=== PATIENT | male | born 1965 | race Caucasian/White ===

== ENCOUNTER 2019-09-16 17:35 | Inpatient (IN) ==
[2019-09-16] MEDS ORDERED: LACTATED RINGERS 1,000 ML IV ONE (18:44)
[2019-09-16] MEDS ORDERED: HYDROmorphone 2 MG/ML VIAL IV SCH ×2 (18:45→20:30)
--- NOTE | 2019-09-16 18:46 | Emergency Department Note ---
General Adult HPI - General Chief complaint: Cold/Flu Symptoms Stated complaint: SOB/weakness Time Seen by Provider: 09/16/19 18:40 Source: patient Mode of arrival: ambulatory Limitations: no limitations - History of Present Illness HPI Narrative: This patient has been ill for the last 4 days with flulike symptoms however his flu swab was negative. He has had a lot of cough and congestion and feels dehydrated but no nausea or vomiting, also has headache and general achiness. - Related Data Home Medications Medication Instructions Recorded Confirmed cyanocobalamin (vitamin B-12) 2,000 mcg PO QDAY 08/26/15 09/16/19 2,000 mcg tablet,extended release magnesium oxide 400 mg PO BID cap 08/26/15 09/16/19 thiamine HCl (vitamin B1) 100 mg 100 mg PO QDAY 06/05/17 09/16/19 tablet antibiotic unknown PO 11/12/18 03/18/19 Previous Rx's Medication Instructions Recorded cholecalciferol (vitamin D3) 10,000 unit PO QDAY #1 cap 09/20/15 10,000 unit capsule potassium chloride 20 mEq oral 20 meq PO BID #180 packet 08/28/17 packet Bipap #1 each 11/29/17 apixaban 5 mg tablet 5 mg PO BID 90 Days #180 tab 04/30/18 allopurinol 100 mg tablet 200 mg PO QDAY #180 tab 12/17/18 metoprolol tartrate 50 mg tablet 50 mg PO BID #180 tab 12/17/18 gabapentin 300 mg capsule 300 mg PO TID #180 cap 04/06/19 amiodarone 200 mg tablet 200 mg PO QDAY #90 tab 04/23/19 sertraline 100 mg tablet 200 mg PO QDAY #60 tab 04/30/19 simvastatin 40 mg tablet 40 mg PO QAM #90 tab 07/16/19 furosemide 40 mg tablet 40 mg PO BID #180 tab 09/03/19 Allergies Allergy/AdvReac Type Severity Reaction Status Date / Time No Known Drug Allergies Allergy Verified 03/18/19 09:51 Review of Systems All systems ED: reviewed and negative except as stated. Past Medical History - Past Medical History [facility] Narrative: Medical History (Last Reviewed 03/23/19 @ 09:03 by Evin Elliott DO) SILVIA (obstructive sleep apnea) (Chronic) Upper respiratory infection (Acute) Gout (Acute) Congenital vascular anomalies (Chronic) Chest tightness (Acute) Chronic kidney disease, stage III (moderate) (Chronic 03/17/15) Vitamin D deficiency (Chronic) B12 deficiency (Chronic 04/21/14) Tremor (Chronic) Prediabetes (Chronic 04/21/14) Generalized polyneuropathy (Chronic 04/07/14) Morbid obesity (Chronic 04/07/14) Mitral regurgitation (Chronic) Insomnia (Chronic) Essential hypertension (Chronic) Dyslipidemia (Chronic) Alcoholic hepatitis (Chronic 08/14/13) Chronic GERD (Chronic) Erectile dysfunction (Chronic 04/07/14) Depression (Chronic) Congestive heart failure (Chronic 07/05/14) Atrial fibrillation (Chronic 07/05/14) Prinzmetal angina (Chronic 03/28/14) Microcytic anemia (Chronic 08/15/13) Alcohol dependence (Chronic 01/26/15) Alcohol abuse (Chronic) COPD (chronic obstructive pulmonary disease) (Chronic) Cataract (Chronic) Heart disease (Chronic) Disorder of gallbladder (Inactive) Heart disease (Inactive) Renal failure (Inactive) Past Surgical History (Last Reviewed 03/23/19 @ 09:03 by Evin Elliott DO) H/O gastric bypass (Chronic 04/07/14) History of cholecystectomy (Chronic ~2003) History of colonoscopy (Chronic) History of hernia surgery (Chronic) Hx of cholecystectomy (Inactive) Hx of colonoscopy (Inactive) Family History (Last Reviewed 03/23/19 @ 09:03 by Evin Elliott DO) Unknown Malignant neoplasm of urinary bladder Malignant neoplasm of colon Mother Cerebrovascular accident (CVA) Sister Acute myocardial infarction Medical history: Reports: atrial fibrillation, CHF, DM, GERD, hyperlipidemia, hypertension, renal disease, valvular heart disease Psychiatric history: Reports: depression - Social History smoking status: Former smoker Alcohol use: Reports: Heavy Drug use: Reports: none Physical Exam Limitations: no limitations General appearance: alert Head: atraumatic Eye: Present: normal appearance ENT: Present: normal exam Neck: Present: normal inspection Chest: Present: normal inspection Respiratory: Present: rales/crackles Cardiovascular: Present: regular rate, normal rhythm, normal heart sounds Abdominal: Present: soft. Absent: distention, tenderness Neurological: Present: alert Psychiatric: Present: normal affect Skin: Present: warm, dry Course Vital Signs Temperature 97.1 F 09/16/19 17:37 Pulse Rate 11 L 09/16/19 17:37 Respiratory Rate 22 09/16/19 17:37 Blood Pressure 171/82 09/16/19 17:37 Pulse Oximetry (%) 94 09/16/19 17:37 Temperature 98.9 F 09/16/19 21:42 Pulse Rate 102 H 09/16/19 21:42 Respiratory Rate 18 09/16/19 21:42 Blood Pressure 155/76 09/16/19 21:42 Pulse Oximetry (%) 96 09/16/19 21:42 Medical Decision Making - MDM Narrative Medical decision making narrative: This patient appears to have pneumonia with a bit of an elevated lactic acid. He was cultured and treated with Zithromax and Rocephin. He will be admitted to the hospital. - Lab Data Lab results reviewed: Yes I reviewed the patient's lab results. Result diagrams: 09/16/19 19:00 09/16/19 19:00 Lab Results 09/16/19 09/16/19 09/16/19 Range/Units 19:00 19:00 19:00 WBC 3.2 L (4.5-11.0) K/mcL RBC 3.77 L (4.50-5.90) M/mcL Hgb 11.6 L (13.5-16.5) g/dL Hct 35.3 L (41.0-55.0) % MCV 93.6 (80.0-100.0) fL MCH 30.8 (26.0-34.0) pg MCHC 32.9 (31.0-36.0) g/dL RDW 18.3 H (11.5-14.5) % Plt Count 130 L (140-440) K/mcL MPV 7.0 L (7.4-10.4) fL Gran % 80.6 H (38.0-78.0) % Lymph % (Auto) 10.3 L (15.5-49.0) % [place] % (Auto) 8.8 (1.0-12.0) % Eos % (Auto) 0 (0.0-7.0) % Baso % (Auto) 0.3 (0.0-2.0) % Gran # 2.6 (1.8-8.0) K/mcL Lymph # (Auto) 0.3 L (1.5-4.8) K/mcL [place] # (Auto) 0.3 (0.1-0.9) K/mcL Eos # (Auto) 0 (0.0-0.7) K/mcL Baso # (Auto) 0 (0.0-0.3) K/mcL VBG Lactic Acid 3.7 H (0.5-2.0) mmol/L Sodium 139 (133-145) mmol/L Potassium 3.7 (3.3-5.1) mmol/L Chloride 100 (96-108) mmol/L Carbon Dioxide 19 L (22-30) mmol/L Anion Gap 20.0 H (8-16) BUN 12 (6-20) mg/dl Creatinine 0.9 (0.7-1.2) mg/dl GFR Calculation 95 Glucose 97 (70-105) mg/dL Calcium 8.5 L (8.6-10.4) mg/dl Total Bilirubin 0.4 (0.0-1.0) mg/dL AST 72 H (0-37) U/l ALT 33 (0-40) U/l Alkaline Phosphatase 106 (39-117) U/L Total Protein 6.8 (5.9-8.4) gm/dL Albumin 4.0 (3.2-5.2) gm/dL Globulin 2.8 (2.2-3.7) gm/dL Albumin/Globulin Ratio 1.4 (1.0-2.3) Procalcitonin (<0.10) ng/mL 09/16/19 Range/Units 19:00 WBC (4.5-11.0) K/mcL RBC (4.50-5.90) M/mcL Hgb (13.5-16.5) g/dL Hct (41.0-55.0) % MCV (80.0-100.0) fL MCH (26.0-34.0) pg MCHC (31.0-36.0) g/dL RDW (11.5-14.5) % Plt Count (140-440) K/mcL MPV (7.4-10.4) fL Gran % (38.0-78.0) % Lymph % (Auto) (15.5-49.0) % [place] % (Auto) (1.0-12.0) % Eos % (Auto) (0.0-7.0) % Baso % (Auto) (0.0-2.0) % Gran # (1.8-8.0) K/mcL Lymph # (Auto) (1.5-4.8) K/mcL [place] # (Auto) (0.1-0.9) K/mcL Eos # (Auto) (0.0-0.7) K/mcL Baso # (Auto) (0.0-0.3) K/mcL VBG Lactic Acid (0.5-2.0) mmol/L Sodium (133-145) mmol/L Potassium (3.3-5.1) mmol/L Chloride (96-108) mmol/L Carbon Dioxide (22-30) mmol/L Anion Gap (8-16) BUN (6-20) mg/dl Creatinine (0.7-1.2) mg/dl GFR Calculation Glucose (70-105) mg/dL Calcium (8.6-10.4) mg/dl Total Bilirubin (0.0-1.0) mg/dL AST (0-37) U/l ALT (0-40) U/l Alkaline Phosphatase (39-117) U/L Total Protein (5.9-8.4) gm/dL Albumin (3.2-5.2) gm/dL Globulin (2.2-3.7) gm/dL Albumin/Globulin Ratio (1.0-2.3) Procalcitonin < 0.05 (<0.10) ng/mL - Radiology Data Radiology results reviewed: Yes I reviewed the patient's radiology results. Disposition Pt seen by SUBASSEMBLY SUPERVISOR/PA only: No Clinical Impression: Community acquired pneumonia Disposition: Xfer As Inpt ([facility]) Condition: Good Referrals: Evin Elliott DO [Primary Care Provider] - Time of Disposition: 22:30
[2019-09-16] MEDS ORDERED: AZITHROMYCIN 500 MG in DEXTROSE 5% IN WATER 250 ML IV ONE (19:36)
[2019-09-16] MEDS ORDERED: cefTRIAXone 2 GM in DEXTROSE 5% IN WATER 50 ML IV ONE (19:36)
[2019-09-16 19:46] LABS: Basophils # (Auto) 0 K/mcL (0.0-0.3); Basophils % (Auto) 0.3 % (0.0-2.0); Eosinophils # (Auto) 0 K/mcL (0.0-0.7); Eosinophils % (Auto) 0 % (0.0-7.0); Granulocytes % (Auto) 80.6 % (38.0-78.0); Hematocrit 35.3 % (41.0-55.0); Hemoglobin 11.6 g/dL (13.5-16.5); Lymphocytes # (Auto) 0.3 K/mcL (1.5-4.8); Lymphocytes % (Auto) 10.3 % (15.5-49.0); Mean Cell Volume 93.6 fL (80.0-100.0); Mean Corpuscular HGB Conc 32.9 g/dL (31.0-36.0); Monocytes # (Auto) 0.3 K/mcL (0.1-0.9); Monocytes % (Auto) 8.8 % (1.0-12.0); Platelet Count 130 K/mcL (140-440); RBC 3.77 M/mcL (4.50-5.90); Red Cell Distribution Width 18.3 % (11.5-14.5); WBC 3.2 K/mcL (4.5-11.0)
[2019-09-16 20:05] LABS: ALT/SGPT 33 U/l (0-40); AST/SGOT 72 U/l (0-37); Albumin/Globulin Ratio 1.4 (1.0-2.3); Alkaline Phosphatase 106 U/L (39-117); Bilirubin,Total 0.4 mg/dL (0.0-1.0); Blood Urea Nitrogen 12 mg/dl (6-20); Calcium 8.5 mg/dl (8.6-10.4); Carbon Dioxide 19 mmol/L (22-30); Chloride 100 mmol/L (96-108); Globulin 2.8 gm/dL (2.2-3.7); Glomerular Filtration Rate 95; Glucose 97 mg/dL (70-105)
--- NOTE | 2019-09-16 22:30 | Internal Med History&Physical ---
Medical - H&P: [facility] Patient information: Note initiated : 09/16/19 at 10:27 pm Service Date, if different from initiated Date: [] Patient: Gunner Bliss a 54 y/o M admitted on for SOB/weakness. Chief Complaint: [] History of present illness: Mr. Bliss is a 54 year old M Who presents to the hospital for cough and congestion shortness of breath. Patient states about 4 days ago he developed flulike symptoms with headache body aches a cough productive of white sputum. He is complained of fevers and chills. He also has a pleuritic chest pain. Complained of shortness of breath. He had a poor sleep past few nights because of coughing. In the ED he seemed to build to maintain his saturations but did have a mild tachycardia leukopenia and elevated lactate. Procalcitonin was negative. Flu screen was negative. Chest x-ray shows no infiltrates on the right. Denies any weight gain or increased edema in his legs. Review of Systems: Pertinent positives as above. Denies nausea/vomiting/abdominal pain/diarrhea. Remaining 10 point review of system reviewed negative Medical - H&P: [facility] Medical history: Medical History (Last Reviewed 03/23/19 @ 09:03 by Evin Elliott DO) SILVIA (obstructive sleep apnea) (Chronic) Upper respiratory infection (Acute) Gout (Acute) Congenital vascular anomalies (Chronic) Chest tightness (Acute) Chronic kidney disease, stage III (moderate) (Chronic 03/17/15) Vitamin D deficiency (Chronic) B12 deficiency (Chronic 04/21/14) Tremor (Chronic) Prediabetes (Chronic 04/21/14) Generalized polyneuropathy (Chronic 04/07/14) Morbid obesity (Chronic 04/07/14) Mitral regurgitation (Chronic) Insomnia (Chronic) Essential hypertension (Chronic) Dyslipidemia (Chronic) Alcoholic hepatitis (Chronic 08/14/13) Chronic GERD (Chronic) Erectile dysfunction (Chronic 04/07/14) Depression (Chronic) Congestive heart failure (Chronic 07/05/14) Atrial fibrillation (Chronic 07/05/14) Prinzmetal angina (Chronic 03/28/14) Microcytic anemia (Chronic 08/15/13) Alcohol dependence (Chronic 01/26/15) Alcohol abuse (Chronic) COPD (chronic obstructive pulmonary disease) (Chronic) Cataract (Chronic) Heart disease (Chronic) Disorder of gallbladder (Inactive) Heart disease (Inactive) Renal failure (Inactive) Past Surgical History (Last Reviewed 03/23/19 @ 09:03 by Evin Elliott DO) H/O gastric bypass (Chronic 04/07/14) History of cholecystectomy (Chronic ~2003) History of colonoscopy (Chronic) History of hernia surgery (Chronic) Hx of cholecystectomy (Inactive) Hx of colonoscopy (Inactive) Family History (Last Reviewed 03/23/19 @ 09:03 by Evin Elliott DO) Unknown Malignant neoplasm of urinary bladder Malignant neoplasm of colon Mother Cerebrovascular accident (CVA) Sister Acute myocardial infarction Social History (Last Updated 03/23/19 @ 09:04 by Evin Elliott DO) Code smoking 7 years ago Drinks 3 to 4 glasses of wine per night Ambulates with a cane Lives at home with his Medical - H&P: Meds Home Medications Medication Instructions Recorded Confirmed Type cyanocobalamin (vitamin B-12) 2,000 mcg PO QDAY 08/26/15 09/16/19 History 2,000 mcg tablet,extended release magnesium oxide 400 mg PO BID cap 08/26/15 09/16/19 History cholecalciferol (vitamin D3) 10,000 unit PO QDAY #1 cap 09/20/15 09/16/19 Rx 10,000 unit capsule thiamine HCl (vitamin B1) 100 mg 100 mg PO QDAY 06/05/17 09/16/19 History tablet potassium chloride 20 mEq oral 20 meq PO BID #180 packet 08/28/17 09/16/19 Rx packet Bipap #1 each 11/29/17 03/18/19 Rx apixaban 5 mg tablet 5 mg PO BID 90 Days #180 tab 04/30/18 09/16/19 Rx antibiotic unknown PO 11/12/18 03/18/19 History allopurinol 100 mg tablet 200 mg PO QDAY #180 tab 12/17/18 09/16/19 Rx metoprolol tartrate 50 mg tablet 50 mg PO BID #180 tab 12/17/18 09/16/19 Rx gabapentin 300 mg capsule 300 mg PO TID #180 cap 04/06/19 09/16/19 Rx amiodarone 200 mg tablet 200 mg PO QDAY #90 tab 04/23/19 09/16/19 Rx sertraline 100 mg tablet 200 mg PO QDAY #60 tab 04/30/19 09/16/19 Rx simvastatin 40 mg tablet 40 mg PO QAM #90 tab 07/16/19 09/16/19 Rx furosemide 40 mg tablet 40 mg PO BID #180 tab 09/03/19 09/16/19 Rx Allergies Allergy/AdvReac Type Severity Reaction Status Date / Time No Known Drug Allergies Allergy Verified 03/18/19 09:51 Medical - H&P: Exam - Constitutional Vitals: Temp Pulse Resp BP Pulse Ox 98.9 F 102 H 18 155/76 96 09/16/19 21:42 09/16/19 21:42 09/16/19 21:42 09/16/19 21:42 09/16/19 21:42 Exam: General: Alert, Awake, No acute Distress, obese Eyes/N/T: EOMI, PERRL, DMM Head/Neck: neck supple, normocephalic atraumatic CV: Irreg irreg, No murmurs, normal s1/s2 Pulm: mild b/l rhonchi and occasiona wheeze Abd: soft, nontender, +BS x4 Ext: no clubbing/cyanosis, b/l LE 1+ edema Neuro: Alert, no focal deficits, moves all extremities, CN 2-12 grossly intact, symmetrical strength b/l upper/lower, sensations intact b/l upper/lower Skin: warm/dry Medical - H&P: Reslt - Labs CBC & Chem 7: 09/16/19 19:00 09/16/19 19:00 Labs: Short CBC 09/16/19 Range/Units 19:00 WBC 3.2 L (4.5-11.0) K/mcL Hgb 11.6 L (13.5-16.5) g/dL Hct 35.3 L (41.0-55.0) % Plt Count 130 L (140-440) K/mcL BMP 09/16/19 19:00 Sodium 139 Potassium 3.7 Chloride 100 Carbon Dioxide 19 L BUN 12 Creatinine 0.9 Glucose 97 Calcium 8.5 L Liver Function 09/16/19 Range/Units 19:00 Total Bilirubin 0.4 (0.0-1.0) mg/dL AST 72 H (0-37) U/l ALT 33 (0-40) U/l Alkaline Phosphatase 106 (39-117) U/L Albumin 4.0 (3.2-5.2) gm/dL - Impressions Chest x-ray showing infiltrate right middle lobe, some mild cephalization. Medical - H&P: A/P - Narrative A/P Narrative: A: *Pneumonia: Bacterial vs viral *Lactic acidosis: *SIRS: *Costochondritis: *Leukopenia: 2/2 above *Thrombocytopenia: 2/2 above *Afib: On amiodarone and Lopressor and Eliquis -follows with Dr. Kenney *h/o CVA: *HTN/HLD: *Obesity: *SILVIA intolerant to CPAP: *Pression: *COPD (no home oxygen): *CKD: *Anemia, chronic: *Depression: P: -IVF's, f/u lactate -resp panel, myco/strep, MRSA screen -Rocephin/Azithro; pending BC/SC -ABG -nebs, IS/Acapella -cont sharon Amio/BB -CIWA - -pt/ot -ppx: home eliquis
[2019-09-16] MEDS ORDERED: 0.9 % SODIUM CHLORIDE 250 ML IV ONE (22:38)
[2019-09-16] MEDS ORDERED: SENNOSIDES 1 TABLET PO PRN (23:00)
[2019-09-16] MEDS ORDERED: AZITHROMYCIN 500 MG in DEXTROSE 5% IN WATER 250 ML IV SCH (23:00)
[2019-09-16] MEDS ORDERED: LORazepam 2 MG/ML VIAL IV PRN (23:00)
[2019-09-16] MEDS ORDERED: POTASSIUM CHLORIDE 40 MEQ in DEXTROSE 5% IN WATER 500 ML IV PRN (23:00)
[2019-09-16] MEDS ORDERED: POTASSIUM CHLORIDE 20 MEQ TABLET PO PRN ×2 (23:00)
[2019-09-16] MEDS ORDERED: ONDANSETRON 4 MG/2 ML VIAL IV PRN (23:00)
[2019-09-16] MEDS ORDERED: chlordiazePOXIDE 25 MG CAPSULE PO PRN (23:00)
[2019-09-16] MEDS ORDERED: IPRATROPIUM/ALBUTEROL 3 ML AMPUL.NEB NEB PRN (23:00)
[2019-09-16] MEDS ORDERED: BENZONATATE 100 MG CAPSULE PO ONE (23:00)
[2019-09-16] MEDS ORDERED: cefTRIAXone 2 GM in DEXTROSE 5% IN WATER 50 ML IV SCH (23:00)
[2019-09-16] MEDS ORDERED: IPRATROPIUM/ALBUTEROL 3 ML AMPUL.NEB NEB ONE (23:00)
[2019-09-16] MEDS ORDERED: POLYETHYLENE GLYCOL 3350 17 GM PACKET PO PRN (23:00)
[2019-09-16 23:53] LABS: ALT/SGPT 33 U/l (0-40); AST/SGOT 72 U/l (0-37); Albumin/Globulin Ratio 1.4 (1.0-2.3); Alkaline Phosphatase 106 U/L (39-117); Bilirubin,Total 0.4 mg/dL (0.0-1.0); Blood Urea Nitrogen 12 mg/dl (6-20); Calcium 8.5 mg/dl (8.6-10.4); Carbon Dioxide 19 mmol/L (22-30); Chloride 100 mmol/L (96-108); Globulin 2.8 gm/dL (2.2-3.7); Glomerular Filtration Rate 95; Glucose 97 mg/dL (70-105)
[2019-09-17] MEDS: 0.9 % SODIUM CHLORIDE 1,000 ML IV SCH ×2 (00:03→06:46)
[2019-09-17 00:04] LABS: Bilirubin,Direct < 0.2 mg/dL (0.0-0.3); Lactate Dehydrogenase 261 U/L (94-250); Triglycerides 101 mg/dl (<150); Uric Acid 6.1 mg/dL (2.5-8.0)
[2019-09-17 00:08] LABS: Phosphorous 2.3 mg/dL (2.7-4.5)
[2019-09-17] MEDS ORDERED: LABETALOL 5 MG/ML ML IV ONE (00:29)
[2019-09-17] MEDS ORDERED: HYDROcodone/APAP 5/325MG TABLET PO ONE (00:31)
[2019-09-17] MEDS ORDERED: IPRATROPIUM/ALBUTEROL 3 ML AMPUL.NEB NEB ONE (00:31)
[2019-09-17 00:41] LABS: Anisocytosis 1+ (NONE SEEN); Band Neutrophils % 2 % (0-10); Basophils % (Manual) 2 % (0-2); Lymphocytes % 10 % (15-49); Monocytes % (Manual) 5 % (1-12); Nucleated Red Blood Cells 1 % (0-0); Platelet Estimate DECREASED (NORMAL); Polychromasia 1+ (NONE SEEN); RBC Morphology ABNORM (NORMAL); Segmented Neutrophils % 81 % (38-78)
[2019-09-17] MEDS: IPRATROPIUM/ALBUTEROL 3 ML AMPUL.NEB NEB SCH ×4 (01:37→18:26)
[2019-09-17] MEDS ORDERED: MAGNESIUM SULFATE 2 GM/50 ML BAG IV ONE (01:45)
[2019-09-17] MEDS: MAGNESIUM SULFATE 2 GM/50 ML BAG IV PRN (01:46)
[2019-09-17 03:10] LABS: Appearance,Urine CLEAR; Bacteria,Urine 0 /hpf (0); Bilirubin,Urine NEG (NEG); Color,Urine YELLOW; Culture Indicated,Urine NO; Glucose,Urine (UA) NEGATIVE (NEG); Ketones,Urine 20 mg/dL (NEG); Leukocyte Esterase,Urine NEG /uL (NEG); Mucus,Urine FEW /hpf (0); Nitrate,Urine NEG (NEG); Protein,Urine 100 mg/dL (NEG); Urine Blood 0.03 mg/dL (<0.03); Urine RBC 1 /hpf (0-1); Urine Squamous Epithelial Cell < 1 /hpf (0-4); Urine WBC < 1 /hpf (0-4); Urobilinogen,Urine NEG (NEG)
[2019-09-17 05:28] LABS: Hematocrit 31.5 % (41.0-55.0); Hemoglobin 10.5 g/dL (13.5-16.5); Mean Cell Volume 93.9 fL (80.0-100.0); Mean Corpuscular HGB Conc 33.3 g/dL (31.0-36.0); Mean Platelet Volume 7.2 fL (7.4-10.4); Platelet Count 115 K/mcL (140-440); RBC 3.36 M/mcL (4.50-5.90); Red Cell Distribution Width 17.8 % (11.5-14.5)
[2019-09-17] MEDS ORDERED: 0.9 % SODIUM CHLORIDE 10 ML SYRINGE IV SCH (06:00)
[2019-09-17 06:10] LABS: Anisocytosis 1+ (NONE SEEN); Band Neutrophils % 4 % (0-10); Lymphocytes % 11 % (15-49); Monocytes % (Manual) 5 % (1-12); Platelet Estimate DECREASED (NORMAL); RBC Morphology ABNORM (NORMAL); Segmented Neutrophils % 80 % (38-78)
[2019-09-17] MEDS: 0.9 % SODIUM CHLORIDE 10 ML SYRINGE IV SCH ×3 (06:11→22:04)
--- NOTE | 2019-09-17 07:31 | Internal Med Progress Note ---
Medical - PN: Subj Patient information: Note initiated : 09/17/19 at 7:23 am Service Date, if different from initiated Date: [] Patient: Gunner Bliss a 54 y/o M admitted on 09/16/19 for SOB/weakness. Chief Complaint: [] Interval history: Mr. Bliss is a 54 year old M Who presents to the hospital for cough and congestion shortness of breath. Patient states about 4 days ago he developed flulike symptoms with headache body aches a cough productive of white sputum. He is complained of fevers and chills. He also has a pleuritic chest pain. Complained of shortness of breath. He had a poor sleep past few nights because of coughing. In the ED he seemed to build to maintain his saturations but did have a mild t achycardia leukopenia and elevated lactate. Procalcitonin was negative. Flu screen was negative. Chest x-ray shows no infiltrates on the right. Denies any weight gain or increased edema in his legs. 09/17 Coughing still. Has some shortness of breath but is slowly improving. States the DuoNeb treatment helped. Overall feeling a little better. Poor sleep. Did have some diarrhea this morning. [place] a little chilled this morning Review of Systems: denies headache/fever/nausea/vomiting/abdominal pain/diarrhea. Otherwise see above. - Constitutional Vitals: Vital Signs Temp Pulse Resp BP Pulse Ox 98.3 F 89 18 166/98 100 09/16/19 22:54 09/17/19 07:15 09/17/19 07:15 09/17/19 07:00 09/17/19 07:00 Period Temp Pulse Resp BP Sys/Bunch Pulse Ox Last 24 Hr 97.1 F-98.9 F 11-103 18-24 142-182/73-99 90-100 Intake and Output 09/16/19 09/17/19 09/17/19 21:59 05:59 13:59 Intake Total 1050 1190 672 Output Total 325 Balance 1050 865 672 Weight 149.685 kg 149.685 kg Intake & Output: Intake & Output 09/16/19 09/17/19 09/17/19 21:59 05:59 13:59 Intake Total 1050 1190 672 Output Total 325 Balance 1050 865 672 Weight 149.685 kg 149.685 kg Intake: IV 1050 550 672 Sodium Chloride 0.9% 1,000 ml @ 672 100 mls/hr IV .Q10H MIRANDA Rx#: [id number] Sodium Chloride 0.9% 250 ml @ 250 Wide Open IV BOLUS ONE Rx#: [id number] Zithromax 500 mg In Dextrose 5% 250 in Water 250 ml @ 250 mls/hr IV ONCE ONE Rx#:[id number] Lactated Ringers 1,000 ml @ 1000 Wide Open IV BOLUS ONE Rx#: [id number] Rocephin 2 gm In Dextrose 5% in 50 Water 50 ml @ 100 mls/hr IV ONCE ONE Rx#:[id number] Oral 640 Output: Void Amount 325 Other: Urine Appearance Clear Urine Color Dark Yellow Urine Odor Normal Stool Size Moderate Stool Color Brown Stool Consistency Loose # Voids 1 # Bowel Movements 1 Exam: General: Alert, Awake, No acute Distress, obese Eyes/N/T: EOMI, Head/Neck: neck supple, CV: reg at this time, No murmurs, Pulm: b/l rhonchi and occasional wheeze Abd: soft, nontender, +BS x4 Ext: no clubbing/cyanosis, b/l LE trace edema Neuro: Alert, no focal deficits, moves all extremities, Skin: warm/dry Medical - PN: Obj Da - Labs CBC & Chem 7: 09/17/19 04:10 09/16/19 19:00 Labs: Abnormal Lab Results 09/17/19 09/17/19 09/16/19 04:10 02:15 19:00 WBC 3.0 L RBC 3.36 L Hgb 10.5 L Hct 31.5 L RDW 17.8 H Plt Count 115 L MPV 7.2 L Gran % Lymph % (Auto) Lymph # (Auto) Seg Neutrophils % 80 H Lymphocytes % 11 L Nucleated RBCs Platelet Estimate Decreased A RBC Morphology Abnorm A Polychromasia Anisocytosis 1+ A VBG Lactic Acid Carbon Dioxide 19 L Anion Gap 20.0 H Calcium 8.5 L Phosphorus 2.3 L Magnesium 1.3 L AST 72 H Lactate Dehydrogenase 261 H Urine Protein 100 A Urine Ketones 20 A Urine Occult Blood 0.03 A 09/16/19 09/16/19 09/16/19 19:00 19:00 19:00 WBC RBC Hgb Hct RDW Plt Count MPV Gran % Lymph % (Auto) Lymph # (Auto) Seg Neutrophils % 81 H Lymphocytes % 10 L Nucleated RBCs 1 H Platelet Estimate Decreased A RBC Morphology Abnorm A Polychromasia 1+ A Anisocytosis 1+ A VBG Lactic Acid 3.7 H Carbon Dioxide 19 L Anion Gap 20.0 H Calcium 8.5 L Phosphorus Magnesium AST 72 H Lactate Dehydrogenase Urine Protein Urine Ketones Urine Occult Blood 09/16/19 19:00 WBC 3.2 L RBC 3.77 L Hgb 11.6 L Hct 35.3 L RDW 18.3 H Plt Count 130 L MPV 7.0 L Gran % 80.6 H Lymph % (Auto) 10.3 L Lymph # (Auto) 0.3 L Seg Neutrophils % Lymphocytes % Nucleated RBCs Platelet Estimate RBC Morphology Polychromasia Anisocytosis VBG Lactic Acid Carbon Dioxide Anion Gap Calcium Phosphorus Magnesium AST Lactate Dehydrogenase Urine Protein Urine Ketones Urine Occult Blood Meds: Medications Acetaminophen (Tylenol) 650 mg PO Q6HP PRN PRN Reason: PAIN/FEVER > 101 Hydrocodone Bitart/Acetaminophen ([place] 5/325mg) 1 tab PO Q4-6HP PRN; Protocol PRN Reason: Per Pain Protocol Albuterol/Ipratropium (Duoneb) 3 ml NEB Q6HRT MIRANDA Last Admin: 09/17/19 07:14 Dose: 3 ml Documented by: Albuterol/Ipratropium (Duoneb) 3 ml NEB Q4HP PRN PRN Reason: Shortness Of Breath Allopurinol (Zyloprim) 200 mg PO QDAY MIRANDA Amiodarone HCl (Cordarone) 200 mg PO QDAY MIRANDA Apixaban (Eliquis) 5 mg PO BID MIRANDA Chlordiazepoxide HCl (Librium) 25 mg PO Q4HP PRN PRN Reason: Alcohol Withdrawal Docusate Sodium (Colace) 100 mg PO BID MIRANDA Furosemide (Lasix) 40 mg PO BID MIRANDA Gabapentin (Neurontin) 300 mg PO TID MIRANDA Potassium Chloride 40 meq/ (Dextrose) 520 mls @ 130 mls/hr IV UD PRN PRN Reason: Potassium < 3 Magnesium Sulfate (Magnesium Sulfate) 2 gm in 50 mls @ 50 mls/hr IV UD PRN PRN Reason: Magnesium </= 1.6 Last Infusion: 09/17/19 03:00 Dose: Infused Documented by: Sodium Chloride (Sodium Chloride 0.9%) 1,000 mls @ 100 mls/hr IV .Q10H [facility] Last Admin: 09/17/19 06:46 Dose: 100 mls/hr Documented by: Ceftriaxone Sodium 2 gm/ (Dextrose) 50 mls @ 100 mls/hr IV Q24H [facility]; Protocol Azithromycin 500 mg/ Dextrose 250 mls @ 250 mls/hr IV Q24H [facility]; Protocol Stop: 09/19/19 10:59 Labetalol HCl (Trandate) 0 mg IV Q2HP PRN PRN Reason: Hypertension Lorazepam (Ativan) 0 mg IV Q4HP PRN; Protocol PRN Reason: Alcohol Withdrawal Metoprolol Tartrate (Lopressor) 50 mg PO BID MIRANDA Metoprolol Tartrate (Lopressor) 5 mg IV Q2HP PRN PRN Reason: Tachyarrhythmias HR>110 Ondansetron HCl (Zofran) 4 mg IV Q4HP PRN PRN Reason: Nausea And Vomiting Polyethylene Glycol (Miralax) 17 gm PO DAILYP PRN PRN Reason: Constipation Potassium Chloride (Kdur) 40 meq PO UD PRN PRN Reason: Potssium is 3-3.5 Potassium Chloride (Kdur) 40 meq PO UD PRN PRN Reason: Potassium < 3 Potassium Chloride (Klor-Con) 20 meq PO BID MIRANDA Senna (Senokot) 2 tab PO DAILYP PRN PRN Reason: Constipation Sertraline HCl (Zoloft) 200 mg PO QDAY [facility] Simvastatin (Zocor) 40 mg PO QAM [facility] Sodium Chloride (Saline Flush) 10 ml IV Q8 [facility] Last Admin: 09/17/19 06:11 Dose: Not Given Documented by: Thiamine HCl (Vitamin B1) 100 mg PO DAILY [facility] Medical - PN: A/P - Time Spent With Patient Total time spent is greater than 50% in coordination of care (as documented) at patient's floor/unit and/or counseling patient: - Narrative A/P Narrative: A: *Pneumonia: likely viral (Human Metapneumovirus +) vs Bacterial -MRSA screen (+), Strep Ur Ag neg, PCT/CRP neg *Lactic acidosis: resolved *SIRS: improving *Costochondritis: *Leukopenia: 2/2 above *Thrombocytopenia: 2/2 above *Afib: On amiodarone and Lopressor and Eliquis -follows with Dr. Kenney *h/o CVA: *HTN/HLD: *Obesity: *SILVIA intolerant to CPAP: *Depression: *COPD (no home oxygen): *CKD: *Anemia, chronic: *Depression: *Hypomag/phos: P: -d/c IVF's -myco pending -Jeffepbenjamin/Rickyithadiel; pending BC/SC -nebs, IS/Acapella -cont sharon Amio/SUZI -MADDY - -pt/ot -ppx: home karenquis
[2019-09-17] MEDS: LABETALOL 5 MG/ML ML IV PRN (07:40)
--- NOTE | 2019-09-17 08:43 | XRay Report ---
HISTORY: Shortness of breath, cough and weakness FINDINGS: There is a small infiltrate in the right middle lobe, located above the eventration in the right diaphragm. There is an interstitial infiltrate in the right upper lobe. No pleural effusion is present and no adenopathy is detected. The left lung is clear and normally expanded. The heart is mildly enlarged. The aorta is mildly tortuous. Spine has a kyphotic curvature. There is mild loss in height of the T11 and T12 vertebra. IMPRESSION: Pneumonia in the right middle lobe and right upper lobe Mild cardiomegaly Interpreted and Authenticated by: Dylon Vargas 09/17/19
[2019-09-17] MEDS ORDERED: DOCUSATE SODIUM 100 MG CAPSULE PO SCH (09:00)
[2019-09-17] MEDS: SERTRALINE 100 MG TABLET PO SCH (09:28)
[2019-09-17] MEDS: cefTRIAXone 2 GM in DEXTROSE 5% IN WATER 50 ML IV SCH (09:28)
[2019-09-17] MEDS: SIMVASTATIN 40 MG TABLET PO SCH (09:29)
[2019-09-17] MEDS: FUROSEMIDE 40 MG TABLET PO SCH ×2 (09:29→20:29)
[2019-09-17] MEDS: GABAPENTIN 300 MG CAPSULE PO SCH ×3 (09:29→20:30)
[2019-09-17] MEDS: POTASSIUM CHLORIDE 20 MEQ PACKET PO SCH ×2 (09:29→20:30)
[2019-09-17] MEDS: THIAMINE 100 MG TABLET PO SCH (09:29)
[2019-09-17] MEDS: AMIODARONE HCL 200 MG TABLET PO SCH (09:29)
[2019-09-17] MEDS: METOPROLOL TARTRATE 50 MG TABLET PO SCH ×2 (09:29→20:30)
[2019-09-17] MEDS: ALLOPURINOL 100 MG TABLET PO SCH (09:29)
[2019-09-17] MEDS: APIXABAN 5 MG TABLET PO SCH ×2 (09:29→20:28)
[2019-09-17] MEDS ORDERED: AZITHROMYCIN 500 MG in DEXTROSE 5% IN WATER 250 ML IV SCH (10:00)
[2019-09-17] MEDS: BENZONATATE 100 MG CAPSULE PO PRN ×2 (10:07→23:08)
[2019-09-17] MEDS: DOXYCYCLINE HYCLATE 100 MG TABLET.ORL PO SCH ×2 (12:18→20:28)
[2019-09-17] MEDS: ACETAMINOPHEN 325 MG TABLET PO PRN (15:28)
[2019-09-17] MEDS: LACTOBACILLUS 1 CAPSULE PO SCH (20:27)
[2019-09-17] MEDS: MELATONIN 3 MG TABLET PO PRN (20:29)
[2019-09-17] MEDS: MUPIROCIN OINT 2% 22GM TOPICAL SCH (21:00)
[2019-09-18] MEDS: ACETAMINOPHEN 325 MG TABLET PO PRN (01:18)
[2019-09-18] MEDS: IPRATROPIUM/ALBUTEROL 3 ML AMPUL.NEB NEB SCH ×4 (01:30→19:02)
[2019-09-18] MEDS: BENZONATATE 100 MG CAPSULE PO PRN ×2 (01:40→10:53)
[2019-09-18] MEDS: LABETALOL 5 MG/ML ML IV PRN ×2 (01:45→04:16)
[2019-09-18] MEDS: 0.9 % SODIUM CHLORIDE 10 ML SYRINGE IV SCH ×3 (05:21→21:59)
[2019-09-18 05:59] LABS: Basophils # (Auto) 0 K/mcL (0.0-0.3); Basophils % (Auto) 0.2 % (0.0-2.0); Eosinophils # (Auto) 0 K/mcL (0.0-0.7); Eosinophils % (Auto) 0.2 % (0.0-7.0); Granulocytes % (Auto) 85.1 % (38.0-78.0); Hematocrit 34.1 % (41.0-55.0); Hemoglobin 11.1 g/dL (13.5-16.5); Lymphocytes # (Auto) 0.3 K/mcL (1.5-4.8); Lymphocytes % (Auto) 8.4 % (15.5-49.0); Mean Cell Volume 94.6 fL (80.0-100.0); Mean Corpuscular HGB Conc 32.6 g/dL (31.0-36.0); Mean Platelet Volume 7.6 fL (7.4-10.4); Monocytes # (Auto) 0.2 K/mcL (0.1-0.9); Monocytes % (Auto) 6.1 % (1.0-12.0); Platelet Count 111 K/mcL (140-440); Red Cell Distribution Width 18.1 % (11.5-14.5); WBC 3.2 K/mcL (4.5-11.0)
[2019-09-18 06:10] LABS: ALT/SGPT 22 U/l (0-40); AST/SGOT 45 U/l (0-37); Albumin 3.6 gm/dL (3.2-5.2); Albumin/Globulin Ratio 1.3 (1.0-2.3); Alkaline Phosphatase 88 U/L (39-117); Bilirubin,Direct < 0.2 mg/dL (0.0-0.3); Bilirubin,Total 0.4 mg/dL (0.0-1.0); Blood Urea Nitrogen 8 mg/dl (6-20); Calcium 8.6 mg/dl (8.6-10.4); Carbon Dioxide 27 mmol/L (22-30); Chloride 93 mmol/L (96-108); Globulin 2.7 gm/dL (2.2-3.7); Glomerular Filtration Rate 84; Glucose 111 mg/dL (70-105); Lactate Dehydrogenase 243 U/L (94-250); Phosphorous 1.7 mg/dL (2.7-4.5); Triglycerides 58 mg/dl (<150); Uric Acid 4.7 mg/dL (2.5-8.0)
--- NOTE | 2019-09-18 07:18 | Internal Med Progress Note ---
Medical - PN: Subj Patient information: Note initiated : 09/18/19 at 7:13 am Service Date, if different from initiated Date: [] Patient: Gunner Bliss a 54 y/o M admitted on 09/16/19 for SOB/weakness. Chief Complaint: [] Interval history: Mr. Bliss is a 54 year old M Who presents to the hospital for cough and congestion shortness of breath. Patient states about 4 days ago he developed flulike symptoms with headache body aches a cough productive of white sputum. He is complained of fevers and chills. He also has a pleuritic chest pain. Complained of shortness of breath. He had a poor sleep past few nights because of coughing. In the ED he seemed to build to maintain his saturations but did have a mild t achycardia leukopenia and elevated lactate. Procalcitonin was negative. Flu screen was negative. Chest x-ray shows no infiltrates on the right. Denies any weight gain or increased edema in his legs. 09/17 Coughing still. Has some shortness of breath but is slowly improving. States the DuoNeb treatment helped. Overall feeling a little better. Poor sleep. Did have some diarrhea this morning. [place] a little chilled this morning 09/18 still "feels bad but better". cough nonproductive, dyspnea when walking to bathroom. COOK. Review of Systems: denies headache/fever/nausea/vomiting/abdominal pain/diarrhea. Otherwise see above. - Constitutional Vitals: Vital Signs Temp Pulse Resp BP Pulse Ox 99.3 F H 90 22 149/88 96 09/18/19 04:00 09/18/19 01:00 09/18/19 04:00 09/18/19 04:26 09/18/19 04:00 Period Temp Pulse Resp BP Sys/Bunch Pulse Ox Last 24 Hr 97.2 F-99.3 F 78-95 16-22 130-156/81-94 94-96 Intake and Output 09/17/19 09/18/19 09/18/19 21:59 05:59 13:59 Intake Total 620 650 Output Total 400 300 Balance 220 350 Weight 154.448 kg Intake & Output: Intake & Output 09/17/19 09/18/19 09/18/19 21:59 05:59 13:59 Intake Total 620 650 Output Total 400 300 Balance 220 350 Weight 154.448 kg Intake: Oral 620 650 Output: Urine Catheter Amount 200 Void Amount 200 300 Other: Meal snack Percent of Meal Consumed 100% Feeding Ability Independent Urine Appearance Clear Clear Urine Color Straw Dark Yellow Urine Odor Normal Stool Size Large Stool Color Brown Stool Consistency Loose # Voids 1 # Bowel Movements 1 Exam: General: Alert, Awake, No acute Distress, obese Eyes/N/T: EOMI, Head/Neck: neck supple, CV: reg at this time, No murmurs, Pulm: b/l wheezing/rhonchi Abd: soft, nontender, +BS x4 Ext: no clubbing/cyanosis, b/l LE 1+ edema Neuro: Alert, no focal deficits, moves all extremities, Skin: warm/dry Medical - PN: Obj Da - Labs CBC & Chem 7: 09/18/19 04:10 09/18/19 04:10 Labs: Abnormal Lab Results 09/18/19 09/18/19 09/17/19 04:10 04:10 04:10 WBC 3.2 L 3.0 L RBC 3.60 L 3.36 L Hgb 11.1 L 10.5 L Hct 34.1 L 31.5 L RDW 18.1 H 17.8 H Plt Count 111 L 115 L MPV 7.2 L Gran % 85.1 H Lymph % (Auto) 8.4 L Lymph # (Auto) 0.3 L Seg Neutrophils % 80 H Lymphocytes % 11 L Nucleated RBCs Platelet Estimate Decreased A RBC Morphology Abnorm A Polychromasia Anisocytosis 1+ A VBG Lactic Acid Potassium 3.1 L Chloride 93 L Carbon Dioxide Anion Gap Glucose 111 H Calcium Phosphorus 1.7 L Magnesium AST 45 H Lactate Dehydrogenase Urine Protein Urine Ketones Urine Occult Blood 09/17/19 09/16/19 09/16/19 02:15 19:00 19:00 WBC RBC Hgb Hct RDW Plt Count MPV Gran % Lymph % (Auto) Lymph # (Auto) Seg Neutrophils % 81 H Lymphocytes % 10 L Nucleated RBCs 1 H Platelet Estimate Decreased A RBC Morphology Abnorm A Polychromasia 1+ A Anisocytosis 1+ A VBG Lactic Acid Potassium Chloride Carbon Dioxide 19 L Anion Gap 20.0 H Glucose Calcium 8.5 L Phosphorus 2.3 L Magnesium 1.3 L AST 72 H Lactate Dehydrogenase 261 H Urine Protein 100 A Urine Ketones 20 A Urine Occult Blood 0.03 A 09/16/19 09/16/19 09/16/19 19:00 19:00 19:00 WBC 3.2 L RBC 3.77 L Hgb 11.6 L Hct 35.3 L RDW 18.3 H Plt Count 130 L MPV 7.0 L Gran % 80.6 H Lymph % (Auto) 10.3 L Lymph # (Auto) 0.3 L Seg Neutrophils % Lymphocytes % Nucleated RBCs Platelet Estimate RBC Morphology Polychromasia Anisocytosis VBG Lactic Acid 3.7 H Potassium Chloride Carbon Dioxide 19 L Anion Gap 20.0 H Glucose Calcium 8.5 L Phosphorus Magnesium AST 72 H Lactate Dehydrogenase Urine Protein Urine Ketones Urine Occult Blood Meds: Medications Acetaminophen (Tylenol) 650 mg PO Q6HP PRN PRN Reason: PAIN/FEVER > 101 Last Admin: 09/18/19 01:18 Dose: 650 mg Documented by: Hydrocodone Bitart/Acetaminophen ([place] 5/325mg) 1 tab PO Q4-6HP PRN; Protocol PRN Reason: Per Pain Protocol Albuterol/Ipratropium (Duoneb) 3 ml NEB Q6HRT [facility] Last Admin: 09/18/19 01:30 Dose: 3 ml Documented by: Albuterol/Ipratropium (Duoneb) 3 ml NEB Q4HP PRN PRN Reason: Shortness Of Breath Allopurinol (Zyloprim) 200 mg PO QDAY [facility] Last Admin: 09/17/19 09:29 Dose: 200 mg Documented by: Amiodarone HCl (Cordarone) 200 mg PO QDAY [facility] Last Admin: 09/17/19 09:29 Dose: 200 mg Documented by: Apixaban (Eliquis) 5 mg PO BID [facility] Last Admin: 09/17/19 20:28 Dose: 5 mg Documented by: Benzonatate (Tessalon) 200 mg PO TIDP PRN PRN Reason: Cough Last Admin: 09/18/19 01:40 Dose: 200 mg Documented by: Chlordiazepoxide HCl (Librium) 25 mg PO Q4HP PRN PRN Reason: Alcohol Withdrawal Doxycycline Hyclate (Doxycycline Hyclate) 100 mg PO BID [facility]; Protocol Last Admin: 09/17/19 20:28 Dose: 100 mg Documented by: Furosemide (Lasix) 40 mg PO BID@0900,1500 [facility] Gabapentin (Neurontin) 300 mg PO TID [facility] Last Admin: 12/26/19 20:30 Dose: 300 mg Documented by: Potassium Chloride 40 meq/ (Dextrose) 520 mls @ 130 mls/hr IV UD PRN PRN Reason: Potassium < 3 Magnesium Sulfate (Magnesium Sulfate) 2 gm in 50 mls @ 50 mls/hr IV UD PRN PRN Reason: Magnesium </= 1.6 Last Infusion: 09/17/19 03:00 Dose: Infused Documented by: Ceftriaxone Sodium 2 gm/ (Dextrose) 50 mls @ 100 mls/hr IV Q24H [facility]; Protocol Last Infusion: 09/17/19 09:58 Dose: Infused Documented by: Labetalol HCl (Trandate) 0 mg IV Q2HP PRN PRN Reason: Hypertension Last Admin: 09/18/19 04:16 Dose: 10 mg Documented by: Lactobacillus Rhamnosus (Culturelle) 1 cap PO BID [facility] Last Admin: 09/17/19 20:27 Dose: 1 cap Documented by: Lorazepam (Ativan) 0 mg IV Q4HP PRN; Protocol PRN Reason: Alcohol Withdrawal Melatonin (Melatonin 3mg Tablet) 3 mg PO HSP PRN PRN Reason: Insomnia Last Admin: 09/17/19 20:29 Dose: 3 mg Documented by: Metoprolol Tartrate (Lopressor) 50 mg PO BID [facility] Last Admin: 09/17/19 20:30 Dose: 50 mg Documented by: Metoprolol Tartrate (Lopressor) 5 mg IV Q2HP PRN PRN Reason: Tachyarrhythmias HR>110 Mupirocin (Bactroban Oint 2%) 1 dose TOPICAL BID [facility] Last Admin: 09/17/19 21:00 Dose: 1 dose Documented by: Ondansetron HCl (Zofran) 4 mg IV Q4HP PRN PRN Reason: Nausea And Vomiting Polyethylene Glycol (Miralax) 17 gm PO DAILYP PRN PRN Reason: Constipation Potassium Chloride (Kdur) 40 meq PO UD PRN PRN Reason: Potssium is 3-3.5 Potassium Chloride (Kdur) 40 meq PO UD PRN PRN Reason: Potassium < 3 Potassium Chloride (Klor-Con) 20 meq PO BID [facility] Last Admin: 09/17/19 20:30 Dose: 20 meq Documented by: Senna (Senokot) 2 tab PO DAILYP PRN PRN Reason: Constipation Sertraline HCl (Zoloft) 200 mg PO QDAY [facility] Last Admin: 09/17/19 09:28 Dose: 200 mg Documented by: Simvastatin (Zocor) 40 mg PO QAM [facility] Last Admin: 09/17/19 09:29 Dose: 40 mg Documented by: Sodium Chloride (Saline Flush) 10 ml IV Q8 [facility] Last Admin: 09/18/19 05:21 Dose: 10 ml Documented by: Thiamine HCl (Vitamin B1) 100 mg PO DAILY [facility] Last Admin: 09/17/19 09:29 Dose: 100 mg Documented by: Medical - PN: A/P - Time Spent With Patient Total time spent is greater than 50% in coordination of care (as documented) at patient's floor/unit and/or counseling patient: - Narrative A/P Narrative: A: *Pneumonia: likely viral (Human Metapneumovirus +) vs Bacterial -MRSA screen (+), Strep Ur Ag neg, PCT/CRP neg *Bronchospasm: *Lactic acidosis: resolved *SIRS: improving *Costochondritis: *Leukopenia: 2/2 above, stable *Thrombocytopenia: 2/2 above, stable *Afib: On amiodarone and Lopressor and Eliquis -follows with Dr. Kenney *h/o CVA: *HTN/HLD: *Obesity: *SILVIA intolerant to CPAP: *Depression: *COPD (no home oxygen): *CKD: *Anemia, chronic: *Depression: *Hypomag/phos/braden: P: -myco pending -Doxycycline; pending BC/SC -nebs, IS/Acapella -short course steroids for bronchospasm -cont sharon Amio/BB -CIWA -pt/ot -ppx: home eliquis
[2019-09-18] MEDS: MUPIROCIN OINT 2% 22GM TOPICAL SCH ×2 (09:00→22:07)
[2019-09-18] MEDS: cefTRIAXone 2 GM in DEXTROSE 5% IN WATER 50 ML IV SCH (09:00)
[2019-09-18] MEDS ORDERED: predniSONE 20 MG TABLET PO ONE (09:09)
[2019-09-18] MEDS: MAGNESIUM SULFATE 2 GM/50 ML BAG IV PRN (10:06)
[2019-09-18] MEDS: POTASSIUM CHLORIDE 20 MEQ PACKET PO SCH ×2 (10:21→20:57)
[2019-09-18] MEDS: AMIODARONE HCL 200 MG TABLET PO SCH (10:21)
[2019-09-18] MEDS: DOXYCYCLINE HYCLATE 100 MG TABLET.ORL PO SCH ×2 (10:21→20:57)
[2019-09-18] MEDS: METOPROLOL TARTRATE 50 MG TABLET PO SCH ×2 (10:22→20:57)
[2019-09-18] MEDS: HYDROcodone/APAP 5/325MG TABLET PO PRN (10:22)
[2019-09-18] MEDS: THIAMINE 100 MG TABLET PO SCH (10:22)
[2019-09-18] MEDS: FUROSEMIDE 40 MG TABLET PO SCH ×2 (10:23→15:00)
[2019-09-18] MEDS: ALLOPURINOL 100 MG TABLET PO SCH (10:23)
[2019-09-18] MEDS: GABAPENTIN 300 MG CAPSULE PO SCH ×3 (10:23→22:07)
[2019-09-18] MEDS: PHOSPHORUS 250 MG TABLET PO SCH ×4 (10:53→20:57)
[2019-09-18] MEDS: SERTRALINE 100 MG TABLET PO SCH (10:53)
[2019-09-18] MEDS: SIMVASTATIN 40 MG TABLET PO SCH (10:53)
[2019-09-18] MEDS: APIXABAN 5 MG TABLET PO SCH ×2 (10:53→20:57)
[2019-09-18] MEDS: LACTOBACILLUS 1 CAPSULE PO SCH ×2 (10:53→20:57)
--- NOTE | 2019-09-18 19:07 | Discharge Summary ---
Medical - DS: Prov Patient information: Note initiated : 09/18/19 at 7:05 pm Service Date, if different from initiated Date: [] Patient: Gunner Bliss 54 y/o M admitted on 09/16/19 for SOB/weakness. Chief Complaint: [] Date of admission: 09/16/19 22:54 Primary care physician: Evin Elliott Consults: 09/16/19 Consult to Physician [CONS] Stat Comment: Consulting Provider: Ismael Dubon Reason For Exam: Physician to Consult Medical - DS: Meds - Discharge Medications Active and Home Medications: Home Medications cyanocobalamin (vitamin B-12) 2,000 mcg tablet,extended release 2,000 mcg PO QDAY 08/26/15 [History Confirmed 09/17/19 Last Taken 07/26/18] magnesium oxide 400 mg PO DAILY cap 08/26/15 [History Confirmed 09/17/19 Last Taken 07/26/18] cholecalciferol (vitamin D3) 10,000 unit capsule 10,000 unit PO QDAY #1 cap 09/20/15 [Rx Confirmed 09/17/19 Last Taken 07/26/18] thiamine HCl (vitamin B1) 100 mg tablet 100 mg PO QDAY 06/05/17 [History Confirmed 09/17/19 Last Taken 07/26/18] apixaban 5 mg tablet 5 mg PO BID 90 Days #180 tab 04/30/18 [Rx Confirmed 09/17/19 Last Taken 07/26/18] allopurinol 100 mg tablet 200 mg PO QDAY #180 tab 12/17/18 [Rx Confirmed 09/17/19 Last Taken Unknown] metoprolol tartrate 50 mg tablet 50 mg PO BID #180 tab 12/17/18 [Rx Confirmed 09/17/19 Last Taken Unknown] amiodarone 200 mg tablet 200 mg PO QDAY #90 tab 04/23/19 [Rx Confirmed 09/17/19 Last Taken Unknown] sertraline 100 mg tablet 200 mg PO QDAY #60 tab 04/30/19 [Rx Confirmed 09/17/19 Last Taken Unknown] simvastatin 40 mg tablet 40 mg PO QAM #90 tab 07/16/19 [Rx Confirmed 09/17/19 Last Taken Unknown] furosemide 40 mg tablet 40 mg PO BID #180 tab 09/03/19 [Rx Confirmed 09/17/19 Last Taken 09/16/19 15:00] Gabapentin [Neurontin] 300 mg PO BID 09/17/19 [History Confirmed 09/17/19 Last Taken Unknown] Medical - DS: Hosp Hospital Course: Mr. Bliss is a 54 year old M Who presents to the hospital for cough and congestion shortness of breath. Patient states about 4 days ago he developed flulike symptoms with headache body aches a cough productive of white sputum. He is complained of fevers and chills. He also has a pleuritic chest pain. Complained of shortness of breath. He had a poor sleep past few nights because of coughing. In the ED he seemed to build to maintain his saturations but did have a mild tachycardia leukopenia and elevated lactate. Procalcitonin was negative. Flu screen was negative. Chest x-ray shows no infiltrates on the right. Denies any weight gain or increased edema in his legs. 09/17 Coughing still. Has some shortness of breath but is slowly improving. States the DuoNeb treatment helped. Overall feeling a little better. Poor sleep. Did have some diarrhea this morning. [place] a little chilled this morning 09/18 still "feels bad but better". cough nonproductive, dyspnea when walking to bathroom. COOK. Discharge diagnosis: Viral pneumonia with bronchospasm lactic acidosis Sirs costochondritis leuk Secondary discharge diagnosis: [place] thrombocytopenia A. fib hypertension obesity obstructive sleep apnea depression COPD chronic kidney disease anemia depression - Time Spent with Patient Total time spent providing and/or coordinating discharge services: Greater than 30 minutes Medical - DS: Exam - Constitutional Vitals: Vital Signs Temp Pulse Pulse Resp BP Pulse Ox 09/18/19 18:36 97.4 F 97 H 22 143/92 94 09/18/19 16:00 100.5 F H 20 145/81 94 09/18/19 14:00 20 94 09/18/19 13:16 92 H 20 95 09/18/19 12:54 92 H 20 09/18/19 12:00 100.5 F H 20 166/108 93 09/18/19 08:00 100 F H 102 H 24 H 148/95 94 09/18/19 07:48 106 H 16 90 09/18/19 04:26 149/88 09/18/19 04:00 99.3 F H 22 154/89 96 09/18/19 01:00 90 95 09/17/19 23:10 98.4 F 84 22 156/94 95 09/17/19 20:17 95 H 95 09/17/19 20:00 97.2 F 92 H 22 136/81 95 Intake and Output 09/18/19 09/18/19 09/18/19 05:59 13:59 21:59 Intake Total 650 340 960 Output Total 300 1650 2175 Balance 350 -1542 -0567 Intake: IV 100 Rocephin 2 gm In Dextrose 5% in 50 Water 50 ml @ 100 mls/hr IV Q24H [facility] Rx#:[id number] Oral 650 240 960 Output: Void Amount 300 1650 2175 Other: Meal Breakfast Dinner Percent of Meal Consumed 50% 100% Feeding Ability Independent Independent Urine Appearance Clear Clear Clear Urine Color Dark Yellow Pale Pale Straw Urine Odor Normal Normal Stool Size Small Stool Color Brown Stool Consistency Formed # Bowel Movements 1 # of times incontinent of 0 Bowels Weight 153.087 kg 152.135 kg Patient Weight 09/19/19 05:59 Weight 152.135 kg Medical - DS: Data Labs on day of discharge: Labs from last 24 hours 09/18/19 09/18/19 04:10 04:10 WBC 3.2 L RBC 3.60 L Hgb 11.1 L Hct 34.1 L MCV 94.6 MCH 30.8 MCHC 32.6 RDW 18.1 H Plt Count 111 L MPV 7.6 Gran % 85.1 H Lymph % (Auto) 8.4 L [place] % (Auto) 6.1 Eos % (Auto) 0.2 Baso % (Auto) 0.2 Gran # 2.7 Lymph # (Auto) 0.3 L [place] # (Auto) 0.2 Eos # (Auto) 0 Baso # (Auto) 0 Sodium 133 Potassium 3.1 L Chloride 93 L Carbon Dioxide 27 Anion Gap 13.0 BUN 8 Creatinine 1.0 GFR Calculation 84 Glucose 111 H Uric Acid 4.7 Calcium 8.6 Phosphorus 1.7 L Magnesium 1.6 Total Bilirubin 0.4 Direct Bilirubin < 0.2 GGT 33 AST 45 H ALT 22 Alkaline Phosphatase 88 Lactate Dehydrogenase 243 Total Protein 6.3 Albumin 3.6 Globulin 2.7 Albumin/Globulin Ratio 1.3 Triglycerides 58 Preliminary micro results at discharge 09/17/19 19:50 Sputum Culture - Preliminary Sputum - Induced 09/16/19 19:52 Blood Culture - Preliminary Blood 09/16/19 20:00 Blood Culture - Preliminary Blood Medical - DS: A/P - Patient/Caregiver Discharge Instructions Activity: increase activity as tolerated Diet: Cardiac - Follow up Plan Follow up with: Evin Elliott DO [Primary Care Provider] - Disposition: Home, Self-Care Prognosis: Fair Rehab Potential: Fair Overall status at discharge: patient is progressing back to baseline
[2019-09-19] MEDS: IPRATROPIUM/ALBUTEROL 3 ML AMPUL.NEB NEB SCH ×2 (01:23→07:17)
[2019-09-19] MEDS: METOPROLOL TARTRATE 5 MG/5 ML VIAL IV PRN ×3 (04:09→16:14)
[2019-09-19] MEDS: AMIODARONE HCL 200 MG TABLET PO SCH ×2 (04:27→07:14)
[2019-09-19] MEDS: BENZONATATE 100 MG CAPSULE PO PRN ×2 (05:02→13:26)
[2019-09-19] MEDS ORDERED: DILTIAZEM 125 MG/25 ML VIAL IV ONE (05:56)
[2019-09-19] MEDS ORDERED: DILTIAZEM 125 MG in DEXTROSE 5% IN WATER 100 ML IV SCH (06:00)
[2019-09-19] MEDS: 0.9 % SODIUM CHLORIDE 10 ML SYRINGE IV SCH ×3 (06:30→21:15)
[2019-09-19] MEDS: 0.9 % SODIUM CHLORIDE 250 ML IV SCH ×2 (06:30→18:25)
[2019-09-19 06:33] LABS: Basophils # (Auto) 0 K/mcL (0.0-0.3); Basophils % (Auto) 0 % (0.0-2.0); Eosinophils # (Auto) 0 K/mcL (0.0-0.7); Eosinophils % (Auto) 0 % (0.0-7.0); Hematocrit 35.2 % (41.0-55.0); Hemoglobin 11.6 g/dL (13.5-16.5); Lymphocytes # (Auto) 0.3 K/mcL (1.5-4.8); Lymphocytes % (Auto) 8.4 % (15.5-49.0); Mean Cell Volume 94.8 fL (80.0-100.0); Mean Corpuscular HGB Conc 32.9 g/dL (31.0-36.0); Mean Platelet Volume 7.8 fL (7.4-10.4); Monocytes # (Auto) 0.3 K/mcL (0.1-0.9); Monocytes % (Auto) 7.6 % (1.0-12.0); Platelet Count 108 K/mcL (140-440); RBC 3.72 M/mcL (4.50-5.90); Red Cell Distribution Width 18.4 % (11.5-14.5)
--- NOTE | 2019-09-19 06:40 | Internal Med Progress Note ---
Medical - PN: Subj Patient information: Note initiated : 09/19/19 at 6:35 am Service Date, if different from initiated Date: [] Patient: Gunner Bliss a 54 y/o M admitted on 09/16/19 for SOB/weakness. Chief Complaint: [] Interval history: Mr. Bliss is a 54 year old M Who presents to the hospital for cough and congestion shortness of breath. Patient states about 4 days ago he developed flulike symptoms with headache body aches a cough productive of white sputum. He is complained of fevers and chills. He also has a pleuritic chest pain. Complained of shortness of breath. He had a poor sleep past few nights because of coughing. In the ED he seemed to build to maintain his saturations but did have a mild t achycardia leukopenia and elevated lactate. Procalcitonin was negative. Flu screen was negative. Chest x-ray shows no infiltrates on the right. Denies any weight gain or increased edema in his legs. 09/17 Coughing still. Has some shortness of breath but is slowly improving. States the DuoNeb treatment helped. Overall feeling a little better. Poor sleep. Did have some diarrhea this morning. [place] a little chilled this morning 09/18 still "feels bad but better". cough nonproductive, dyspnea when walking to bathroom. COOK. 09/19 Patient still has cough productive of solorio sputum. And shortness of breath. Has headache and is sweaty on occasion. This morning when in A. fib RVR between rates of 140-160. IV Lopressor given without result patient put on diltiazem drip. Oxygen need increased during episode. Review of Systems: denies fever/nausea/vomiting/chest or abdominal pain/diarrhea. Otherwise see above. - Constitutional Vitals: Vital Signs Temp Pulse Resp BP Pulse Ox 100.4 F H 90 20 156/94 93 09/18/19 23:30 09/18/19 23:30 09/18/19 23:30 09/18/19 23:30 09/18/19 23:30 Period Temp Pulse Resp BP Sys/Bunch Pulse Ox Last 24 Hr 97.4 F-100.5 F 90-109 16-24 143-166/81-108 90-95 Intake and Output 09/18/19 09/19/19 09/19/19 21:59 05:59 13:59 Intake Total 1160 Output Total 2675 325 Balance -1515 -325 Weight 152.135 kg Intake & Output: Intake & Output 09/18/19 09/19/19 09/19/19 21:59 05:59 13:59 Intake Total 1160 Output Total 2675 325 Balance -1515 -325 Weight 152.135 kg Intake: Oral 1160 Output: Void Amount 2675 325 Other: Meal snack Percent of Meal Consumed 50% Feeding Ability Independent Urine Appearance Clear Clear Urine Color Straw Dark Yellow Urine Odor Strong Normal Stool Size Moderate Stool Color Green Stool Consistency Soft Loose # Bowel Movements 1 # of times incontinent of 1 Bowels Exam: General: Alert, Awake, No acute Distress, obese Eyes/N/T: EOMI, Head/Neck: neck supple, CV: tachy and irregular, No murmurs, Pulm: b/l wheezing/rhonchi Abd: soft, nontender, +BS x4 Ext: no clubbing/cyanosis, b/l LE trace edema - improved Neuro: Alert, no focal deficits, moves all extremities, Skin: warm/dry Medical - PN: Obj Da - Labs CBC & Chem 7: 09/19/19 04:10 09/19/19 04:10 Labs: Abnormal Lab Results 09/19/19 09/18/19 09/18/19 04:10 04:10 04:10 WBC 4.0 L 3.2 L RBC 3.72 L 3.60 L Hgb 11.6 L 11.1 L Hct 35.2 L 34.1 L RDW 18.4 H 18.1 H Plt Count 108 L 111 L MPV Gran % 84.0 H 85.1 H Lymph % (Auto) 8.4 L 8.4 L Lymph # (Auto) 0.3 L 0.3 L Seg Neutrophils % Lymphocytes % Nucleated RBCs Platelet Estimate RBC Morphology Polychromasia Anisocytosis VBG Lactic Acid Potassium 3.1 L Chloride 93 L Carbon Dioxide Anion Gap Glucose 111 H Calcium Phosphorus 1.7 L Magnesium AST 45 H Lactate Dehydrogenase Urine Protein Urine Ketones Urine Occult Blood 09/17/19 09/17/19 09/16/19 04:10 02:15 19:00 WBC 3.0 L RBC 3.36 L Hgb 10.5 L Hct 31.5 L RDW 17.8 H Plt Count 115 L MPV 7.2 L Gran % Lymph % (Auto) Lymph # (Auto) Seg Neutrophils % 80 H Lymphocytes % 11 L Nucleated RBCs Platelet Estimate Decreased A RBC Morphology Abnorm A Polychromasia Anisocytosis 1+ A VBG Lactic Acid Potassium Chloride Carbon Dioxide 19 L Anion Gap 20.0 H Glucose Calcium 8.5 L Phosphorus 2.3 L Magnesium 1.3 L AST 72 H Lactate Dehydrogenase 261 H Urine Protein 100 A Urine Ketones 20 A Urine Occult Blood 0.03 A 09/16/19 09/16/19 09/16/19 19:00 19:00 19:00 WBC RBC Hgb Hct RDW Plt Count MPV Gran % Lymph % (Auto) Lymph # (Auto) Seg Neutrophils % 81 H Lymphocytes % 10 L Nucleated RBCs 1 H Platelet Estimate Decreased A RBC Morphology Abnorm A Polychromasia 1+ A Anisocytosis 1+ A VBG Lactic Acid 3.7 H Potassium Chloride Carbon Dioxide 19 L Anion Gap 20.0 H Glucose Calcium 8.5 L Phosphorus Magnesium AST 72 H Lactate Dehydrogenase Urine Protein Urine Ketones Urine Occult Blood 09/16/19 19:00 WBC 3.2 L RBC 3.77 L Hgb 11.6 L Hct 35.3 L RDW 18.3 H Plt Count 130 L MPV 7.0 L Gran % 80.6 H Lymph % (Auto) 10.3 L Lymph # (Auto) 0.3 L Seg Neutrophils % Lymphocytes % Nucleated RBCs Platelet Estimate RBC Morphology Polychromasia Anisocytosis VBG Lactic Acid Potassium Chloride Carbon Dioxide Anion Gap Glucose Calcium Phosphorus Magnesium AST Lactate Dehydrogenase Urine Protein Urine Ketones Urine Occult Blood Meds: Medications Acetaminophen (Tylenol) 650 mg PO Q6HP PRN PRN Reason: PAIN/FEVER > 101 Last Admin: 09/18/19 01:18 Dose: 650 mg Documented by: Hydrocodone Bitart/Acetaminophen ([place] 5/325mg) 1 tab PO Q4-6HP PRN; Protocol PRN Reason: Per Pain Protocol Last Admin: 09/18/19 10:22 Dose: 1 tab Documented by: Albuterol/Ipratropium (Duoneb) 3 ml NEB Q6HRT [facility] Last Admin: 09/19/19 01:23 Dose: 3 ml Documented by: Albuterol/Ipratropium (Duoneb) 3 ml NEB Q4HP PRN PRN Reason: Shortness Of Breath Allopurinol (Zyloprim) 200 mg PO QDAY [facility] Last Admin: 09/18/19 10:23 Dose: 200 mg Documented by: Amiodarone HCl (Cordarone) 200 mg PO QDAY [facility] Last Admin: 09/19/19 04:27 Dose: 200 mg Documented by: Apixaban (Eliquis) 5 mg PO BID [facility] Last Admin: 09/18/19 20:57 Dose: 5 mg Documented by: Benzonatate (Tessalon) 200 mg PO TIDP PRN PRN Reason: Cough Last Admin: 09/19/19 05:02 Dose: 200 mg Documented by: Chlordiazepoxide HCl (Librium) 25 mg PO Q4HP PRN PRN Reason: Alcohol Withdrawal Doxycycline Hyclate (Doxycycline Hyclate) 100 mg PO BID [facility]; Protocol Last Admin: 09/18/19 20:57 Dose: 100 mg Documented by: Furosemide (Lasix) 40 mg PO BID@0900,1500 [facility] Last Admin: 09/18/19 15:00 Dose: 40 mg Documented by: Gabapentin (Neurontin) 300 mg PO TID [facility] Last Admin: 09/18/19 22:07 Dose: 300 mg Documented by: Potassium Chloride 40 meq/ (Dextrose) 520 mls @ 130 mls/hr IV UD PRN PRN Reason: Potassium < 3 Magnesium Sulfate (Magnesium Sulfate) 2 gm in 50 mls @ 50 mls/hr IV UD PRN PRN Reason: Magnesium </= 1.6 Last Infusion: 09/18/19 11:06 Dose: Infused Documented by: Diltiazem HCl 125 mg/ Dextrose 125 mls @ 5 mls/hr IV Q12H [facility]; Protocol Sodium Chloride (Sodium Chloride 0.9%) 250 mls @ 20 mls/hr IV .[id number] [facility] Last Admin: 09/19/19 06:30 Dose: 20 mls/hr Documented by: Labetalol HCl (Trandate) 0 mg IV Q2HP PRN PRN Reason: Hypertension Last Admin: 09/18/19 04:16 Dose: 10 mg Documented by: Lactobacillus Rhamnosus (Culturelle) 1 cap PO BID [facility] Last Admin: 09/18/19 20:57 Dose: 1 cap Documented by: Lorazepam (Ativan) 0 mg IV Q4HP PRN; Protocol PRN Reason: Alcohol Withdrawal Melatonin (Melatonin 3mg Tablet) 3 mg PO HSP PRN PRN Reason: Insomnia Last Admin: 09/17/19 20:29 Dose: 3 mg Documented by: Metoprolol Tartrate (Lopressor) 50 mg PO BID [facility] Last Admin: 09/18/19 20:57 Dose: 50 mg Documented by: Metoprolol Tartrate (Lopressor) 5 mg IV Q2HP PRN PRN Reason: Tachyarrhythmias HR>110 Last Admin: 09/19/19 05:39 Dose: 5 mg Documented by: Mupirocin (Bactroban Oint 2%) 1 dose TOPICAL BID [facility] Last Admin: 09/18/19 22:07 Dose: 1 dose Documented by: Ondansetron HCl (Zofran) 4 mg IV Q4HP PRN PRN Reason: Nausea And Vomiting Polyethylene Glycol (Miralax) 17 gm PO DAILYP PRN PRN Reason: Constipation Potassium Chloride (Kdur) 40 meq PO UD PRN PRN Reason: Potssium is 3-3.5 Last Admin: 09/18/19 10:22 Dose: 40 meq Documented by: Potassium Chloride (Kdur) 40 meq PO UD PRN PRN Reason: Potassium < 3 Potassium Chloride (Klor-Con) 20 meq PO BID [facility] Last Admin: 09/18/19 20:57 Dose: 20 meq Documented by: Senna (Senokot) 2 tab PO DAILYP PRN PRN Reason: Constipation Sertraline HCl (Zoloft) 200 mg PO QDAY [facility] Last Admin: 09/18/19 10:53 Dose: 200 mg Documented by: Simvastatin (Zocor) 40 mg PO QAM [facility] Last Admin: 09/18/19 10:53 Dose: 40 mg Documented by: Sodium Chloride (Saline Flush) 10 ml IV Q8 [facility] Last Admin: 09/19/19 06:30 Dose: 10 ml Documented by: Thiamine HCl (Vitamin B1) 100 mg PO DAILY [facility] Last Admin: 09/18/19 10:22 Dose: 100 mg Documented by: Medical - PN: A/P - Time Spent With Patient Total time spent is greater than 50% in coordination of care (as documented) at patient's floor/unit and/or counseling patient: - Narrative A/P Narrative: A: *Pneumonia: likely viral (Human Metapneumovirus +) vs Bacterial -MRSA screen (+), Strep Ur Ag neg, PCT/CRP neg *AECOPD (not on home O2): *Lactic acidosis: resolved *SIRS: improving *Costochondritis: *Leukopenia: 2/2 above, stable *Thrombocytopenia: 2/2 above, stable *Afib RVR: On amiodarone and Lopressor and Eliquis. -follows with Dr. Kenney *h/o CVA: *HTN/HLD: *Obesity: *SILVIA intolerant to CPAP: *Depression: *CKD: *Anemia, chronic: *Depression: *Hypomag/phos/braden: P: -wean off dilt gtt, -cont sharon Amio/BB -myco pending -Doxycycline; pending BC/SC -CT chest -steroids(wean) -Switch albuterol to Xopenex, IS/Acapella -electrolyte replacement -CIWA -pt/ot -ppx: home eliquis
[2019-09-19 07:00] LABS: ALT/SGPT 19 U/l (0-40); AST/SGOT 39 U/l (0-37); Albumin 3.7 gm/dL (3.2-5.2); Albumin/Globulin Ratio 1.3 (1.0-2.3); Alkaline Phosphatase 82 U/L (39-117); Bilirubin,Direct < 0.2 mg/dL (0.0-0.3); Bilirubin,Total 0.5 mg/dL (0.0-1.0); Blood Urea Nitrogen 10 mg/dl (6-20); Calcium 8.9 mg/dl (8.6-10.4); Carbon Dioxide 29 mmol/L (22-30); Globulin 2.8 gm/dL (2.2-3.7); Glomerular Filtration Rate 84; Glucose 101 mg/dL (70-105); Lactate Dehydrogenase 293 U/L (94-250); Triglycerides 76 mg/dl (<150); Uric Acid 4.2 mg/dL (2.5-8.0)
[2019-09-19 07:12] LABS: Chloride 88 mmol/L (96-108)
[2019-09-19] MEDS ORDERED: POTASSIUM CHLORIDE 40 MEQ in DEXTROSE 5% IN WATER 500 ML IV ONE (07:36)
[2019-09-19] MEDS ORDERED: POTASSIUM CHLORIDE 20 MEQ TABLET PO ONE (07:36)
[2019-09-19] MEDS ORDERED: MAGNESIUM SULFATE 2 GM/50 ML BAG IV ONE (07:36)
[2019-09-19] MEDS: MAGNESIUM SULFATE 2 GM/50 ML BAG IV PRN (08:00)
[2019-09-19] MEDS ORDERED: AMIODARONE 150 MG in DEXTROSE 5% IN WATER 50 ML IV ONE (08:33)
[2019-09-19] MEDS ORDERED: LEVALBUTEROL 1.25 MG/3 ML AMPUL.NEB NEB PRN (08:39)
[2019-09-19] MEDS ORDERED: IPRATROPIUM 2.5 ML AMPUL.NEB NEB PRN (08:40)
[2019-09-19] MEDS: MUPIROCIN OINT 2% 22GM TOPICAL SCH ×2 (09:12→21:14)
[2019-09-19] MEDS: IPRATROPIUM 2.5 ML AMPUL.NEB NEB SCH ×2 (09:21→17:07)
[2019-09-19] MEDS: LEVALBUTEROL 1.25 MG/3 ML AMPUL.NEB NEB SCH ×2 (09:21→17:07)
[2019-09-19] MEDS: NEUTRA PHOS 1 PACKET PO SCH ×3 (09:37→21:15)
[2019-09-19] MEDS: ALLOPURINOL 100 MG TABLET PO SCH (09:37)
[2019-09-19] MEDS: POTASSIUM CHLORIDE 20 MEQ PACKET PO SCH ×2 (09:37→21:15)
[2019-09-19] MEDS: DOXYCYCLINE HYCLATE 100 MG TABLET.ORL PO SCH ×2 (09:38→21:15)
[2019-09-19] MEDS: GABAPENTIN 300 MG CAPSULE PO SCH ×3 (09:38→21:14)
[2019-09-19] MEDS: FUROSEMIDE 40 MG TABLET PO SCH ×2 (09:38→16:14)
[2019-09-19] MEDS: HYDROcodone/APAP 5/325MG TABLET PO PRN ×2 (09:38→16:14)
[2019-09-19] MEDS: THIAMINE 100 MG TABLET PO SCH (09:38)
[2019-09-19] MEDS: SERTRALINE 100 MG TABLET PO SCH (09:44)
[2019-09-19] MEDS: SIMVASTATIN 40 MG TABLET PO SCH (09:44)
[2019-09-19] MEDS: LACTOBACILLUS 1 CAPSULE PO SCH ×2 (09:44→21:14)
[2019-09-19] MEDS: METOPROLOL TARTRATE 50 MG TABLET PO SCH ×2 (09:44→21:14)
[2019-09-19] MEDS: APIXABAN 5 MG TABLET PO SCH ×2 (09:44→21:14)
--- NOTE | 2019-09-19 11:24 | Cat Scan Report ---
History: Pneumonia and hypoxia TECHNIQUE: The chest was imaged without contrast at 2.5 mm intervals. Sagittal, coronal and axial MIPS images were created. The radiation exposure was limited using dose reduction technology. FINDINGS: Patient has severe widespread pneumonia throughout the right lung. There is involvement in the right upper, right middle and right lower lobes. The greatest consolidation is essentially in the right upper lobe. There is a tiny right-sided pleural effusion. There is focal area of moderate consolidation in the superior segment left lower lobe with a smaller infiltrate in the posterior basal segment left lower lobe. There is sparing of the lingula and left upper lobe. No lung abscess is present. There are a few reactive lymph nodes in right hilum and mediastinum. The heart size is normal. The aorta is normal in caliber. Small low-attenuation structure seen high in the left lobe of liver. This is probably a small cyst. It measures approximately 1 cm in size. IMPRESSION: Severe pneumonia throughout the right lung with mild to moderate pneumonia in the left lower lobe Interpreted and Authenticated by: Dylon Vargas 09/19/19
[2019-09-19] MEDS: DILTIAZEM 125 MG in DEXTROSE 5% IN WATER 100 ML IV SCH ×2 (12:43→20:52)
[2019-09-19] MEDS: methylPREDNISolone SOD SUCC 40 MG/ML VIAL IV SCH ×2 (13:21→21:14)
[2019-09-19] MEDS: LABETALOL 5 MG/ML ML IV PRN (20:03)
[2019-09-19] MEDS: MELATONIN 3 MG TABLET PO PRN (21:14)
[2019-09-19] MEDS ORDERED: SUCCINYLCHOLINE 20 MG/ML ML IV ONE (22:00)
[2019-09-19] MEDS ORDERED: MIDAZOLAM 5 MG/5 ML VIAL IV ONE (22:00)
[2019-09-20] MEDS ORDERED: IPRATROPIUM 2.5 ML AMPUL.NEB ONE (01:18)
[2019-09-20] MEDS ORDERED: LEVALBUTEROL 1.25 MG/3 ML AMPUL.NEB ONE (01:18)
[2019-09-20] MEDS: IPRATROPIUM 2.5 ML AMPUL.NEB NEB SCH ×3 (01:19→17:12)
[2019-09-20] MEDS: LEVALBUTEROL 1.25 MG/3 ML AMPUL.NEB NEB SCH ×3 (01:19→17:12)
[2019-09-20] MEDS ORDERED: QUEtiapine 25 MG TABLET ONE (02:09)
[2019-09-20] MEDS ORDERED: QUEtiapine 25 MG TABLET PO ONE (02:16)
[2019-09-20] MEDS ORDERED: OLANZapine 10 MG VIAL IM ONE ×3 (02:20→07:19)
[2019-09-20] MEDS ORDERED: OLANZapine 10 MG VIAL IM SCH (02:30)
[2019-09-20] MEDS ORDERED: DEXMEDETOMIDINE 100 ML IV ONE (03:52)
[2019-09-20] MEDS ORDERED: KETAMINE 10 MG/ML ML ONE (04:37)
[2019-09-20] MEDS ORDERED: KETAMINE 100 MG/ML ML IV ONE ×2 (04:39→05:47)
[2019-09-20] MEDS ORDERED: 0.9 % SODIUM CHLORIDE 1,000 ML IV ONE ×2 (04:45→06:30)
[2019-09-20] MEDS ORDERED: PROPOFOL 100 ML IV ONE ×6 (05:20→23:10)
[2019-09-20] MEDS ORDERED: MIDAZOLAM PF 50 MG in 0.9 % SODIUM CHLORIDE 90 ML IV SCH (05:30)
[2019-09-20] MEDS ORDERED: PROPOFOL 1,000 MG in PREMIX 1 BAG IV SCH (05:30)
--- NOTE | 2019-09-20 05:44 | Emergency Department Note ---
ED Note Addendum Note Addendum: 54-year-old gentleman was acting very agitated and delirious. They were having difficulty sedating him and he was requiring quite a bit of oxygen. He was initially given some Precedex without success and Dr. Cunningham felt that in order to take care of him from a respiratory standpoint he would need intubation. He does have human metapneumovirus with an ominous looking chest x-ray. I was consulted to intubate. He was first given 2 mg of Versed and then 125 mg of succinylcholine. I intubated him with a glide scope on the first attempt-using 7-1/2 cuffed tube. Tube was secured and x-ray was taken. This was confirmed by auscultation and colorimetry. X-ray did not show tube well, it was too high. The tube was advanced. NG tube was initially attempted to be placed through the mouth but there was too much resistance. Nursing staff placed NG tube through the nose. X-ray was repeated and showed good placement of the NG and ET tube. RT connected ventilator Patient did wake up some and had to be re-sedated with a dose of ketamine 50 mg. Propofol bolus and then drip was done after that. He did have some bleeding from the nose and after suctioning some gauze was packed in. He was suctioned several times Care was turned over to Dr. Cunningham after intubation
--- NOTE | 2019-09-20 05:46 | Critical Care Progress Note ---
Critical Care Note - Narrative Summary: Progress Note initiated : 09/20/19 at 5:44 am Service Date, if different from initiated Date: [] Patient: Gunner Bliss 54 y/o M admitted on 09/16/19 for SOB/weakness. Chief Complaint: Follow-up pneumonia S/ Little after midnight, the patient developed agitation. He pulled out his IVs. He began to experience hallucinations. He was on the CIWA protocol received lorazepam, which seemed to worsen his symptoms. He received a dose of Seroquel orally, however continued to have worsening behavior. He received Zyprexa IM x2. He required restraints for safety. Eventually Police Department was called for security and senior logistics manager were on scene as well to help manage the patient's behavior. In spite of the above therapies, the patient continued to experience worsening agitation and hallucinations and delirium. He was started on Precedex infusion without significant effect, which was stopped after 30 minutes due to the development of hypotension. Ketamine was considered, however patient's blood pressure was on the low side at that time. During this, Ambriz catheter was placed with about 300 mils of urine return, ruling out significant bladder discomfort as a cause of agitation. Blood gas showed no hypercarbia, did show hypoxia which was pre-existing. There are no apparent new complaints of pain prior to this onset. Due to worsening clinical status, decision was made to intubate. Dr. Hendrickson from the emergency department performed the intubation using glide scope. Patient received 2 mg of Versed with some sedative effect, post intubation required 2 mg further Versed prior to sedation via infusion. O/ Vital Signs Temperature 97.1 F 09/16/19 17:37 Pulse Rate 11 L 09/16/19 17:37 Respiratory Rate 22 09/16/19 17:37 Blood Pressure 171/82 09/16/19 17:37 Pulse Oximetry (%) 94 09/16/19 17:37 Temperature 98.2 F 09/19/19 23:40 Pulse Rate 111 H 09/19/19 17:20 Respiratory Rate 25 H 09/19/19 23:40 Blood Pressure 138/83 09/19/19 23:40 Pulse Oximetry (%) 94 09/19/19 23:33 General: Agitated, calling out and yelling. Chest: Post intubation, bilateral breath sounds Cardiovascular: Distant, irregular Abdomen: Soft Extremities: Warm, perfused Neuro: Moves all extremities equally, hallucinations noted by nursing, calling out. Laboratory Results - last 24 hr 09/19/19 09/19/19 04:10 04:10 WBC 4.0 L RBC 3.72 L Hgb 11.6 L Hct 35.2 L MCV 94.8 MCH 31.2 MCHC 32.9 RDW 18.4 H Plt Count 108 L MPV 7.8 Gran % 84.0 H Lymph % (Auto) 8.4 L [place] % (Auto) 7.6 Eos % (Auto) 0 Baso % (Auto) 0 Gran # 3.4 Lymph # (Auto) 0.3 L [place] # (Auto) 0.3 Eos # (Auto) 0 Baso # (Auto) 0 Sodium 134 Potassium 2.8 L* Chloride 88 L Carbon Dioxide 29 Anion Gap 17.0 H BUN 10 Creatinine 1.0 GFR Calculation 84 Glucose 101 Uric Acid 4.2 Calcium 8.9 Phosphorus 2.0 L Magnesium 1.5 L Total Bilirubin 0.5 Direct Bilirubin < 0.2 GGT 34 AST 39 H ALT 19 Alkaline Phosphatase 82 Lactate Dehydrogenase 293 H Total Protein 6.5 Albumin 3.7 Globulin 2.8 Albumin/Globulin Ratio 1.[address] of chest 09/19 IMPRESSION: Severe pneumonia throughout the right lung with mild to moderate pneumonia in the left lower lobe A/P Delirium, agitation. This began a little over 72 hours after admission. It is noted that he does have 3 to 4 glasses of wine an evening, this event is possibly secondary to withdrawal. Delirium secondary to progressive pneumonia also possible, though without significant hypercapnia and hypoxia is compensated. Medications from home reviewed, no apparent medications are missing that could be causing a withdrawal syndrome. New CVA a possibility, th ough the patient is therapeutic on Eliquis for stroke prophylaxis from atrial fibrillation. -Sedation, ventilation -Daily wake-up trials and reassessment Continue CIWA protocol Pneumonia. CT yesterday shows extensive bilateral infiltrates. Is positive for human metapneumovirus. Continue supportive care, doxycycline (for atypical coverage as cause of pneumonia) Follow-up mycoplasma serology COPD with acute exacerbation and acute hypoxic respiratory failure. Is requiring supplemental oxygen to maintain oxygen saturations. Wean oxygen to goal saturation 92 to 96% Continue with Solu-Medrol, bronchodilators Leukopenia, thrombocytopenia, suspected secondary to viral infection Monitor Atrial fibrillation. A. fib with RVR, currently on diltiazem drip. On Eliquis at baseline as well as amiodarone. Follows with Dr. Kenney. Continue diltiazem for rate control with acute illness Changed to Xopenex as bronchodilator Costochondritis h/o CVA HTN/HLD: Continue home regimen Obesity SILVIA intolerant to CPAP Depression: Continue home medications CKD: Monitor, avoid nephrotoxins Anemia, chronic: Monitor Depression: Continue home regimen Hypomag/phos/braden: Replete as needed PPx: home eliquis Was code activated?: No - CC Time CC total mins: 65 Critical care time: 30 - 74 mins
[2019-09-20] MEDS ORDERED: MAGNESIUM SULFATE 2 GM/50 ML BAG IV PRN (05:47)
[2019-09-20] MEDS ORDERED: POLYETHYLENE GLYCOL 3350 17 GM PACKET PO PRN (05:47)
[2019-09-20] MEDS ORDERED: ACETAMINOPHEN 325 MG TABLET PO PRN (05:47)
[2019-09-20] MEDS ORDERED: ONDANSETRON 4 MG/2 ML VIAL IV PRN (05:47)
[2019-09-20] MEDS ORDERED: SENNOSIDES 1 TABLET PO PRN (05:47)
[2019-09-20] MEDS ORDERED: BENZONATATE 100 MG CAPSULE PO PRN (05:47)
[2019-09-20] MEDS ORDERED: POTASSIUM CHLORIDE 20 MEQ TABLET PO PRN (05:47)
[2019-09-20] MEDS ORDERED: IPRATROPIUM 2.5 ML AMPUL.NEB NEB PRN (05:47)
[2019-09-20] MEDS ORDERED: MELATONIN 3 MG TABLET PO PRN (05:47)
[2019-09-20] MEDS ORDERED: LEVALBUTEROL 1.25 MG/3 ML AMPUL.NEB NEB PRN (05:47)
[2019-09-20] MEDS ORDERED: LORazepam 2 MG/ML VIAL IV PRN (05:47)
[2019-09-20] MEDS: 0.9 % SODIUM CHLORIDE 10 ML SYRINGE IV SCH ×3 (06:30→21:52)
[2019-09-20 06:31] LABS: Basophils # (Auto) 0 K/mcL (0.0-0.3); Basophils % (Auto) 0 % (0.0-2.0); Eosinophils # (Auto) 0 K/mcL (0.0-0.7); Eosinophils % (Auto) 0 % (0.0-7.0); Granulocytes % (Auto) 89.8 % (38.0-78.0); Hematocrit 37.1 % (41.0-55.0); Hemoglobin 12.1 g/dL (13.5-16.5); Lymphocytes # (Auto) 0.2 K/mcL (1.5-4.8); Lymphocytes % (Auto) 4.4 % (15.5-49.0); Mean Cell Volume 94.9 fL (80.0-100.0); Mean Corpuscular HGB Conc 32.5 g/dL (31.0-36.0); Mean Platelet Volume 7.8 fL (7.4-10.4); Monocytes # (Auto) 0.3 K/mcL (0.1-0.9); Monocytes % (Auto) 5.8 % (1.0-12.0); Platelet Count 108 K/mcL (140-440); RBC 3.91 M/mcL (4.50-5.90); Red Cell Distribution Width 18.1 % (11.5-14.5); WBC 5.3 K/mcL (4.5-11.0)
[2019-09-20] MEDS: 0.9 % SODIUM CHLORIDE 1,000 ML IV SCH ×3 (06:41→19:15)
[2019-09-20 06:47] LABS: ALT/SGPT 18 U/l (0-40); AST/SGOT 37 U/l (0-37); Albumin 3.5 gm/dL (3.2-5.2); Albumin/Globulin Ratio 1.2 (1.0-2.3); Alkaline Phosphatase 74 U/L (39-117); Bilirubin,Direct < 0.2 mg/dL (0.0-0.3); Bilirubin,Total 0.4 mg/dL (0.0-1.0); Blood Urea Nitrogen 25 mg/dl (6-20); Calcium 8.7 mg/dl (8.6-10.4); Carbon Dioxide 22 mmol/L (22-30); Chloride 93 mmol/L (96-108); Glomerular Filtration Rate 47; Glucose 150 mg/dL (70-105); Lactate Dehydrogenase 429 U/L (94-250); Phosphorous 5.4 mg/dL (2.7-4.5); Triglycerides 121 mg/dl (<150); Uric Acid 4.9 mg/dL (2.5-8.0)
[2019-09-20] MEDS: NOREPINEPHRINE BITARTRATE 16 MG in 0.9 % SODIUM CHLORIDE 234 ML IV SCH (07:45)
[2019-09-20] MEDS: PROPOFOL 1,000 MG in PREMIX 1 BAG IV SCH ×5 (08:30→23:15)
[2019-09-20] MEDS: methylPREDNISolone SOD SUCC 40 MG/ML VIAL IV SCH ×3 (09:00→21:52)
[2019-09-20] MEDS: MUPIROCIN OINT 2% 22GM TOPICAL SCH ×2 (09:00→21:51)
[2019-09-20] MEDS: DILTIAZEM 125 MG in DEXTROSE 5% IN WATER 100 ML IV SCH (09:08)
[2019-09-20] MEDS: 0.9 % SODIUM CHLORIDE 250 ML IV SCH ×4 (09:10→18:05)
--- NOTE | 2019-09-20 09:47 | XRay Report ---
HISTORY: Pneumonia and intubated FINDINGS: Endotracheal tube has been inserted. The tip is at the level of the head of the clavicles. There is a nasogastric tube passing through the esophagus into the stomach. The sidehole remains in the distal esophagus. There is severe pneumonia throughout the right lung with moderate volume loss resulting in elevation of the right diaphragm. Mild pneumonia is present centrally in the left lung and medially in the left upper lobe. The consolidation has become worse in both lungs since earlier CT scan done at 10:54 AM on the same date. The heart is mildly enlarged but magnified IMPRESSION: Endotracheal tube positioned relatively high, at the level of the clavicles. Worsening pneumonia in both lungs, right worse than left Interpreted and Authenticated by: Dylon Vargas 09/20/19
[2019-09-20] MEDS: MIDAZOLAM PF 50 MG in 0.9 % SODIUM CHLORIDE 90 ML IV SCH ×3 (11:35→21:13)
[2019-09-20] MEDS ORDERED: VANCOMYCIN PER PHARMACY IV SCH (11:38)
[2019-09-20] MEDS: PIPERACILLIN SODIUM/TAZOBACTAM 3.375 GM in DEXTROSE 5% IN WATER 50 ML IV SCH ×2 (12:00→18:00)
[2019-09-20] MEDS: METOPROLOL TARTRATE 50 MG TABLET PO SCH ×2 (12:17→21:38)
[2019-09-20] MEDS ORDERED: DILTIAZEM 125 MG in DEXTROSE 5% IN WATER 100 ML IV PRN (12:30)
[2019-09-20] MEDS: VANCOMYCIN 1,500 MG in 0.9 % SODIUM CHLORIDE 500 ML IV SCH ×2 (12:36→23:07)
[2019-09-20 13:01] LABS: Blood Urea Nitrogen 26 mg/dl (6-20); Calcium 8.5 mg/dl (8.6-10.4); Carbon Dioxide 22 mmol/L (22-30); Chloride 96 mmol/L (96-108); Glomerular Filtration Rate 61; Glucose 132 mg/dL (70-105)
[2019-09-20] MEDS: CHLORHEXIDINE GLUCONATE 1 ML ORAL.SOL SWABMOUTH SCH ×2 (14:27→21:50)
[2019-09-20] MEDS: DOXYCYCLINE HYCLATE 100 MG TABLET.ORL PO SCH ×2 (14:28→21:51)
[2019-09-20] MEDS: chlordiazePOXIDE 25 MG CAPSULE PO PRN (14:28)
[2019-09-20] MEDS: FUROSEMIDE 40 MG TABLET PO SCH ×2 (14:29→14:44)
[2019-09-20] MEDS: ALLOPURINOL 100 MG TABLET PO SCH (14:29)
[2019-09-20] MEDS: AMIODARONE HCL 200 MG TABLET PO SCH (14:29)
[2019-09-20] MEDS: GABAPENTIN 300 MG CAPSULE PO SCH ×3 (14:29→21:31)
[2019-09-20] MEDS: THIAMINE 100 MG TABLET PO SCH (14:29)
[2019-09-20] MEDS: POTASSIUM CHLORIDE 20 MEQ TABLET PO PRN (14:30)
[2019-09-20] MEDS: POTASSIUM CHLORIDE 20 MEQ PACKET PO SCH ×2 (14:33→21:51)
[2019-09-20] MEDS: SERTRALINE 100 MG TABLET PO SCH (14:42)
[2019-09-20] MEDS: LACTOBACILLUS 1 CAPSULE PO SCH ×2 (14:42→21:52)
[2019-09-20] MEDS: SIMVASTATIN 40 MG TABLET PO SCH (14:43)
[2019-09-20] MEDS: APIXABAN 5 MG TABLET PO SCH ×2 (14:43→21:52)
--- NOTE | 2019-09-20 15:22 | XRay Report ---
HISTORY: Repositioned endotracheal tube FINDINGS: the endotracheal tube has been advanced and is now well positioned, 4 cm above the antony. There are still severe diffuse infiltrates throughout the right lung with a moderate infiltrate in the left side. The infiltrates are unchanged from the prior exam. There is no pneumothorax or pleural effusion. The heart remains enlarged. IMPRESSION: Well-positioned support tubes. Bilateral pneumonia with no change Interpreted and Authenticated by: Dylno Vargas 09/20/19
[2019-09-20 17:10] LABS: Appearance,Urine TURBID; Bacteria,Urine 0 /hpf (0); Bilirubin,Urine NEG (NEG); Color,Urine YELLOW; Culture Indicated,Urine NO; Glucose,Urine (UA) NEGATIVE (NEG); Ketones,Urine 20 mg/dL (NEG); Leukocyte Esterase,Urine NEG /uL (NEG); Mucus,Urine FEW /hpf (0); Nitrate,Urine NEG (NEG); Protein,Urine 30 mg/dL (NEG); Specific Gravity,Urine 1.032 (1.000-1.035); Urine Blood 0.2 mg/dL (<0.03); Urine RBC 25 /hpf (0-1); Urine Squamous Epithelial Cell 0 /hpf (0-4); Urine WBC 0 /hpf (0-4); Urobilinogen,Urine NEG (NEG)
--- NOTE | 2019-09-20 18:19 | Internal Med Progress Note ---
Medical - PN: Subj Patient information: Note initiated : 09/20/19 at 6:17 pm Service Date, if different from initiated Date: [] Patient: Gunner Bliss a 54 y/o M admitted on 09/16/19 for SOB/weakness. Chief Complaint: f/u respiratory failure Interval history: 09/16 Mr. Bliss is a 54 year old M Who presents to the hospital for cough and congestion shortness of breath. Patient states about 4 days ago he developed flulike symptoms with headache body aches a cough productive of white sputum. He is complained of fevers and chills. He also has a pleuritic chest pain. Complained of shortness of breath. He had a poor sleep past few nights because of coughing. In the ED he seemed to build to maintain his saturations but did have a mild tachycardia leukopenia and elevated lactate. Procalcitonin was negative. Flu screen was negative. Chest x-ray shows no infiltrates on the right. Denies any weight gain or increased edema in his legs. 09/17 Coughing still. Has some shortness of breath but is slowly improving. States the DuoNeb treatment helped. Overall feeling a little better. Poor sleep. Did have some diarrhea this morning. [place] a little chilled this morning 09/18 still "feels bad but better". cough nonproductive, dyspnea when walking to bathroom. COOK. 09/19 Patient still has cough productive of solorio sputum. And shortness of breath. Has headache and is sweaty on occasion. This morning when in A. fib RVR between rates of 140-160. IV Lopressor given without result patient put on diltiazem drip. Oxygen need increased during episode. 09/20 Earlier on 09/20-Little after midnight, the patient developed agitation. He pulled out his IVs. He began to experience hallucinations. He was on the CIWA protocol received lorazepam, which seemed to worsen his symptoms. He received a dose of Seroquel orally, however continued to have worsening behavior. He received Zyprexa IM x2. He required restraints for safety. Eventually Police Department was called for security and book solicitor were on scene as well to help manage the patient's behavior. In spite of the above therapies, the patient continued to experience worsening agitation and hallucinations and delirium. He was started on Precedex infusion without significant effect, which was stopped after 30 minutes due to the development of hypotension. Ketamine was considered, however patient's blood pressure was on the low side at that time. During this, Ambriz catheter was placed with about 300 mils of urine return, ruling out significant bladder discomfort as a cause of agitation. Blood gas showed no hypercarbia, did show hypoxia which was pre-existing. There are no apparent new complaints of pain prior to this onset. Due to worsening clinical status, decision was made to intubate. Dr. Hendrickson from the emergency department performed the intubation using glide scope. Patient received 2 mg of Versed with some sedative effect, post intubation required 2 mg further Versed prior to sedation via infusion. Daytime course 09/20-when intubation, the patient required significant doses of propofol and Versed to maintain adequate sedation. Blood pressure rebounded following intubation, then decreased with sedation. Eventually required further boluses and subsequently initiation of norepinephrine via a peripheral line. Labs from post intubation showed acute kidney injury, which had improved by the afternoon. Urine output picked up with improvement in blood pressure. Antibiotic coverage expanded to include vancomycin and Zosyn, continuing doxycycline for atypical coverage given his extensive and worsening bilateral infiltrates. - Constitutional Vitals: Vital Signs Temp Pulse Resp BP Pulse Ox 97.5 F 87 18 91/69 91 09/20/19 17:31 09/20/19 17:18 09/20/19 17:18 09/20/19 18:02 09/20/19 18:02 Period Temp Pulse Resp BP Sys/Bunch Pulse Ox Last 24 Hr 97.0 F-98.2 F 87-108 14-36 66-202/37-164 85-100 Intake and Output 09/20/19 09/20/19 09/20/19 05:59 13:59 21:59 Intake Total 1114 2637 741 Output Total 476 049 1231 Balance 1014 1882 -339 Intake & Output: Intake & Output 09/20/19 09/20/19 09/20/19 05:59 13:59 21:59 Intake Total 1114 2637 741 Output Total 100 672 5838 Balance 1014 1882 -339 Intake: IV 1114 2637 741 Sodium Chloride 0.9% 1,000 ml @ 1000 2000 150 mls/hr IV .[id number] [facility] Rx#: [id number] Sodium Chloride 0.9% 250 ml @ 250 20 mls/hr IV .[id number] [facility] Rx#: [id number] Precedex 400 Mcg/100 ml 2 Dextrose 100 ml @ 0 mls/hr IV . [facility] Rx#:[id number] Cardizem 125 mg In Dextrose 5% 99 in Water 100 ml @ 5 MG/HR 5 mls /hr IV Q8H [facility] Rx#:[id number] Versed 50 mg In Sodium Chloride 100 100 0.9% 90 ml @ 0.02 MG/KG/HR 6. 007 mls/hr IV Q6H [facility] Rx#: [id number] Levophed 16 mg In Sodium 41 Chloride 0.9% 234 ml @ 10 MCG/ MIN 9.375 mls/hr IV Q24H [facility] Rx #:[id number] Zosyn 3.375 gm In Dextrose 5% 50 in Water 50 ml @ 100 mls/hr IV Q6H [facility] Rx#:[id number] Diprivan 100 ml @ 0 mls/hr IV . 13 87 [facility] Rx#:[id number] Diprivan 1,000 mg In Premix 1 100 100 Bag @ 5 MCG/KG/MIN 4.506 mls/hr IV .[id number] [facility] Rx#:[id number] Vancomycin 1,500 mg In Sodium 500 Chloride 0.9% 500 ml @ 333.3 mls/hr IV Q12H [facility] Rx#: [id number] Output: Urine Catheter Amount 755 1080 Void Amount 100 Other: Urine Appearance Clear Clear Uretheral (Ambriz) Clear Clear Urine Color Dark Yellow Bright Yellow Bright Yellow Uretheral (Ambriz) Dark Yellow Bright Yellow Urine Odor Normal Normal Uretheral (Ambriz) Normal Exam: General: Sedated and intubated HEENT: ET tube and NG tube in place Chest: Symmetric breath sounds Cardiovascular: Irregular pulse Abdomen: Soft Extremities: Warm Neuro: Sedated Medical - PN: Obj Da - Labs CBC & Chem 7: 09/20/19 05:55 09/20/19 11:56 Labs: Abnormal Lab Results 09/20/19 09/20/19 09/20/19 15:50 11:56 05:55 WBC RBC Hgb Hct RDW Plt Count Gran % Lymph % (Auto) Lymph # (Auto) Sodium 132 L Potassium Chloride 93 L Anion Gap 17.0 H BUN 26 H 25 H Creatinine 1.3 H 1.6 H Glucose 132 H 150 H Calcium 8.5 L Phosphorus 5.4 H Magnesium AST Lactate Dehydrogenase 429 H Urine Protein 30 A Urine Ketones 20 A Urine Occult Blood 0.2 A Urine RBC 25 H 09/20/19 09/19/19 09/19/19 05:55 04:10 04:10 WBC 4.0 L RBC 3.91 L 3.72 L Hgb 12.1 L 11.6 L Hct 37.1 L 35.2 L RDW 18.1 H 18.4 H Plt Count 108 L 108 L Gran % 89.8 H 84.0 H Lymph % (Auto) 4.4 L 8.4 L Lymph # (Auto) 0.2 L 0.3 L Sodium Potassium 2.8 L* Chloride 88 L Anion Gap 17.0 H BUN Creatinine Glucose Calcium Phosphorus 2.0 L Magnesium 1.5 L AST 39 H Lactate Dehydrogenase 293 H Urine Protein Urine Ketones Urine Occult Blood Urine RBC 09/18/19 09/18/19 04:10 04:10 WBC 3.2 L RBC 3.60 L Hgb 11.1 L Hct 34.1 L RDW 18.1 H Plt Count 111 L Gran % 85.1 H Lymph % (Auto) 8.4 L Lymph # (Auto) 0.3 L Sodium Potassium 3.1 L Chloride 93 L Anion Gap BUN Creatinine Glucose 111 H Calcium Phosphorus 1.7 L Magnesium AST 45 H Lactate Dehydrogenase Urine Protein Urine Ketones Urine Occult Blood Urine RBC Microbiology 09/16/19 19:52 Blood Culture - Preliminary Blood 09/16/19 20:00 Blood Culture - Preliminary Blood 09/17/19 19:50 Gram Stain - Final Sputum - Induced Sputum Culture - Final 09/17/19 02:15 Gram Stain - Final Sputum - Expectorated Sputum Culture - Final 09/17/19 07:45 Gram Stain - Final Sputum - Expectorated Sputum Culture - Final 09/16/19 23:20 Respiratory Virus Panel (PCR) - Final Nasopharynx 09/16/19 23:20 Respiratory Panel (PCR) - Final Nasopharynx 09/16/19 23:30 MRSA (PCR) - Final Nose MRSA PCR positive Meds: Medications Acetaminophen (Tylenol) 650 mg PO Q6HP PRN PRN Reason: PAIN/FEVER > 101 Last Admin: 09/20/19 14:28 Dose: 650 mg Documented by: Hydrocodone Bitart/Acetaminophen ([place] 5/325mg) 1 tab PO Q4-6HP PRN; Protocol PRN Reason: Per Pain Protocol Allopurinol (Zyloprim) 200 mg PO QDAY [facility] Last Admin: 09/20/19 14:29 Dose: 200 mg Documented by: Amiodarone HCl (Cordarone) 200 mg PO QDAY [facility] Last Admin: 09/20/19 14:29 Dose: 200 mg Documented by: Apixaban (Eliquis) 5 mg PO BID [facility] Last Admin: 09/20/19 14:43 Dose: 5 mg Documented by: Benzonatate (Tessalon) 200 mg PO TIDP PRN PRN Reason: Cough Chlordiazepoxide HCl (Librium) 25 mg PO Q4HP PRN PRN Reason: Alcohol Withdrawal Last Admin: 09/20/19 14:28 Dose: 25 mg Documented by: Chlorhexidine Gluconate (Peridex) 15 ml SWABMOUTH BID [facility] Last Admin: 09/20/19 14:27 Dose: 15 ml Documented by: Doxycycline Hyclate (Doxycycline Hyclate) 100 mg PO BID [facility]; Protocol Last Admin: 09/20/19 14:28 Dose: 100 mg Documented by: Furosemide (Lasix) 40 mg PO BID@0900,1500 [facility] Last Admin: 09/20/19 14:44 Dose: Not Given Documented by: Gabapentin (Neurontin) 300 mg PO TID [facility] Last Admin: 09/20/19 14:29 Dose: 300 mg Documented by: Diltiazem HCl 125 mg/ Dextrose 125 mls @ 5 mls/hr IV Q8HP PRN; Protocol PRN Reason: Tachyarrhythmias Potassium Chloride 40 meq/ (Dextrose) 520 mls @ 130 mls/hr IV UD PRN PRN Reason: Potassium < 3 Magnesium Sulfate (Magnesium Sulfate) 2 gm in 50 mls @ 50 mls/hr IV UD PRN PRN Reason: Magnesium </= 1.6 Last Infusion: 09/20/19 09:01 Dose: Infused Documented by: Sodium Chloride (Sodium Chloride 0.9%) 250 mls @ 20 mls/hr IV .[id number] [facility] Last Admin: 09/20/19 18:05 Dose: Not Given Documented by: Propofol 1,000 mg/ Premix 100 mls @ 4.506 mls/hr IV .[id number] [facility]; Protocol Last Admin: 12/29/19 15:38 Dose: 25 mcg/kg/min, 22.528 mls/hr Documented by: Norepinephrine Bitartrate 16 (mg/ Sodium Chloride) 250 mls @ 9.375 mls/hr IV Q24H [facility]; Protocol Last Titration: 09/20/19 16:30 Dose: 0 mcg/min, 0 mls/hr Documented by: Sodium Chloride (Sodium Chloride 0.9%) 250 mls @ 20 mls/hr IV .[id number] [facility] Last Admin: 09/20/19 18:05 Dose: Not Given Documented by: Sodium Chloride (Sodium Chloride 0.9%) 1,000 mls @ 150 mls/hr IV .[id number] [facility] Last Admin: 09/20/19 12:00 Dose: 150 mls/hr Documented by: Midazolam HCl 50 mg/ Sodium (Chloride) 100 mls @ 6.007 mls/hr IV Q6H [facility]; Protocol Last Admin: 09/20/19 16:36 Dose: 0.07 mg/kg/hr, 20 mls/hr Documented by: Piperacillin Sod/Tazobactam (Sod 3.375 gm/ Dextrose) 50 mls @ 100 mls/hr IV Q6H [facility]; Protocol Last Admin: 09/20/19 18:00 Dose: 100 mls/hr Documented by: Vancomycin HCl 1,500 mg/ (Sodium Chloride) 500 mls @ 333.3 mls/hr IV Q12H [facility] Last Infusion: 09/20/19 14:44 Dose: Infused Documented by: Ipratropium [place] (Atrovent) 2.5 ml NEB Q4HRT PRN PRN Reason: Bronchospasm Ipratropium [place] (Atrovent) 2.5 ml NEB Q8H [facility] Last Admin: 09/20/19 17:12 Dose: 2.5 ml Documented by: Labetalol HCl (Trandate) 0 mg IV Q2HP PRN PRN Reason: Hypertension Lactobacillus Rhamnosus (Culturelle) 1 cap PO BID [facility] Last Admin: 09/20/19 14:42 Dose: 1 cap Documented by: Levalbuterol HCl (Xopenex) 1.25 mg NEB Q4HP PRN PRN Reason: Shortness Of Breath Levalbuterol HCl (Xopenex) 1.25 mg NEB Q8H [facility] Last Admin: 09/20/19 17:12 Dose: 1.25 mg Documented by: Melatonin (Melatonin 3mg Tablet) 3 mg PO HSP PRN PRN Reason: Insomnia Methylprednisolone Sodium Succinate (Solu-Medrol) 40 mg IV Q8 [facility] Last Admin: 09/20/19 14:28 Dose: 40 mg Documented by: Metoprolol Tartrate (Lopressor) 5 mg IV Q2HP PRN PRN Reason: Tachyarrhythmias HR>110 Metoprolol Tartrate (Lopressor) 50 mg PO BID [facility] Last Admin: 09/20/19 12:17 Dose: Not Given Documented by: Mupirocin (Bactroban Oint 2%) 1 dose TOPICAL BID [facility] Last Admin: 09/20/19 09:00 Dose: 1 dose Documented by: Ondansetron HCl (Zofran) 4 mg IV Q4HP PRN PRN Reason: Nausea And Vomiting Polyethylene Glycol (Miralax) 17 gm PO DAILYP PRN PRN Reason: Constipation Potassium Chloride (Kdur) 40 meq PO UD PRN PRN Reason: Potssium is 3-3.5 Potassium Chloride (Kdur) 40 meq PO UD PRN PRN Reason: Potassium < 3 Potassium Chloride (Klor-Con) 20 meq PO BID [facility] Last Admin: 09/20/19 14:33 Dose: 20 meq Documented by: Senna (Senokot) 2 tab PO DAILYP PRN PRN Reason: Constipation Sertraline HCl (Zoloft) 200 mg PO QDAY [facility] Last Admin: 09/20/19 14:42 Dose: 200 mg Documented by: Simvastatin (Zocor) 40 mg PO QAM [facility] Last Admin: 09/20/19 14:43 Dose: 40 mg Documented by: Sodium Chloride (Saline Flush) 10 ml IV Q8 [facility] Last Admin: 09/20/19 14:34 Dose: 10 ml Documented by: Thiamine HCl (Vitamin B1) 100 mg PO DAILY [facility] Last Admin: 09/20/19 14:29 Dose: 100 mg Documented by: Vancomycin HCl (Vancomycin Per Pharmacy) 1 order IV UD [facility]; Protocol Medical - PN: A/P - Time Spent With Patient Total time spent is greater than 50% in coordination of care (as documented) at patient's floor/unit and/or counseling patient: - Narrative A/P Narrative: A/P Delirium, agitation. Remains sedated with high-dose infusions, and intubated. This began a little over 72 hours after admission. It is noted that he does have 3 to 4 glasses of wine an evening, this event is possibly secondary to withdrawal. Delirium secondary to progressive pneumonia also possible, though without significant hypercapnia and hypoxia is compensated. Medications from home reviewed, no apparent medications are missing that could be causing a withdrawal syndrome. New CVA a possibility, though the patient is therapeutic on Eliquis for stroke prophylaxis from atrial fibrillation. -Sedation, ventilation -Daily wake-up trials and reassessment Continue CIWA protocol Pneumonia. CT 09/19 showed extensive bilateral infiltrates, which have worsened on radiographs after intubation. Is positive for human metapneumovirus. Continue supportive care, doxycycline (for atypical coverage as cause of pneumonia), vancomycin and Zosyn for broad-spectrum coverage given progressive radiographic changes Follow-up mycoplasma serology -Follow daily chest films COPD with acute exacerbation and acute hypoxic respiratory failure. Is req uiring FiO2 of 0.50 to maintain oxygen saturations. Concern for developing ARDS, PaO2/FiO2 is 74/0.5 = 148. Oxygen goal saturation 92 to 96% Continue with Solu-Medrol, bronchodilators Shock. Suspect secondary to medications for sedation, continues to require norepinephrine to maintain adequate mean arterial pressure. Less concern for sepsis at this point, however antibiotics have been broadened. -Norepinephrine for blood pressure support while sedated. Leukopenia, thrombocytopenia, suspected secondary to viral infection Monitor Atrial fibrillation. A. fib with RVR, currently on diltiazem drip. On Eliquis at baseline as well as amiodarone. Follows with Dr. Kenney. Continue diltiazem for rate control with acute illness Changed to Xopenex as bronchodilator Costochondritis h/o CVA HTN/HLD: BP meds held Obesity SILVIA intolerant to CPAP Depression: Continue home medications CKD: Monitor, avoid nephrotoxins Anemia, chronic: Monitor Depression: Continue home regimen Hypomag/phos/braden: Replete as needed PPx: home eliquis Initial critical care time documented = 65 min between 0410 and 0600; additional critical care time of 25 min from [id number] for total 90 min CC time 09/20.
[2019-09-21] MEDS: PIPERACILLIN SODIUM/TAZOBACTAM 3.375 GM in DEXTROSE 5% IN WATER 50 ML IV SCH ×4 (00:42→18:07)
[2019-09-21] MEDS: APIXABAN 5 MG TABLET PO SCH (02:08)
[2019-09-21] MEDS: IPRATROPIUM 2.5 ML AMPUL.NEB NEB SCH ×3 (02:21→16:47)
[2019-09-21] MEDS: LEVALBUTEROL 1.25 MG/3 ML AMPUL.NEB NEB SCH ×2 (02:22→09:00)
[2019-09-21] MEDS ORDERED: PROPOFOL 100 ML IV ONE ×5 (02:38→20:05)
[2019-09-21] MEDS: MIDAZOLAM PF 50 MG in 0.9 % SODIUM CHLORIDE 90 ML IV SCH ×4 (02:39→21:17)
[2019-09-21] MEDS: PROPOFOL 1,000 MG in PREMIX 1 BAG IV SCH ×5 (02:40→20:14)
[2019-09-21] MEDS: 0.9 % SODIUM CHLORIDE 1,000 ML IV SCH ×3 (04:12→12:18)
[2019-09-21] MEDS: METOPROLOL TARTRATE 5 MG/5 ML VIAL IV PRN ×2 (04:12→07:00)
[2019-09-21 05:10] LABS: Basophils # (Auto) 0 K/mcL (0.0-0.3); Basophils % (Auto) 0 % (0.0-2.0); Eosinophils # (Auto) 0 K/mcL (0.0-0.7); Eosinophils % (Auto) 0 % (0.0-7.0); Granulocytes % (Auto) 85.5 % (38.0-78.0); Hematocrit 34.3 % (41.0-55.0); Hemoglobin 11.4 g/dL (13.5-16.5); Lymphocytes # (Auto) 0.3 K/mcL (1.5-4.8); Lymphocytes % (Auto) 6.2 % (15.5-49.0); Mean Cell Volume 94.9 fL (80.0-100.0); Mean Corpuscular HGB Conc 33.2 g/dL (31.0-36.0); Mean Platelet Volume 8.3 fL (7.4-10.4); Monocytes # (Auto) 0.4 K/mcL (0.1-0.9); Monocytes % (Auto) 8.3 % (1.0-12.0); Platelet Count 97 K/mcL (140-440); RBC 3.61 M/mcL (4.50-5.90); Red Cell Distribution Width 18.2 % (11.5-14.5); WBC 4.8 K/mcL (4.5-11.0)
[2019-09-21 05:44] LABS: ALT/SGPT 16 U/l (0-40); AST/SGOT 27 U/l (0-37); Albumin 3.2 gm/dL (3.2-5.2); Albumin/Globulin Ratio 1.3 (1.0-2.3); Alkaline Phosphatase 61 U/L (39-117); Bilirubin,Direct < 0.2 mg/dL (0.0-0.3); Bilirubin,Total 0.3 mg/dL (0.0-1.0); Calcium 8.7 mg/dl (8.6-10.4); Carbon Dioxide 21 mmol/L (22-30); Chloride 101 mmol/L (96-108); Globulin 2.5 gm/dL (2.2-3.7); Glucose 123 mg/dL (70-105); Lactate Dehydrogenase 251 U/L (94-250); Triglycerides 134 mg/dl (<150)
[2019-09-21 05:45] LABS: Blood Urea Nitrogen 20 mg/dl (6-20); Glomerular Filtration Rate 84
[2019-09-21] MEDS: methylPREDNISolone SOD SUCC 40 MG/ML VIAL IV SCH (05:51)
[2019-09-21] MEDS: 0.9 % SODIUM CHLORIDE 250 ML IV SCH ×2 (06:00→13:53)
[2019-09-21] MEDS: 0.9 % SODIUM CHLORIDE 10 ML SYRINGE IV SCH ×7 (06:00→21:26)
[2019-09-21] MEDS: chlordiazePOXIDE 25 MG CAPSULE PO PRN ×2 (07:00→21:51)
[2019-09-21] MEDS: HYDROcodone/APAP 5/325MG TABLET PO PRN ×3 (07:01→21:13)
[2019-09-21] MEDS: LABETALOL 5 MG/ML ML IV PRN (08:35)
--- NOTE | 2019-09-21 08:35 | XRay Report ---
CLINICAL INFORMATION: Mechanically Ventilated COMPARISON: 09/20/2019 FINDINGS: Endotracheal and NG tube remain in stable satisfactory position. The heart is mildly enlarged, but unchanged. Mild mediastinal widening is stable. Pulmonary vessels are normal. Moderate right perihilar infiltrate is considerably better aerated on today's exam. Smaller patchy left basilar infiltrate has nearly cleared. Small left pleural effusion noted IMPRESSION: Marked improvement in moderate right perihilar infiltrate. Near-complete clearance of left basilar infiltrate. Interpreted and Authenticated by: Evin Huang 09/21/19
[2019-09-21] MEDS: DILTIAZEM 125 MG in DEXTROSE 5% IN WATER 100 ML IV SCH ×2 (09:30→18:11)
[2019-09-21] MEDS ORDERED: 0.9 % SODIUM CHLORIDE 10 ML SYRINGE IV PRN (09:47)
[2019-09-21] MEDS: MUPIROCIN OINT 2% 22GM TOPICAL SCH ×2 (09:55→21:23)
[2019-09-21] MEDS: CHLORHEXIDINE GLUCONATE 1 ML ORAL.SOL SWABMOUTH SCH ×2 (09:56→21:24)
[2019-09-21] MEDS: LACTOBACILLUS 1 CAPSULE PO SCH ×2 (09:58→21:13)
[2019-09-21] MEDS: ALLOPURINOL 100 MG TABLET PO SCH (09:58)
[2019-09-21] MEDS: FUROSEMIDE 40 MG TABLET PO SCH ×2 (09:59→15:22)
[2019-09-21] MEDS: GABAPENTIN 300 MG CAPSULE PT SCH ×3 (09:59→21:50)
[2019-09-21] MEDS: SERTRALINE 100 MG TABLET PO SCH (09:59)
[2019-09-21] MEDS: AMIODARONE HCL 200 MG TABLET PO SCH (09:59)
[2019-09-21] MEDS: DOXYCYCLINE HYCLATE 100 MG TABLET.ORL PO SCH ×2 (10:00→21:16)
[2019-09-21] MEDS: SIMVASTATIN 40 MG TABLET PO SCH (10:00)
[2019-09-21] MEDS: THIAMINE 100 MG TABLET PO SCH (10:01)
[2019-09-21] MEDS: POTASSIUM CHLORIDE 20 MEQ PACKET PO SCH ×2 (10:01→21:23)
[2019-09-21] MEDS: VANCOMYCIN 1,500 MG in 0.9 % SODIUM CHLORIDE 500 ML IV SCH ×2 (10:15→21:23)
[2019-09-21] MEDS: NOREPINEPHRINE BITARTRATE 16 MG in 0.9 % SODIUM CHLORIDE 234 ML IV SCH (12:15)
--- NOTE | 2019-09-21 12:18 | XRay Report ---
CLINICAL INFORMATION: PICC PLACEMENT COMPARISON: None. FINDINGS: Left PICC line tip is distally positioned with the tip overlying the expected location of the tricuspid valve. The heart is mildly enlarged, but unchanged. Mediastinum is unremarkable. Moderate right perihilar infiltrate shows slight worsening. Minor left basilar atelectasis noted. Endotracheal tube and NG tube remain in stable satisfactory position. IMPRESSION: Left PICC line is distally positioned with the tip overlying the tricuspid valve. The nurses were instructed to withdraw the line 6 cm. Moderate right perihilar infiltrate slight worsening. Interpreted and Authenticated by: Evin Huang 09/21/19
--- NOTE | 2019-09-21 21:25 | Internal Med Progress Note ---
Medical - PN: Subj Patient information: Note initiated : 09/21/19 at 9:25 pm Service Date, if different from initiated Date: [] Patient: Gunner Bliss a 54 y/o M admitted on 09/16/19 for SOB/weakness. Chief Complaint: Follow-up respiratory failure, withdrawal Interval history: 09/16 Mr. Bliss is a 54 year old M Who presents to the hospital for cough and congestion shortness of breath. Patient states about 4 days ago he developed flulike symptoms with headache body aches a cough productive of white sputum. He is complained of fevers and chills. He also has a pleuritic chest pain. Complained of shortness of breath. He had a poor sleep past few nights because of coughing. In the ED he seemed to build to maintain his saturations but did have a mild tachycardia leukopenia and elevated lactate. Procalcitonin was negative. Flu screen was negative. Chest x-ray shows no infiltrates on the right. Denies any weight gain or increased edema in his legs. 09/17 Coughing still. Has some shortness of breath but is slowly improving. States the DuoNeb treatment helped. Overall feeling a little better. Poor sleep. Did have some diarrhea this morning. [place] a little chilled this morning 09/18 still "feels bad but better". cough nonproductive, dyspnea when walking to bathroom. COOK. 09/19 Patient still has cough productive of solorio sputum. And shortness of breath. Has headache and is sweaty on occasion. This morning when in A. fib RVR between rates of 140-160. IV Lopressor given without result patient put on diltiazem drip. Oxygen need increased during episode. 09/20 Earlier on 09/20-Little after midnight, the patient developed agitation. He pulled out his IVs. He began to experience hallucinations. He was on the CIWA protocol received lorazepam, which seemed to worsen his symptoms. He received a dose of Seroquel orally, however continued to have worsening behavior. He received Zyprexa IM x2. He required restraints for safety. Eventually Police Department was called for security and janitorial services supervisor were on scene as well to help manage the patient's behavior. In spite of the above therapies, the patient continued to experience worsening agitation and hallucinations and delirium. He was started on Precedex infusion without significant effect, which was stopped after 30 minutes due to the development of hypotension. Ketamine was considered, however patient's blood pressure was on the low side at that time. During this, Ambriz catheter was placed with about 300 mils of urine return, ruling out significant bladder discomfort as a cause of agitation. Blood gas showed no hypercarbia, did show hypoxia which was pre-existing. There are no apparent new complaints of pain prior to this onset. Due to worsening clinical status, decision was made to intubate. Dr. Hendrickson from the emergency department performed the intubation using glide scope. Patient received 2 mg of Versed with some sedative effect, post intubation required 2 mg further Versed prior to sedation via infusion. Daytime course 09/20-when intubation, the patient required significant doses of propofol and Versed to maintain adequate sedation. Blood pressure rebounded following intubation, then decreased with sedation. Eventually required further boluses and subsequently initiation of norepinephrine via a peripheral line. Labs from post intubation showed acute kidney injury, which had improved by the afternoon. Urine output picked up with improvement in blood pressure. Antibiotic coverage expanded to include vancomycin and Zosyn, continuing doxycycline for atypical coverage given his extensive and worsening bilateral infiltrates. 09/21 Has remained intubated, sedated with propofol and Versed. Still becomes agitated when sedation is lightened. No longer requiring pressors to maintain blood pressure while sedated. Chest x-ray is improved this morning. P/F remaining generally stable. Has started tube feeds for nutrition. - Constitutional Vitals: Vital Signs Temp Pulse Resp BP Pulse Ox 98.8 F 97 H 19 119/74 91 09/21/19 20:01 09/21/19 16:54 09/21/19 19:05 09/21/19 20:31 09/21/19 20:31 Period Temp Pulse Resp BP Sys/Bunch Pulse Ox Last 24 Hr 97.0 F-98.8 F 97-111 15-28 111-169/71-110 90-99 Intake and Output 09/21/19 09/21/19 09/21/19 05:59 13:59 21:59 Intake Total 2087 1857 662 Output Total 077 472 6502 Balance 1425 1241 -1308 Weight 343 lb 11.2 oz 343 lb 11.2 oz Patient Weight 09/22/19 05:59 Weight 343 lb 11.2 oz Intake & Output: Intake & Output 1209/21/19 09/21/19 05:59 13:59 21:59 Intake Total 2086 1856 662 Output Total 006 824 0604 Balance 1425 1241 -1308 Weight 343 lb 11.2 oz 343 lb 11.2 oz Intake: IV 1877 1857 512 Sodium Chloride 0.9% 1,000 ml @ 1000 1000 150 mls/hr IV .[id number] [facility] Rx#: [id number] Cardizem 125 mg In Dextrose 5% 29 86 in Water 100 ml @ 5 MG/HR 5 mls /hr IV Q8H [facility] Rx#:[id number] Versed 50 mg In Sodium Chloride 127 73 200 0.9% 90 ml @ 0.02 MG/KG/HR 6. 007 mls/hr IV Q6H [facility] Rx#: [id number] Zosyn 3.375 gm In Dextrose 5% 50 100 50 in Water 50 ml @ 100 mls/hr IV Q6H [facility] Rx#:[id number] Diprivan 1,000 mg In Premix 1 200 155 176 Bag @ 5 MCG/KG/MIN 4.506 mls/hr IV .[id number] [facility] Rx#:[id number] Vancomycin 1,500 mg In Sodium 500 500 Chloride 0.9% 500 ml @ 333.3 mls/hr IV Q12H [facility] Rx#: [id number] Tube Feeding 0 70 GI Tube Flush 210 80 Output: Gastric Drainage 100 NG/OG 100 Urine Catheter Amount 662 984 6433 Other: Urine Appearance Sediment Clear Sediment Uretheral (Ambriz) Sediment Sediment Urine Color Bright Yellow Dark Yellow Pale Uretheral (Ambriz) Bright Yellow Bright Yellow Urine Odor Normal Normal Normal Exam: General: Sedated and intubated HEENT: OG and ET tubes in place Chest: Coarse breath sounds, no rales, no wheezes Cardiovascular: Distant, irregular Abdomen: Obese, soft, nontender Neuro: Sedated Medical - PN: Obj Da - Labs CBC & Chem 7: 09/21/19 03:55 09/21/19 03:55 Labs: Abnormal Lab Results 09/21/19 09/21/19 09/20/19 03:55 03:55 15:50 WBC RBC 3.61 L Hgb 11.4 L Hct 34.3 L RDW 18.2 H Plt Count 97 L Gran % 85.5 H Lymph % (Auto) 6.2 L Lymph # (Auto) 0.3 L Sodium Potassium Chloride Carbon Dioxide 21 L Anion Gap BUN Creatinine Glucose 123 H Calcium Phosphorus Magnesium AST Lactate Dehydrogenase 251 H Total Protein 5.7 L Urine Protein 30 A Urine Ketones 20 A Urine Occult Blood 0.2 A Urine RBC 25 H 09/20/19 09/20/19 09/20/19 11:56 05:55 05:55 WBC RBC 3.91 L Hgb 12.1 L Hct 37.1 L RDW 18.1 H Plt Count 108 L Gran % 89.8 H Lymph % (Auto) 4.4 L Lymph # (Auto) 0.2 L Sodium 132 L Potassium Chloride 93 L Carbon Dioxide Anion Gap 17.0 H BUN 26 H 25 H Creatinine 1.3 H 1.6 H Glucose 132 H 150 H Calcium 8.5 L Phosphorus 5.4 H Magnesium AST Lactate Dehydrogenase 429 H Total Protein Urine Protein Urine Ketones Urine Occult Blood Urine RBC 09/19/19 09/19/19 04:10 04:10 WBC 4.0 L RBC 3.72 L Hgb 11.6 L Hct 35.2 L RDW 18.4 H Plt Count 108 L Gran % 84.0 H Lymph % (Auto) 8.4 L Lymph # (Auto) 0.3 L Sodium Potassium 2.8 L* Chloride 88 L Carbon Dioxide Anion Gap 17.0 H BUN Creatinine Glucose Calcium Phosphorus 2.0 L Magnesium 1.5 L AST 39 H Lactate Dehydrogenase 293 H Total Protein Urine Protein Urine Ketones Urine Occult Blood Urine RBC Microbiology 09/16/19 19:52 Blood Culture - Final Blood 09/16/19 20:00 Blood Culture - Final Blood 09/20/19 23:00 Gram Stain - Final Sputum - Aspirate Sputum Culture - Preliminary 09/17/19 19:50 Gram Stain - Final Sputum - Induced Sputum Culture - Final 09/17/19 02:15 Gram Stain - Final Sputum - Expectorated Sputum Culture - Final 09/17/19 07:45 Gram Stain - Final Sputum - Expectorated Sputum Culture - Final 09/16/19 23:20 Respiratory Virus Panel (PCR) - Final Nasopharynx 09/16/19 23:20 Respiratory Panel (PCR) - Final Nasopharynx 09/16/19 23:30 MRSA (PCR) - Final Nose MRSA PCR positive Meds: Medications Acetaminophen (Tylenol) 650 mg PO Q6HP PRN PRN Reason: PAIN/FEVER > 101 Last Admin: 09/20/19 14:28 Dose: 650 mg Documented by: Hydrocodone Bitart/Acetaminophen ([place] 5/325mg) 1 tab PO Q4-6HP PRN; Protocol PRN Reason: Per Pain Protocol Last Admin: 09/21/19 21:13 Dose: 1 tab Documented by: Allopurinol (Zyloprim) 200 mg PO QDAY [facility] Last Admin: 09/21/19 09:58 Dose: 200 mg Documented by: Amiodarone HCl (Cordarone) 200 mg PO QDAY [facility] Last Admin: 09/21/19 09:59 Dose: 200 mg Documented by: Benzonatate (Tessalon) 200 mg PO TIDP PRN PRN Reason: Cough Chlordiazepoxide HCl (Librium) 25 mg PO Q4HP PRN PRN Reason: Alcohol Withdrawal Chlorhexidine Gluconate (Peridex) 15 ml SWABMOUTH BID [facility] Last Admin: 09/21/19 09:56 Dose: 15 ml Documented by: Doxycycline Hyclate (Doxycycline Hyclate) 100 mg PO BID [facility]; Protocol Last Admin: 09/21/19 21:16 Dose: 100 mg Documented by: Furosemide (Lasix) 40 mg PO BID@0900,1500 [facility] Last Admin: 09/21/19 15:22 Dose: 40 mg Documented by: Gabapentin (Neurontin) 300 mg PT TID [facility] Last Admin: 09/21/19 15:22 Dose: 300 mg Documented by: Heparin Sodium (Porcine) (Heparin Flush) 2 ml IV Q12 [facility] Heparin Sodium (Porcine) (Heparin Flush) 2 ml IV Q12 [facility] Potassium Chloride 40 meq/ (Dextrose) 520 mls @ 130 mls/hr IV UD PRN PRN Reason: Potassium < 3 Magnesium Sulfate (Magnesium Sulfate) 2 gm in 50 mls @ 50 mls/hr IV UD PRN PRN Reason: Magnesium </= 1.6 Last Infusion: 09/20/19 09:01 Dose: Infused Documented by: Sodium Chloride (Sodium Chloride 0.9%) 250 mls @ 20 mls/hr IV .[id number] [facility] Last Admin: 09/21/19 06:00 Dose: Not Given Documented by: Propofol 1,000 mg/ Premix 100 mls @ 4.506 mls/hr IV .[id number] [facility]; Protocol Last Admin: 09/21/19 20:14 Dose: 24.97 mcg/kg/min, 22.5 mls/hr Documented by: Norepinephrine Bitartrate 16 (mg/ Sodium Chloride) 250 mls @ 9.375 mls/hr IV Q24H [facility]; Protocol Last Admin: 09/21/19 12:15 Dose: Not Given Documented by: Sodium Chloride (Sodium Chloride 0.9%) 250 mls @ 20 mls/hr IV .[id number] [facility] Last Admin: 09/21/19 13:53 Dose: Not Given Documented by: Midazolam HCl 50 mg/ Sodium (Chloride) 100 mls @ 6.007 mls/hr IV Q6H [facility]; Protocol Last Admin: 09/21/19 21:17 Dose: 0.05 mg/kg/hr, 16 mls/hr Documented by: Piperacillin Sod/Tazobactam (Sod 3.375 gm/ Dextrose) 50 mls @ 100 mls/hr IV Q6H [facility]; Protocol Last Infusion: 09/21/19 18:45 Dose: Infused Documented by: Vancomycin HCl 1,500 mg/ (Sodium Chloride) 500 mls @ 333.3 mls/hr IV Q12H [facility] Last Infusion: 09/21/19 12:16 Dose: Infused Documented by: Diltiazem HCl 125 mg/ Dextrose 125 mls @ 5 mls/hr IV Q8H [facility]; Protocol Last Admin: 09/21/19 18:11 Dose: 15 mg/hr, 15 mls/hr Documented by: Sodium Chloride (Sodium Chloride 0.9%) 1,000 mls @ 100 mls/hr IV .Q10H [facility] Last Admin: 09/21/19 12:00 Dose: 100 mls/hr Documented by: Ipratropium [place] (Atrovent) 2.5 ml NEB Q8H [facility] Last Admin: 09/21/19 16:47 Dose: 2.5 ml Documented by: Labetalol HCl (Trandate) 0 mg IV Q2HP PRN PRN Reason: Hypertension Last Admin: 09/21/19 08:35 Dose: 10 mg Documented by: Lactobacillus Rhamnosus (Culturelle) 1 cap PO BID [facility] Last Admin: 09/21/19 21:13 Dose: 1 cap Documented by: Levalbuterol HCl (Xopenex) 1.25 mg NEB Q4HP PRN PRN Reason: Shortness Of Breath Melatonin (Melatonin 3mg Tablet) 3 mg PO HSP PRN PRN Reason: Insomnia Methylprednisolone Sodium Succinate (Solu-Medrol) 40 mg IV DAILY [facility] Mupirocin (Bactroban Oint 2%) 1 dose TOPICAL BID [facility] Last Admin: 09/21/19 09:55 Dose: 1 dose Documented by: Ondansetron HCl (Zofran) 4 mg IV Q4HP PRN PRN Reason: Nausea And Vomiting Polyethylene Glycol (Miralax) 17 gm PO DAILYP PRN PRN Reason: Constipation Potassium Chloride (Kdur) 40 meq PO UD PRN PRN Reason: Potssium is 3-3.5 Potassium Chloride (Kdur) 40 meq PO UD PRN PRN Reason: Potassium < 3 Potassium Chloride (Klor-Con) 20 meq PO BID [facility] Last Admin: 09/21/19 10:01 Dose: 20 meq Documented by: Senna (Senokot) 2 tab PO DAILYP PRN PRN Reason: Constipation Sertraline HCl (Zoloft) 200 mg PO QDAY [facility] Last Admin: 09/21/19 09:59 Dose: 200 mg Documented by: Simvastatin (Zocor) 40 mg PO QAM [facility] Last Admin: 09/21/19 10:00 Dose: 40 mg Documented by: Sodium Chloride (Saline Flush) 10 ml IV Q8 [facility] Last Admin: 09/21/19 12:05 Dose: 10 ml Documented by: Sodium Chloride (Saline Flush) 10 ml IV UD PRN PRN Reason: FLUSH Sodium Chloride (Saline Flush) 10 ml IV Q12 [facility] Thiamine HCl (Vitamin B1) 100 mg PO DAILY [facility] Last Admin: 09/21/19 10:01 Dose: 100 mg Documented by: Vancomycin HCl (Vancomycin Per Pharmacy) 1 order IV UD [facility]; Protocol Medical - PN: A/P - Time Spent With Patient 35 minutes critical care time - Narrative A/P Narrative: A/P Delirium, agitation. Remains intubated and requiring sedation with significant doses of propofol and Versed. This began a little over 72 hours after admission. It is noted that he does have 3 to 4 glasses of wine an evening, this event is possibly secondary to withdrawal. Medications from home reviewed, no apparent medications are missing that could be causing a withdrawal syndrome. New CVA a possibility, though the patient is therapeutic on Eliquis for stroke prophylaxis from atrial fibrillation. -Sedation, ventilation -Daily wake-up trials and reassessment Continue CIWA protocol, as needed chlordiazepoxide as an adjunct Pneumonia. CT 09/19 showed extensive bilateral infiltrates, which have worsened on radiographs after intubation. Is positive for human metapneumovirus. Continue supportive care, doxycycline (for atypical coverage as cause of pneumonia), vancomycin and Zosyn for broad-spectrum coverage given progressive radiographic changes. Chest x-ray is improving today, though still right-sided infiltrates Follow-up mycoplasma serology -Follow daily chest films -Follow-up sputum culture COPD with acute exacerbation and acute hypoxic respiratory failure. Is requiring FiO2 of 0.50 to maintain oxygen saturations. Concern for developing ARDS, PaO2/FiO2 is 74/0.5 = 148. Oxygen goal saturation 92 to 96% Continue with Solu-Medrol, bronchodilators -Monitor oxygen needs Shock. Resolved. Suspect secondary to medications for sedation, continues to require norepinephrine to maintain adequate mean arterial pressure. Less concern for sepsis, but remains on broadened antibacterials. -Norepinephrine as needed for blood pressure support while sedated. Acute kidney injury. In the setting of delirium and decreased oral intake as well as hypotension. Now resolved. Continue to monitor renal function Leukopenia, thrombocytopenia, suspected secondary to viral infection. Resolving. Monitor Atrial fibrillation. A. fib with RVR, currently on diltiazem drip as needed for control. On Eliquis at baseline as well as amiodarone. Follows with Dr. Kenney. Continue diltiazem for rate control with acute illness Changed to Xopenex as bronchodilator Continue amiodarone Resume Eliquis now that PICC line is been placed Costochondritis h/o CVA HTN/HLD: BP meds held Obesity SILVIA intolerant to CPAP Depression: Continue home medications CKD: Monitor, avoid nephrotoxins Anemia, chronic: Monitor Depression: Continue home regimen Hypomag/phos/braden: Replete as needed PPx: home eliquis
[2019-09-22] MEDS: 0.9 % SODIUM CHLORIDE 250 ML IV SCH ×5 (00:04→16:11)
[2019-09-22] MEDS: MIDAZOLAM PF 50 MG in 0.9 % SODIUM CHLORIDE 90 ML IV SCH ×4 (00:05→16:12)
[2019-09-22] MEDS ORDERED: PROPOFOL 100 ML IV ONE ×3 (00:08→09:29)
[2019-09-22] MEDS: PROPOFOL 1,000 MG in PREMIX 1 BAG IV SCH ×7 (00:11→21:15)
[2019-09-22] MEDS: 0.9 % SODIUM CHLORIDE 1,000 ML IV SCH ×3 (00:11→10:57)
[2019-09-22] MEDS: PIPERACILLIN SODIUM/TAZOBACTAM 3.375 GM in DEXTROSE 5% IN WATER 50 ML IV SCH ×4 (00:12→17:28)
[2019-09-22] MEDS: IPRATROPIUM 2.5 ML AMPUL.NEB NEB SCH ×3 (01:23→17:01)
[2019-09-22] MEDS: 0.9 % SODIUM CHLORIDE 10 ML SYRINGE IV SCH ×5 (05:25→20:20)
[2019-09-22 06:19] LABS: Basophils # (Auto) 0 K/mcL (0.0-0.3); Basophils % (Auto) 0 % (0.0-2.0); Eosinophils # (Auto) 0 K/mcL (0.0-0.7); Eosinophils % (Auto) 0 % (0.0-7.0); Granulocytes % (Auto) 77.8 % (38.0-78.0); Hematocrit 32.6 % (41.0-55.0); Hemoglobin 10.6 g/dL (13.5-16.5); Lymphocytes # (Auto) 0.5 K/mcL (1.5-4.8); Lymphocytes % (Auto) 9.7 % (15.5-49.0); Mean Cell Volume 94.8 fL (80.0-100.0); Mean Corpuscular HGB Conc 32.5 g/dL (31.0-36.0); Mean Platelet Volume 8.6 fL (7.4-10.4); Monocytes # (Auto) 0.6 K/mcL (0.1-0.9); Monocytes % (Auto) 12.5 % (1.0-12.0); Platelet Count 125 K/mcL (140-440); RBC 3.44 M/mcL (4.50-5.90); Red Cell Distribution Width 18.5 % (11.5-14.5); WBC 5.1 K/mcL (4.5-11.0)
[2019-09-22] MEDS: DILTIAZEM 125 MG in DEXTROSE 5% IN WATER 100 ML IV SCH ×3 (06:25→17:29)
[2019-09-22 06:50] LABS: ALT/SGPT 15 U/l (0-40); AST/SGOT 24 U/l (0-37); Albumin 2.9 gm/dL (3.2-5.2); Albumin/Globulin Ratio 1.2 (1.0-2.3); Alkaline Phosphatase 59 U/L (39-117); Bilirubin,Direct < 0.2 mg/dL (0.0-0.3); Bilirubin,Total 0.2 mg/dL (0.0-1.0); Blood Urea Nitrogen 23 mg/dl (6-20); Calcium 8.5 mg/dl (8.6-10.4); Carbon Dioxide 22 mmol/L (22-30); Chloride 102 mmol/L (96-108); Globulin 2.4 gm/dL (2.2-3.7); Glomerular Filtration Rate 67; Glucose 108 mg/dL (70-105); Lactate Dehydrogenase 217 U/L (94-250); Triglycerides 119 mg/dl (<150); Uric Acid 2.8 mg/dL (2.5-8.0)
[2019-09-22] MEDS: HYDROcodone/APAP 5/325MG TABLET PO PRN ×3 (07:14→20:17)
[2019-09-22] MEDS: chlordiazePOXIDE 25 MG CAPSULE PO PRN ×3 (07:14→20:19)
[2019-09-22] MEDS: MUPIROCIN OINT 2% 22GM TOPICAL SCH ×2 (08:30→20:16)
--- NOTE | 2019-09-22 08:31 | XRay Report ---
CLINICAL INFORMATION: Mechanically Ventilated COMPARISON: None. FINDINGS: Moderate cardiomegaly is unchanged. Mild mediastinal widening also stable.Pulmonary vessels normal. Moderate right perihilar infiltrate shows slight improved aeration. Moderate left basilar infiltrate and or atelectasis (retrocardiac region) has worsened slightly. Small bilateral pleural effusions progressing. Endotracheal tip is now distal - 12 mm above the antony. OG lines and PICC line in stable satisfactory position IMPRESSION: 1. Moderate right perihilar infiltrate slight improvement. Moderate left basilar infiltrate or atelectasis worsening. 2. Endotracheal tip now 12 mm above the antony. The tube should be withdrawn 2 cm Interpreted and Authenticated by: Evin Huang 09/22/19
[2019-09-22] MEDS: NYSTATIN 500,000 UNITS/5 ML ORAL.SUSP SSP SCH ×4 (08:50→20:18)
[2019-09-22] MEDS: POTASSIUM CHLORIDE 20 MEQ PACKET PO SCH ×2 (08:50→20:16)
[2019-09-22] MEDS: methylPREDNISolone SOD SUCC 40 MG/ML VIAL IV SCH (08:50)
[2019-09-22] MEDS: CHLORHEXIDINE GLUCONATE 1 ML ORAL.SOL SWABMOUTH SCH ×2 (08:50→20:16)
[2019-09-22] MEDS: SERTRALINE 100 MG TABLET PO SCH (08:51)
[2019-09-22] MEDS: LACTOBACILLUS 1 CAPSULE PO SCH ×2 (08:51→20:17)
[2019-09-22] MEDS: SIMVASTATIN 40 MG TABLET PO SCH (08:51)
[2019-09-22] MEDS: AMIODARONE HCL 200 MG TABLET PO SCH (08:52)
[2019-09-22] MEDS: THIAMINE 100 MG TABLET PO SCH (08:52)
[2019-09-22] MEDS: FUROSEMIDE 40 MG TABLET PO SCH ×2 (08:52→14:55)
[2019-09-22] MEDS: ALLOPURINOL 100 MG TABLET PO SCH (08:52)
[2019-09-22] MEDS: APIXABAN 5 MG TABLET PO SCH ×2 (08:52→20:19)
[2019-09-22] MEDS: DOXYCYCLINE HYCLATE 100 MG TABLET.ORL PO SCH (08:52)
[2019-09-22] MEDS: NOREPINEPHRINE BITARTRATE 16 MG in 0.9 % SODIUM CHLORIDE 234 ML IV SCH (08:53)
[2019-09-22] MEDS: GABAPENTIN 300 MG CAPSULE PT SCH ×3 (08:53→20:19)
[2019-09-22] MEDS: VANCOMYCIN 1,500 MG in 0.9 % SODIUM CHLORIDE 500 ML IV SCH ×2 (09:00→20:22)
[2019-09-22] MEDS ORDERED: NOREPINEPHRINE BITARTRATE 16 MG in 0.9 % SODIUM CHLORIDE 234 ML IV PRN (09:30)
--- NOTE | 2019-09-22 11:14 | Internal Med Progress Note ---
Medical - PN: Subj Patient information: Note initiated : 09/22/19 at 11:11 am Service Date, if different from initiated Date: [] Patient: Gunner Bliss a 54 y/o M admitted on 09/16/19 for SOB/weakness. Chief Complaint: Follow-up alcohol withdrawal Interval history: 09/16 Mr. Bliss is a 54 year old M Who presents to the hospital for cough and congestion shortness of breath. Patient states about 4 days ago he developed flulike symptoms with headache body aches a cough productive of white sputum. He is complained of fevers and chills. He also has a pleuritic chest pain. Complained of shortness of breath. He had a poor sleep past few nights because of coughing. In the ED he seemed to build to maintain his saturations but did have a mild tachycardia leukopenia and elevated lactate. Procalcitonin was negative. Flu screen was negative. Chest x-ray shows no infiltrates on the right. Denies any weight gain or increased edema in his legs. 09/17 Coughing still. Has some shortness of breath but is slowly improving. States the DuoNeb treatment helped. Overall feeling a little better. Poor sleep. Did have some diarrhea this morning. [place] a little chilled this morning 09/18 still "feels bad but better". cough nonproductive, dyspnea when walking to bathroom. COOK. 09/19 Patient still has cough productive of solorio sputum. And shortness of breath. Has headache and is sweaty on occasion. This morning when in A. fib RVR between rates of 140-160. IV Lopressor given without result patient put on diltiazem drip. Oxygen need increased during episode. 09/20 Earlier on 09/20-Little after midnight, the patient developed agitation. He pulled out his IVs. He began to experience hallucinations. He was on the CIWA protocol received lorazepam, which seemed to worsen his symptoms. He received a dose of Seroquel orally, however continued to have worsening behavior. He received Zyprexa IM x2. He required restraints for safety. Eventually Police Department was called for security and blocker and cutter contact lens were on scene as well to help manage the patient's behavior. In spite of the above therapies, the patient continued to experience worsening agitation and hallucinations and delirium. He was started on Precedex infusion without significant effect, which was stopped after 30 minutes due to the development of hypotension. Ketamine was considered, however patient's blood pressure was on the low side at that time. During this, Ambriz catheter was placed with about 300 mils of urine return, ruling out significant bladder discomfort as a cause of agitation. Blood gas showed no hypercarbia, did show hypoxia which was pre-existing. There are no apparent new complaints of pain prior to this onset. Due to worsening clinical status, decision was made to intubate. Dr. Hendrickson from the emergency department performed the intubation using glide scope. Patient received 2 mg of Versed with some sedative effect, post intubation required 2 mg further Versed prior to sedation via infusion. Daytime course 09/20-when intubation, the patient required significant doses of propofol and Versed to maintain adequate sedation. Blood pressure rebounded following intubation, then decreased with sedation. Eventually required further boluses and subsequently initiation of norepinephrine via a peripheral line. Labs from post intubation showed acute kidney injury, which had improved by the afternoon. Urine output picked up with improvement in blood pressure. Antibiotic coverage expanded to include vancomycin and Zosyn, continuing doxycycline for atypical coverage given his extensive and worsening bilateral infiltrates. 09/21 Has remained intubated, sedated with propofol and Versed. Still becomes agitated when sedation is lightened. No longer requiring pressors to maintain blood pressure while sedated. Chest x-ray is improved this morning. P/F remaining generally stable. Has started tube feeds for nutrition. 09/22 Patient's visited yesterday. She provided further history that the patient has significant intake of hard liquor, starting to drink in the morning, consuming all day long, arising at night to have further intake. Remains on diltiazem drip for A. fib rate control. Not requiring pressors for blood pressure while sedated. On propofol with adjunct midazolam for sedation. Still quite agitated whenever sedation is lightened. Also receiving chlordiazepoxide per tube for withdrawal symptoms. Ventilator stable, P/F ratio in the 120s. Radiograph stable. - Constitutional Vitals: Vital Signs Temp Pulse Resp BP Pulse Ox 97.6 F 83 16 119/77 95 09/22/19 06:51 09/22/19 09:29 09/22/19 09:29 09/22/19 10:31 09/22/19 10:01 Period Temp Pulse Resp BP Sys/Bunch Pulse Ox Last 24 Hr 97.1 F-98.8 F 83-97 16-24 103-150/56-90 90-96 Intake and Output 09/21/19 09/22/19 09/22/19 21:59 05:59 13:59 Intake Total 662 2543 2183 Output Total 2490 365 355 Balance -1828 8 1828 Weight 345 lb 8 oz 345 lb 8 oz Intake & Output: Intake & Output 09/21/19 09/22/19 09/22/19 21:59 05:59 13:59 Intake Total 662 2543 2183 Output Total 2490 365 355 Balance -1828 8 1828 Weight 345 lb 8 oz 345 lb 8 oz Intake: IV 512 1953 1668 Sodium Chloride 0.9% 1,000 ml @ 1000 1000 100 mls/hr IV .Q10H [facility] Rx#: [id number] Cardizem 125 mg In Dextrose 5% 86 93 32 in Water 100 ml @ 5 MG/HR 5 mls /hr IV Q8H [facility] Rx#:[id number] Versed 50 mg In Sodium Chloride 200 107 0.9% 90 ml @ 0.02 MG/KG/HR 6. 007 mls/hr IV Q6H [facility] Rx#: [id number] Zosyn 3.375 gm In Dextrose 5% 50 50 50 in Water 50 ml @ 100 mls/hr IV Q6H [facility] Rx#:[id number] Diprivan 1,000 mg In Premix 1 176 203 86 Bag @ 5 MCG/KG/MIN 4.506 mls/hr IV .[id number] [facility] Rx#:[id number] Vancomycin 1,500 mg In Sodium 500 500 Chloride 0.9% 500 ml @ 333.3 mls/hr IV Q12H [facility] Rx#: [id number] Tube Feeding 70 250 355 GI Tube Flush 80 340 160 Output: Urine Catheter Amount 2490 265 355 Other 100 Other: Urine Appearance Sediment Sediment Cloudy Uretheral (Ambriz) Sediment Sediment Cloudy Urine Color Pale Light Nalini Pale Blood Tinged Uretheral (Ambriz) Pale Dark [place] Dark Yellow Urine Odor Normal Normal Exam: General: Sedated HEENT: Pupils equal, OG and ET tubes in place Chest: Diminished on right, patient on right side at time of exam Cardiovascular: Irregular, trace peripheral edema Abdomen: Obese, soft Neuro: Sedated, intubated Medical - PN: Obj Da - Labs CBC & Chem 7: 09/22/19 03:58 09/22/19 03:58 Labs: Abnormal Lab Results 09/22/19 09/22/19 09/21/19 03:58 03:58 03:55 RBC 3.44 L Hgb 10.6 L Hct 32.6 L RDW 18.5 H Plt Count 125 L Gran % Lymph % (Auto) 9.7 L Story % (Auto) 12.5 H Lymph # (Auto) 0.5 L Sodium Chloride Carbon Dioxide 21 L Anion Gap BUN 23 H Creatinine Glucose 108 H 123 H Calcium 8.5 L Phosphorus Lactate Dehydrogenase 251 H Total Protein 5.3 L 5.7 L Albumin 2.9 L Urine Protein Urine Ketones Urine Occult Blood Urine RBC 09/21/19 09/20/19 09/20/19 03:55 15:50 11:56 RBC 3.61 L Hgb 11.4 L Hct 34.3 L RDW 18.2 H Plt Count 97 L Gran % 85.5 H Lymph % (Auto) 6.2 L Story % (Auto) Lymph # (Auto) 0.3 L Sodium Chloride Carbon Dioxide Anion Gap BUN 26 H Creatinine 1.3 H Glucose 132 H Calcium 8.5 L Phosphorus Lactate Dehydrogenase Total Protein Albumin Urine Protein 30 A Urine Ketones 20 A Urine Occult Blood 0.2 A Urine RBC 25 H 09/20/19 09/20/19 05:55 05:55 RBC 3.91 L Hgb 12.1 L Hct 37.1 L RDW 18.1 H Plt Count 108 L Gran % 89.8 H Lymph % (Auto) 4.4 L Story % (Auto) Lymph # (Auto) 0.2 L Sodium 132 L Chloride 93 L Carbon Dioxide Anion Gap 17.0 H BUN 25 H Creatinine 1.6 H Glucose 150 H Calcium Phosphorus 5.4 H Lactate Dehydrogenase 429 H Total Protein Albumin Urine Protein Urine Ketones Urine Occult Blood Urine RBC Meds: Medications Acetaminophen (Tylenol) 650 mg PO Q6HP PRN PRN Reason: PAIN/FEVER > 101 Last Admin: 09/20/19 14:28 Dose: 650 mg Documented by: Hydrocodone Bitart/Acetaminophen ([place] 5/325mg) 1 tab PO Q4-6HP PRN; Protocol PRN Reason: Per Pain Protocol Last Admin: 09/22/19 07:14 Dose: 1 tab Documented by: Allopurinol (Zyloprim) 200 mg PO QDAY [facility] Last Admin: 09/22/19 08:52 Dose: 200 mg Documented by: Amiodarone HCl (Cordarone) 200 mg PO QDAY [facility] Last Admin: 09/22/19 08:52 Dose: 200 mg Documented by: Apixaban (Eliquis) 5 mg PO BID [facility] Last Admin: 09/22/19 08:52 Dose: 5 mg Documented by: Benzonatate (Tessalon) 200 mg PO TIDP PRN PRN Reason: Cough Chlordiazepoxide HCl (Librium) 25 mg PO Q4HP PRN PRN Reason: Alcohol Withdrawal Last Admin: 09/22/19 07:14 Dose: 25 mg Documented by: Chlorhexidine Gluconate (Peridex) 15 ml SWABMOUTH BID [facility] Last Admin: 09/22/19 08:50 Dose: 15 ml Documented by: Furosemide (Lasix) 40 mg PO BID@0900,1500 [facility] Last Admin: 09/22/19 08:52 Dose: 40 mg Documented by: Gabapentin (Neurontin) 300 mg PT TID [facility] Last Admin: 09/22/19 08:53 Dose: 300 mg Documented by: Heparin Sodium (Porcine) (Heparin Flush) 2 ml IV Q12 [facility] Last Admin: 09/22/19 01:00 Dose: 2 ml Documented by: Heparin Sodium (Porcine) (Heparin Flush) 2 ml IV Q12 [facility] Last Admin: 09/22/19 09:02 Dose: Not Given Documented by: Potassium Chloride 40 meq/ (Dextrose) 520 mls @ 130 mls/hr IV UD PRN PRN Reason: Potassium < 3 Magnesium Sulfate (Magnesium Sulfate) 2 gm in 50 mls @ 50 mls/hr IV UD PRN PRN Reason: Magnesium </= 1.6 Last Infusion: 09/20/19 09:01 Dose: Infused Documented by: Sodium Chloride (Sodium Chloride 0.9%) 250 mls @ 20 mls/hr IV .[id number] [facility] Last Admin: 09/22/19 04:15 Dose: 20 mls/hr Documented by: Propofol 1,000 mg/ Premix 100 mls @ 4.506 mls/hr IV .[id number] [facility]; Protocol Last Admin: 09/22/19 09:35 Dose: 40 mcg/kg/min, 36.044 mls/hr Documented by: Sodium Chloride (Sodium Chloride 0.9%) 250 mls @ 20 mls/hr IV .[id number] [facility] Last Admin: 09/22/19 00:05 Dose: Not Given Documented by: Midazolam HCl 50 mg/ Sodium (Chloride) 100 mls @ 6.007 mls/hr IV Q6H [facility]; Protocol Last Titration: 09/22/19 05:32 Dose: 0.01 mg/kg/hr, 3.004 mls/hr Documented by: Piperacillin Sod/Tazobactam (Sod 3.375 gm/ Dextrose) 50 mls @ 100 mls/hr IV Q6H [facility]; Protocol Last Infusion: 09/22/19 06:00 Dose: Infused Documented by: Vancomycin HCl 1,500 mg/ (Sodium Chloride) 500 mls @ 333.3 mls/hr IV Q12H [facility] Last Infusion: 09/22/19 10:56 Dose: Infused Documented by: Diltiazem HCl 125 mg/ Dextrose 125 mls @ 5 mls/hr IV Q8H [facility]; Protocol Last Admin: 09/22/19 07:30 Dose: 5 mg/hr, 5 mls/hr Documented by: Norepinephrine Bitartrate 16 (mg/ Sodium Chloride) 250 mls @ 9.375 mls/hr IV Q24HP PRN; Protocol PRN Reason: Hypotension Sodium Chloride (Sodium Chloride 0.9%) 1,000 mls @ 50 mls/hr IV .Q20H [facility] Last Admin: 09/22/19 10:57 Dose: 50 mls/hr Documented by: Ipratropium [place] (Atrovent) 2.5 ml NEB Q8H [facility] Last Admin: 09/22/19 09:25 Dose: 2.5 ml Documented by: Labetalol HCl (Trandate) 0 mg IV Q2HP PRN PRN Reason: Hypertension Last Admin: 09/21/19 08:35 Dose: 10 mg Documented by: Lactobacillus Rhamnosus (Culturelle) 1 cap PO BID [facility] Last Admin: 09/22/19 08:51 Dose: 1 cap Documented by: Levalbuterol HCl (Xopenex) 1.25 mg NEB Q4HP PRN PRN Reason: Shortness Of Breath Melatonin (Melatonin 3mg Tablet) 3 mg PO HSP PRN PRN Reason: Insomnia Methylprednisolone Sodium Succinate (Solu-Medrol) 40 mg IV DAILY [facility] Last Admin: 09/22/19 08:50 Dose: 40 mg Documented by: Mupirocin (Bactroban Oint 2%) 1 dose TOPICAL BID [facility] Last Admin: 09/22/19 08:30 Dose: 1 dose Documented by: Nystatin (Nystatin) 500,000 units SSP QID [facility] Last Admin: 09/22/19 08:50 Dose: 500,000 units Documented by: Ondansetron HCl (Zofran) 4 mg IV Q4HP PRN PRN Reason: Nausea And Vomiting Polyethylene Glycol (Miralax) 17 gm PO DAILYP PRN PRN Reason: Constipation Potassium Chloride (Kdur) 40 meq PO UD PRN PRN Reason: Potssium is 3-3.5 Potassium Chloride (Kdur) 40 meq PO UD PRN PRN Reason: Potassium < 3 Potassium Chloride (Klor-Con) 20 meq PO BID [facility] Last Admin: 09/22/19 08:50 Dose: 20 meq Documented by: Senna (Senokot) 2 tab PO DAILYP PRN PRN Reason: Constipation Sertraline HCl (Zoloft) 200 mg PO QDAY [facility] Last Admin: 09/22/19 08:51 Dose: 200 mg Documented by: Simvastatin (Zocor) 40 mg PO QAM [facility] Last Admin: 09/22/19 08:51 Dose: 40 mg Documented by: Sodium Chloride (Saline Flush) 10 ml IV Q8 [facility] Last Admin: 09/22/19 05:25 Dose: 10 ml Documented by: Sodium Chloride (Saline Flush) 10 ml IV UD PRN PRN Reason: FLUSH Sodium Chloride (Saline Flush) 10 ml IV Q12 [facility] Last Admin: 09/22/19 09:08 Dose: 10 ml Documented by: Thiamine HCl (Vitamin B1) 100 mg PO DAILY [facility] Last Admin: 09/22/19 08:52 Dose: 100 mg Documented by: Vancomycin HCl (Vancomycin Per Pharmacy) 1 order IV UD [facility]; Protocol - Imaging and cardiology Chest x-ray Status: image reviewed by me Additional comments: IMPRESSION: 1. Moderate right perihilar infiltrate slight improvement. Moderate left basilar infiltrate or atelectasis worsening. 2. Endotracheal tip now 12 mm above the antony. The tube should be withdrawn 2 cm - ABG Interpretation ABG results: pH 7.47, PCO2 36, PO2 62 on 0.50 FiO2 Medical - PN: A/P - Time Spent With Patient Total time spent is greater than 50% in coordination of care (as documented) at patient's floor/unit and/or counseling patient: Greater than 35 minutes - Narrative A/P Narrative: A/P Delirium, agitation. With further history of significant daily alcohol consumption, this presentation is consistent with severe alcohol withdrawal syndrome. Remains intubated and requiring sedation with significant doses of propofol and Versed. Symptoms began a little over 72 hours after admission. Further history from , notes heavy daily consumption of hard liquor, even arising at night for further consumption. -Sedation with propofol, medazepam as secondary agent -Daily wake-up trials and reassessment Continue CIWA protocol, as needed chlordiazepoxide for ongoing withdrawal symptoms Pneumonia. CT 09/19 showed extensive bilateral infiltrates, which worsened on radiographs after intubation. Is positive for human metapneumovirus. Chest x- ray starting to improve, still with right basilar infiltrate. Vancomycin and Zosyn for broad-spectrum coverage given progressive radiographic changes Discontinue doxycycline Follow-up mycoplasma serology, though lower suspicion for atypicals -Follow daily chest films -Follow-up sputum culture, final read still pending COPD with acute exacerbation and acute hypoxic respiratory failure. Is requiring FiO2 of 0.50 to maintain oxygen saturations. Initial concern for developing ARDS, PaO2/FiO2 is 74/0.5 = 148, now stable at 62/0.5. Radiograph starting to clear, less concern for ARDS. Oxygen goal saturation 92 to 96% Continue with Solu-Medrol (dose reduced), bronchodilators -Monitor oxygen needs Shock. Resolved. Suspect secondary to medications for sedation, continues to require norepinephrine to maintain adequate mean arterial pressure. Less concern for sepsis, but remains on broadened antibacterials. -Norepinephrine as needed for blood pressure support while sedated. Acute kidney injury. In the setting of delirium and decreased oral intake as well as hypotension. Now resolved. Continue to monitor renal function Leukopenia, thrombocytopenia, suspected secondary to viral infection. Resolving. Monitor Atrial fibrillation. A. fib with RVR, currently on diltiazem drip as needed for control. On Eliquis at baseline as well as amiodarone. Follows with Dr. Familia ford Continue diltiazem for rate control with acute illness Changed to Xopenex as bronchodilator Continue amiodarone Resumed Eliquis now that PICC line is been placed Costochondritis h/o CVA HTN/HLD: BP meds held Obesity SILVIA intolerant to CPAP Depression: Continue home medications CKD: Monitor, avoid nephrotoxins Anemia, chronic: Monitor Depression: Continue home regimen Hypomag/phos/braden: Replete as needed PPx: home eliquis
[2019-09-22] MEDS: POTASSIUM CHLORIDE 20 MEQ TABLET PO PRN (11:57)
[2019-09-22 17:40] LABS: M. Pneumoniae IGG 1.14 ISR
[2019-09-23] MEDS: PROPOFOL 1,000 MG in PREMIX 1 BAG IV SCH ×8 (00:41→23:05)
[2019-09-23] MEDS: PIPERACILLIN SODIUM/TAZOBACTAM 3.375 GM in DEXTROSE 5% IN WATER 50 ML IV SCH ×4 (00:44→17:51)
[2019-09-23] MEDS: HYDROcodone/APAP 5/325MG TABLET PO PRN (00:46)
[2019-09-23] MEDS: chlordiazePOXIDE 25 MG CAPSULE PO PRN ×2 (00:46→10:24)
[2019-09-23] MEDS: IPRATROPIUM 2.5 ML AMPUL.NEB NEB SCH ×3 (01:58→17:06)
[2019-09-23] MEDS: DILTIAZEM 125 MG in DEXTROSE 5% IN WATER 100 ML IV SCH ×3 (02:00→15:53)
[2019-09-23] MEDS ORDERED: DILTIAZEM 125 MG/25 ML VIAL IV ONE (02:26)
[2019-09-23] MEDS: MIDAZOLAM PF 50 MG in 0.9 % SODIUM CHLORIDE 90 ML IV SCH ×5 (02:42→19:37)
[2019-09-23] MEDS: 0.9 % SODIUM CHLORIDE 250 ML IV SCH ×8 (02:50→23:07)
[2019-09-23] MEDS: 0.9 % SODIUM CHLORIDE 10 ML SYRINGE IV SCH ×4 (04:42→21:22)
[2019-09-23 06:43] LABS: Basophils # (Auto) 0.01 K/mcL (0.00-0.30); Basophils % (Auto) 0.2 % (0.0-2.0); Eosinophils # (Auto) 0 K/mcL (0.00-0.70); Eosinophils % (Auto) 0 % (0.0-7.0); Granulocytes % (Auto) 70.4 % (38.0-78.0); Hematocrit 34.3 % (40.1-51.0); Lymphocytes # (Auto) 0.74 K/mcL (1.50-4.80); Lymphocytes % (Auto) 11.6 % (15.5-49.0); Mean Cell Volume 95.8 fL (80.0-100.0); Mean Corpuscular HGB Conc 32.1 g/dL (31.0-36.0); Mean Platelet Volume 11.2 fL (7.4-10.4); Monocytes # (Auto) 1.14 K/mcL (0.10-0.90); Monocytes % (Auto) 17.8 % (1.0-12.0); Platelet Count 168 K/mcL (140-440); RBC 3.58 M/mcL (4.63-6.08); Red Cell Distribution Width 16.3 % (11.5-14.5); WBC 6.4 K/mcL (4.50-11.00)
[2019-09-23 06:48] LABS: ALT/SGPT 17 U/l (0-40); AST/SGOT 21 U/l (0-37); Albumin 3.2 gm/dL (3.2-5.2); Albumin/Globulin Ratio 1.4 (1.0-2.3); Alkaline Phosphatase 60 U/L (39-117); Bilirubin,Direct < 0.2 mg/dL (0.0-0.3); Bilirubin,Total 0.2 mg/dL (0.0-1.0); Blood Urea Nitrogen 27 mg/dl (6-20); Calcium 8.8 mg/dl (8.6-10.4); Carbon Dioxide 23 mmol/L (22-30); Chloride 105 mmol/L (96-108); Globulin 2.3 gm/dL (2.2-3.7); Glomerular Filtration Rate 75; Glucose 99 mg/dL (70-105); Lactate Dehydrogenase 230 U/L (94-250); Phosphorous 2.8 mg/dL (2.7-4.5); Triglycerides 87 mg/dl (<150); Uric Acid 2.6 mg/dL (2.5-8.0)
--- NOTE | 2019-09-23 07:27 | XRay Report ---
CLINICAL INFORMATION: Mechanically Ventilated COMPARISON: 09/22/2019 FINDINGS: Mild cardiomegaly is unchanged. Mediastinum and pulmonary vessels are normal. Endotracheal tip is now in satisfactory position 4 cm above the antony. NG tube extends off the edge of the film at least to the gastric body Patchy right perihilar infiltrate is much better aerated on today's exam. There is however, dense consolidative atelectasis in the left lower lobe (retrocardiac region) which has worsened. Small left pleural effusion is unchanged IMPRESSION: 1. Moderate improved aeration in right perihilar infiltrate - now small to moderate 2. Densely consolidated atelectasis of the entire left lower lobe worsening. Small left pleural effusion 3. Endotracheal tube now in satisfactory position. Interpreted and Authenticated by: Eivn Huang 09/23/19
[2019-09-23] MEDS: VANCOMYCIN 1,500 MG in 0.9 % SODIUM CHLORIDE 500 ML IV SCH ×2 (09:42→21:21)
[2019-09-23] MEDS: 0.9 % SODIUM CHLORIDE 1,000 ML IV SCH (09:42)
[2019-09-23] MEDS: GABAPENTIN 300 MG CAPSULE PT SCH ×3 (09:43→21:21)
[2019-09-23] MEDS: FUROSEMIDE 40 MG TABLET PO SCH ×2 (09:43→15:18)
[2019-09-23] MEDS: THIAMINE 100 MG TABLET PO SCH (09:43)
[2019-09-23] MEDS: NYSTATIN 500,000 UNITS/5 ML ORAL.SUSP SSP SCH ×4 (09:43→21:21)
[2019-09-23] MEDS: AMIODARONE HCL 200 MG TABLET PO SCH (09:44)
[2019-09-23] MEDS: ALLOPURINOL 100 MG TABLET PO SCH (09:44)
[2019-09-23] MEDS: POTASSIUM CHLORIDE 20 MEQ PACKET PO SCH ×2 (09:44→21:21)
[2019-09-23] MEDS: CHLORHEXIDINE GLUCONATE 1 ML ORAL.SOL SWABMOUTH SCH ×2 (09:46→21:21)
[2019-09-23] MEDS: MUPIROCIN OINT 2% 22GM TOPICAL SCH ×2 (09:46→21:20)
[2019-09-23] MEDS: SIMVASTATIN 40 MG TABLET PO SCH (09:49)
[2019-09-23] MEDS: LACTOBACILLUS 1 CAPSULE PO SCH ×2 (09:49→21:20)
[2019-09-23] MEDS: SERTRALINE 100 MG TABLET PO SCH (09:49)
[2019-09-23] MEDS: APIXABAN 5 MG TABLET PO SCH ×2 (09:49→21:20)
[2019-09-23] MEDS: methylPREDNISolone SOD SUCC 40 MG/ML VIAL IV SCH (10:32)
[2019-09-23] MEDS ORDERED: LORazepam 2 MG/ML VIAL IV PRN (11:14)
--- NOTE | 2019-09-23 18:15 | Internal Med Progress Note ---
Medical - PN: Subj Patient information: Note initiated : 09/23/19 at 6:08 pm Service Date, if different from initiated Date: [] Patient: Gunner Bliss a 54 y/o M admitted on 09/16/19 for SOB/weakness. Chief Complaint: f/u withdrawal Interval history: 09/16 Mr. Bliss is a 54 year old M Who presents to the hospital for cough and congestion shortness of breath. Patient states about 4 days ago he developed flulike symptoms with headache body aches a cough productive of white sputum. He is complained of fevers and c hills. He also has a pleuritic chest pain. Complained of shortness of breath. He had a poor sleep past few nights because of coughing. In the ED he seemed to build to maintain his saturations but did have a mild tachycardia leukopenia and elevated lactate. Procalcitonin was negative. Flu screen was negative. Chest x-ray shows no infiltrates on the right. Denies any weight gain or increased edema in his legs. 09/17 Coughing still. Has some shortness of breath but is slowly improving. States the DuoNeb treatment helped. Overall feeling a little better. Poor sleep. Did have some diarrhea this morning. [place] a little chilled this morning 09/18 still "feels bad but better". cough nonproductive, dyspnea when walking to bathroom. COOK. 09/19 Patient still has cough productive of solorio sputum. And shortness of breath. Has headache and is sweaty on occasion. This morning when in A. fib RVR between rates of 140-160. IV Lopressor given without result patient put on diltiazem drip. Oxygen need increased during episode. 09/20 Earlier on 09/20-Little after midnight, the patient developed agitation. He pulled out his IVs. He began to experience hallucinations. He was on the CIWA protocol received lorazepam, which seemed to worsen his symptoms. He received a dose of Seroquel orally, however continued to have worsening behavior. He received Zyprexa IM x2. He required restraints for safety. Eventually Police Department was called for security and core cleaner were on scene as well to help manage the patient's behavior. In spite of the above therapies, the patient continued to experience worsening agitation and hallucinations and delirium. He was started on Precedex infusion without significant effect, which was stopped after 30 minutes due to the development of hypotension. Ketamine was considered, however patient's blood pressure was on the low side at that time. During this, Ambriz catheter was placed with about 300 mils of urine return, ruling out significant bladder discomfort as a cause of agitation. Blood gas showed no hypercarbia, did show hypoxia which was pre-existing. There are no apparent new complaints of pain prior to this onset. Due to worsening clinical status, decision was made to intubate. Dr. Hendrickson from the emergency department performed the intubation using glide scope. Patient received 2 mg of Versed with some sedative effect, post intubation required 2 mg further Versed prior to sedation via infusion. Daytime course 09/20-when intubation, the patient required significant doses of propofol and Versed to maintain adequate sedation. Blood pressure rebounded following intubation, then decreased with sedation. Eventually required further boluses and subsequently initiation of norepinephrine via a peripheral line. Labs from post intubation showed acute kidney injury, which had improved by the afternoon. Urine output picked up with improvement in blood pressure. Antibiotic coverage expanded to include vancomycin and Zosyn, continuing doxycycline for atypical coverage given his extensive and worsening bilateral infiltrates. 09/21 Has remained intubated, sedated with propofol and Versed. Still becomes agitated when sedation is lightened. No longer requiring pressors to maintain blood pressure while sedated. Chest x-ray is improved this morning. P/F remaining generally stable. Has started tube feeds for nutrition. 09/22 Patient's visited yesterday. She provided further history that the patient has significant intake of hard liquor, starting to drink in the morning, consuming all day long, arising at night to have further intake. Remains on diltiazem drip for A. fib rate control. Not requiring pressors for blood pressure while sedated. On propofol with adjunct midazolam for sedation. Still quite agitated whenever sedation is lightened. Also receiving chlordiazepoxide per tube for withdrawal symptoms. Ventilator stable, P/F ratio in the 120s. Radiograph stable. 09/23/2019 Patient remains sedated. He is requiring less Versed as an adjunct to the propofol. Was able to follow some commands earlier today them started becoming more agitated and trying to pull out lines and tubes through the restraints. Also receiving chlordiazepoxide via the tube for withdrawal symptoms. ABG this morning with PaO2 of 41, improved with PEEP increased to 15 and FiO2 to 0.60. Converted from A. fib to normal sinus rhythm overnight. - Constitutional Vitals: Vital Signs Temp Pulse Resp BP Pulse Ox 97.5 F 79 17 128/74 96 09/23/19 18:01 09/23/19 17:15 09/23/19 17:15 09/23/19 18:01 09/23/19 18:04 Period Temp Pulse Resp BP Sys/Bunch Pulse Ox Last 24 Hr 97.5 F-97.9 F 79-84 15-24 119-148/66-107 82-97 Intake and Output 09/23/19 09/23/19 09/23/19 05:59 13:59 21:59 Intake Total 1725 2647 835 Output Total 475 1543 1867 Balance 1250 1104 -1032 Intake & Output: Intake & Output 09/23/19 09/23/19 09/23/19 05:59 13:59 21:59 Intake Total 1725 2647 835 Output Total 475 1543 1867 Balance 1250 1104 -1032 Intake: IV 1205 2013 338 Sodium Chloride 0.9% 1,000 ml @ 1081 50 mls/hr IV .Q20H MIRANDA Rx#: [id number] Sodium Chloride 0.9% 250 ml @ 250 217 20 mls/hr IV .[id number] MIRANDA Rx#: [id number] Cardizem 125 mg In Dextrose 5% 111 in Water 100 ml @ 5 MG/HR 5 mls /hr IV Q8H MIRANDA Rx#:[id number] Versed 50 mg In Sodium Chloride 101 50 21 0.9% 90 ml @ 0.02 MG/KG/HR 6. 007 mls/hr IV Q6H MIRANDA Rx#: [id number] Zosyn 3.375 gm In Dextrose 5% 50 100 in Water 50 ml @ 100 mls/hr IV Q6H MIRANDA Rx#:[id number] Diprivan 1,000 mg In Premix 1 193 283 100 Bag @ 5 MCG/KG/MIN 4.506 mls/hr IV .[id number] MIRANDA Rx#:[id number] Vancomycin 1,500 mg In Sodium 500 500 Chloride 0.9% 500 ml @ 333.3 mls/hr IV Q12H MIRANDA Rx#: [id number] Tube Feeding 470 543 467 GI Tube Flush 50 90 30 Output: Urine Catheter Amount 360 6554 5957 Void Amount 115 Other: Urine Appearance Sediment Sediment Uretheral (Ambriz) Sediment Sediment Sediment Urine Color Light Nalini Light Nalini Uretheral (Ambriz) Light Nalini Light Nalini Straw Urine Odor Normal Stool Size Small Stool Color Brown Stool Consistency Soft # of times incontinent of 1 Bowels Exam: General: Sedated HEENT: Pupils equal, OG and ET tubes in place. Chest: Diminished breath sounds on the right, clear on the left anterior/lateral farooq Cardiovascular: Regular, trace edema Abdomen: Obese, soft, no apparent tenderness Neuro: Sedated Medical - PN: Obj Da - Labs CBC & Chem 7: 09/23/19 04:00 09/23/19 04:00 Labs: Abnormal Lab Results 09/23/19 09/23/19 09/22/19 04:00 04:00 03:58 RBC 3.58 L Hgb 11.0 L Hct 34.3 L RDW 16.3 H Plt Count MPV 11.2 H Gran % Lymph % (Auto) 11.6 L Boyd % (Auto) 17.8 H Lymph # (Auto) 0.74 L Boyd # (Auto) 1.14 H Carbon Dioxide BUN 27 H 23 H Glucose 108 H Calcium 8.5 L Lactate Dehydrogenase Total Protein 5.5 L 5.3 L Albumin 2.9 L Mycoplasma pneumon IgG 09/22/19 09/21/19 09/21/19 03:58 03:55 03:55 RBC 3.44 L 3.61 L Hgb 10.6 L 11.4 L Hct 32.6 L 34.3 L RDW 18.5 H 18.2 H Plt Count 125 L 97 L MPV Gran % 85.5 H Lymph % (Auto) 9.7 L 6.2 L Boyd % (Auto) 12.5 H Lymph # (Auto) 0.5 L 0.3 L Boyd # (Auto) Carbon Dioxide 21 L BUN Glucose 123 H Calcium Lactate Dehydrogenase 251 H Total Protein 5.7 L Albumin Mycoplasma pneumon IgG 09/16/19 19:00 RBC Hgb Hct RDW Plt Count MPV Gran % Lymph % (Auto) Boyd % (Auto) Lymph # (Auto) Boyd # (Auto) Carbon Dioxide BUN Glucose Calcium Lactate Dehydrogenase Total Protein Albumin Mycoplasma pneumon IgG 1.14 A Meds: Medications Acetaminophen (Tylenol) 650 mg PO Q6HP PRN PRN Reason: PAIN/FEVER > 101 Last Admin: 09/20/19 14:28 Dose: 650 mg Documented by: Hydrocodone Bitart/Acetaminophen ([place] 5/325mg) 1 tab PO Q4-6HP PRN; Protocol PRN Reason: Per Pain Protocol Last Admin: 09/23/19 00:46 Dose: 1 tab Documented by: Allopurinol (Zyloprim) 200 mg PO QDAY [facility] Last Admin: 09/23/19 09:44 Dose: 200 mg Documented by: Amiodarone HCl (Cordarone) 200 mg PO QDAY [facility] Last Admin: 09/23/19 09:44 Dose: 200 mg Documented by: Apixaban (Eliquis) 5 mg PO BID [facility] Last Admin: 09/23/19 09:49 Dose: 5 mg Documented by: Chlordiazepoxide HCl (Librium) 25 mg PO Q4HP PRN PRN Reason: Alcohol Withdrawal Last Admin: 09/23/19 10:24 Dose: 25 mg Documented by: Chlorhexidine Gluconate (Peridex) 15 ml SWABMOUTH BID [facility] Last Admin: 09/23/19 09:46 Dose: 15 ml Documented by: Furosemide (Lasix) 40 mg PO BID@0900,1500 [facility] Last Admin: 09/23/19 15:18 Dose: 40 mg Documented by: Gabapentin (Neurontin) 300 mg PT TID [facility] Last Admin: 09/23/19 15:19 Dose: 300 mg Documented by: Heparin Sodium (Porcine) (Heparin Flush) 2 ml IV Q12 [facility] Last Admin: 09/23/19 09:47 Dose: 2 ml Documented by: Heparin Sodium (Porcine) (Heparin Flush) 2 ml IV Q12 [facility] Last Admin: 09/23/19 09:47 Dose: Not Given Documented by: Potassium Chloride 40 meq/ (Dextrose) 520 mls @ 130 mls/hr IV UD PRN PRN Reason: Potassium < 3 Magnesium Sulfate (Magnesium Sulfate) 2 gm in 50 mls @ 50 mls/hr IV UD PRN PRN Reason: Magnesium </= 1.6 Last Infusion: 09/20/19 09:01 Dose: Infused Documented by: Sodium Chloride (Sodium Chloride 0.9%) 250 mls @ 20 mls/hr IV .[id number] [facility] Last Admin: 09/23/19 09:30 Dose: Not Given Documented by: Propofol 1,000 mg/ Premix 100 mls @ 4.506 mls/hr IV .[id number] MIRANDA; Protocol Last Admin: 09/23/19 16:06 Dose: 35 mcg/kg/min, 31.539 mls/hr Documented by: Sodium Chloride (Sodium Chloride 0.9%) 250 mls @ 20 mls/hr IV .[id number] [facility] Last Admin: 09/23/19 15:19 Dose: 20 mls/hr Documented by: Midazolam HCl 50 mg/ Sodium (Chloride) 100 mls @ 6.007 mls/hr IV Q6H MIRANDA; Protocol Last Admin: 09/23/19 15:21 Dose: 0.02 mg/kg/hr, 5 mls/hr Documented by: Piperacillin Sod/Tazobactam (Sod 3.375 gm/ Dextrose) 50 mls @ 100 mls/hr IV Q6H MIRANDA; Protocol Last Admin: 09/23/19 17:51 Dose: 100 mls/hr Documented by: Vancomycin HCl 1,500 mg/ (Sodium Chloride) 500 mls @ 333.3 mls/hr IV Q12H [facility] Last Infusion: 09/23/19 11:49 Dose: Infused Documented by: Diltiazem HCl 125 mg/ Dextrose 125 mls @ 5 mls/hr IV Q8H MIRANDA; Protocol Last Admin: 09/23/19 15:53 Dose: Not Given Documented by: Norepinephrine Bitartrate 16 (mg/ Sodium Chloride) 250 mls @ 9.375 mls/hr IV Q24HP PRN; Protocol PRN Reason: Hypotension Ipratropium [place] (Atrovent) 2.5 ml NEB Q8H [facility]IRANDA Last Admin: 09/23/19 17:06 Dose: 2.5 ml Documented by: Labetalol HCl (Trandate) 0 mg IV Q2HP PRN PRN Reason: Hypertension Last Admin: 09/21/19 08:35 Dose: 10 mg Documented by: Lactobacillus Rhamnosus (Culturelle) 1 cap PO BID [facility] Last Admin: 09/23/19 09:49 Dose: 1 cap Documented by: Levalbuterol HCl (Xopenex) 1.25 mg NEB Q4HP PRN PRN Reason: Shortness Of Breath Lorazepam (Ativan) 1 mg IV Q2HP PRN PRN Reason: Withdrawl Symptoms Melatonin (Melatonin 3mg Tablet) 3 mg PO HSP PRN PRN Reason: Insomnia Methylprednisolone Sodium Succinate (Solu-Medrol) 40 mg IV DAILY [facility] Last Admin: 09/23/19 10:32 Dose: 40 mg Documented by: Mupirocin (Bactroban Oint 2%) 1 dose TOPICAL BID [facility] Last Admin: 09/23/19 09:46 Dose: 1 dose Documented by: Nystatin (Nystatin) 500,000 units SSP QID [facility] Last Admin: 09/23/19 17:05 Dose: 500,000 units Documented by: Ondansetron HCl (Zofran) 4 mg IV Q4HP PRN PRN Reason: Nausea And Vomiting Polyethylene Glycol (Miralax) 17 gm PO DAILYP PRN PRN Reason: Constipation Potassium Chloride (Kdur) 40 meq PO UD PRN PRN Reason: Potssium is 3-3.5 Last Admin: 09/22/19 11:57 Dose: 40 meq Documented by: Potassium Chloride (Kdur) 40 meq PO UD PRN PRN Reason: Potassium < 3 Potassium Chloride (Klor-Con) 20 meq PO BID [facility] Last Admin: 09/23/19 09:44 Dose: 20 meq Documented by: Senna (Senokot) 2 tab PO DAILYP PRN PRN Reason: Constipation Sertraline HCl (Zoloft) 200 mg PO QDAY [facility] Last Admin: 09/23/19 09:49 Dose: 200 mg Documented by: Simvastatin (Zocor) 40 mg PO QAM [facility] Last Admin: 09/23/19 09:49 Dose: 40 mg Documented by: Sodium Chloride (Saline Flush) 10 ml IV Q8 [facility] Last Admin: 09/23/19 14:04 Dose: 10 ml Documented by: Sodium Chloride (Saline Flush) 10 ml IV UD PRN PRN Reason: FLUSH Thiamine HCl (Vitamin B1) 100 mg PO DAILY [facility] Last Admin: 09/23/19 09:43 Dose: 100 mg Documented by: Vancomycin HCl (Vancomycin Per Pharmacy) 1 order IV UD [facility]; Protocol - Impressions Telemetry: Normal sinus rhythm - Imaging and cardiology Chest x-ray Status: image reviewed by me Additional comments: IMPRESSION: 1. Moderate improved aeration in right perihilar infiltrate - now small to moderate 2. Densely consolidated atelectasis of the entire left lower lobe worsening. Small left pleural effusion 3. Endotracheal tube now in satisfactory position. - ABG Interpretation ABG results: First ABG pH 7.44/PCO2 46/PO2 41 ABG after increasing PEEP to 15 and FiO2 to 0.60 7.45/43/80 Medical - PN: A/P - Time Spent With Patient Total time spent is greater than 50% in coordination of care (as documented) at patient's floor/unit and/or counseling patient: Greater than 35 minutes - Narrative A/P Narrative: A/P Delirium, agitation. With further history of significant daily alcohol consumption, this presentation is consistent with severe alcohol withdrawal s yndrome. Remains intubated, requiring propofol, lessening Versed need. Symptoms began a little over 72 hours after admission. Further history from , notes heavy daily consumption of hard liquor, even arising at night for further consumption. -Sedation with propofol, medazepam as secondary agent -Daily wake-up trials and reassessment Continue CIWA protocol, as needed chlordiazepoxide for ongoing withdrawal symptoms Pneumonia. CT 09/19 showed extensive bilateral infiltrates, which worsened on radiographs after intubation. Is positive for human metapneumovirus. Chest x- ray starting to improve in regards to right infiltrate, worsening consolidation/atelectasis at the left base. Mycoplasma IgM negative, IgG positive consistent with prior infection. Doxycycline has been stopped. Sputum culture post intubation without pathogens isolated. Vancomycin and Zosyn for broad-spectrum coverage given progressive radiographic changes -Follow daily chest films COPD with acute exacerbation and acute hypoxic respiratory failure. Initial concern for developing ARDS, PaO2/FiO2 is 74/0.5 = 148. Needed increased PEEP and FiO2 1/1, P/F 133. Radiograph clearer than at time of intubation, less concern for ARDS, however avoiding larger tidal volumes at this time. Oxygen goal saturation 92 to 96% Continue with Solu-Medrol (dose reduced), bronchodilators -Monitor oxygen needs Shock. Resolved. Suspect secondary to medications for sedation, continues to require norepinephrine to maintain adequate mean arterial pressure. Less concern for sepsis, but remains on broadened antibacterials. -Norepinephrine as needed for blood pressure support while sedated. Acute kidney injury. In the setting of delirium and decreased oral intake as well as hypotension. Now resolved. Continue to monitor renal function Leukopenia, thrombocytopenia, suspected secondary to viral infection. Res olving. Monitor Atrial fibrillation. A. fib with RVR, was requiring diltiazem drip as needed for control, now converted to NSR early a.m. 09/23. On Eliquis at baseline as well as amiodarone. Follows with Dr. Kenney. Continue diltiazem for rate control with acute illness Changed to Xopenex as bronchodilator Continue amiodarone Resumed Eliquis now that PICC line is been placed Costochondritis h/o CVA HTN/HLD: BP meds held Obesity SILVIA intolerant to CPAP Depression: Continue home medications CKD: Monitor, avoid nephrotoxins Anemia, chronic: Monitor Depression: Continue home regimen Hypomag/phos/braden: Replete as needed PPx: home eliquis
[2019-09-24] MEDS: DILTIAZEM 125 MG in DEXTROSE 5% IN WATER 100 ML IV SCH ×2 (00:17→11:19)
[2019-09-24] MEDS: PIPERACILLIN SODIUM/TAZOBACTAM 3.375 GM in DEXTROSE 5% IN WATER 50 ML IV SCH ×5 (00:18→23:32)
[2019-09-24] MEDS: IPRATROPIUM 2.5 ML AMPUL.NEB NEB SCH ×3 (01:08→18:38)
[2019-09-24] MEDS: PROPOFOL 1,000 MG in PREMIX 1 BAG IV SCH ×5 (01:35→12:51)
[2019-09-24] MEDS: MIDAZOLAM PF 50 MG in 0.9 % SODIUM CHLORIDE 90 ML IV SCH ×2 (02:13→09:50)
[2019-09-24] MEDS: 0.9 % SODIUM CHLORIDE 10 ML SYRINGE IV SCH ×3 (05:38→22:27)
[2019-09-24 06:46] LABS: Basophils # (Auto) 0.01 K/mcL (0.00-0.30); Basophils % (Auto) 0.2 % (0.0-2.0); Eosinophils # (Auto) 0.01 K/mcL (0.00-0.70); Eosinophils % (Auto) 0.2 % (0.0-7.0); Granulocytes % (Auto) 72.2 % (38.0-78.0); Hematocrit 34.5 % (40.1-51.0); Hemoglobin 10.8 g/dL (13.7-17.5); Lymphocytes # (Auto) 0.77 K/mcL (1.50-4.80); Lymphocytes % (Auto) 13.6 % (15.5-49.0); Mean Cell Volume 97.7 fL (80.0-100.0); Mean Corpuscular HGB Conc 31.3 g/dL (31.0-36.0); Mean Platelet Volume 10.9 fL (7.4-10.4); Monocytes # (Auto) 0.78 K/mcL (0.10-0.90); Monocytes % (Auto) 13.8 % (1.0-12.0); Platelet Count 177 K/mcL (140-440); RBC 3.53 M/mcL (4.63-6.08); Red Cell Distribution Width 16.6 % (11.5-14.5); WBC 5.7 K/mcL (4.50-11.00)
[2019-09-24 06:59] LABS: ALT/SGPT 15 U/l (0-40); AST/SGOT 16 U/l (0-37); Albumin 3.2 gm/dL (3.2-5.2); Albumin/Globulin Ratio 1.3 (1.0-2.3); Alkaline Phosphatase 58 U/L (39-117); Bilirubin,Direct < 0.2 mg/dL (0.0-0.3); Bilirubin,Total 0.2 mg/dL (0.0-1.0); Blood Urea Nitrogen 29 mg/dl (6-20); Calcium 8.9 mg/dl (8.6-10.4); Carbon Dioxide 28 mmol/L (22-30); Chloride 104 mmol/L (96-108); Globulin 2.4 gm/dL (2.2-3.7); Glomerular Filtration Rate 84; Glucose 113 mg/dL (70-105); Lactate Dehydrogenase 175 U/L (94-250); Phosphorous 3.8 mg/dL (2.7-4.5); Triglycerides 74 mg/dl (<150); Uric Acid 2.7 mg/dL (2.5-8.0)
--- NOTE | 2019-09-24 08:08 | XRay Report ---
CLINICAL INFORMATION: Mechanically Ventilated COMPARISON: 09/23/2019 FINDINGS: Endotracheal tube and NG tube remain in stable satisfactory position. Mild cardiomegaly is unchanged. Mediastinum and pulmonary vessels are unremarkable. Large region of dense consolidated atelectasis or, less likely, infiltrate left lower lobe in the retrocardiac region again noted. Small left pleural effusion unchanged. Smaller patchy infiltrate in the right base stable IMPRESSION: 1. Dense consolidation atelectasis or infiltrate in the left lower lobe with small left pleural effusion - unchanged 2. Small patchy right basilar infiltrate or atelectasis - unchanged. 3. Mild cardiomegaly - unchanged Interpreted and Authenticated by: Evin Huang 09/24/19
[2019-09-24] MEDS ORDERED: DILTIAZEM 125 MG in DEXTROSE 5% IN WATER 100 ML IV PRN (08:30)
[2019-09-24] MEDS: GABAPENTIN 300 MG CAPSULE PT SCH ×3 (09:08→20:21)
[2019-09-24] MEDS: POTASSIUM CHLORIDE 20 MEQ PACKET PO SCH ×2 (09:08→20:21)
[2019-09-24] MEDS: POTASSIUM CHLORIDE 40 MEQ in DEXTROSE 5% IN WATER 500 ML IV PRN (09:08)
[2019-09-24] MEDS: VANCOMYCIN 1,500 MG in 0.9 % SODIUM CHLORIDE 500 ML IV SCH (09:08)
[2019-09-24] MEDS: NYSTATIN 500,000 UNITS/5 ML ORAL.SUSP SSP SCH ×4 (09:08→20:20)
[2019-09-24] MEDS: ALLOPURINOL 100 MG TABLET PO SCH (09:09)
[2019-09-24] MEDS: FUROSEMIDE 40 MG TABLET PO SCH ×2 (09:09→15:24)
[2019-09-24] MEDS: AMIODARONE HCL 200 MG TABLET PO SCH (09:09)
[2019-09-24] MEDS: APIXABAN 5 MG TABLET PO SCH ×2 (09:09→20:21)
[2019-09-24] MEDS: SIMVASTATIN 40 MG TABLET PO SCH (09:09)
[2019-09-24] MEDS: SERTRALINE 100 MG TABLET PO SCH (09:09)
[2019-09-24] MEDS: LACTOBACILLUS 1 CAPSULE PO SCH ×2 (09:09→20:21)
[2019-09-24] MEDS: THIAMINE 100 MG TABLET PO SCH (09:09)
[2019-09-24] MEDS: chlordiazePOXIDE 25 MG CAPSULE PO PRN (09:15)
[2019-09-24] MEDS: methylPREDNISolone SOD SUCC 40 MG/ML VIAL IV SCH (09:46)
[2019-09-24] MEDS: MUPIROCIN OINT 2% 22GM TOPICAL SCH ×2 (10:13→20:22)
[2019-09-24] MEDS: CHLORHEXIDINE GLUCONATE 1 ML ORAL.SOL SWABMOUTH SCH ×2 (10:13→20:22)
[2019-09-24] MEDS: DEXMEDETOMIDINE 400 MCG in PREMIX 1 BAG IV SCH ×2 (10:22→19:59)
[2019-09-24] MEDS: 0.9 % SODIUM CHLORIDE 250 ML IV SCH ×2 (11:19→15:13)
[2019-09-24] MEDS ORDERED: PROPOFOL 100 ML IV ONE (12:47)
--- NOTE | 2019-09-24 13:27 | Internal Med Progress Note ---
Medical - PN: Subj Patient information: Note initiated : 09/24/19 at 1:24 pm Service Date, if different from initiated Date: [] Patient: Gunner Bliss a 54 y/o M admitted on 09/16/19 for SOB/weakness. Chief Complaint: follow-up withdrawal Interval history: 09/16 Mr. Bliss is a 54 year old M Who presents to the hospital for cough and congestion shortness of breath. Patient states about 4 days ago he developed flulike symptoms with headache body aches a cough productive of white sputum. He is complained of fevers and chills. He also has a pleuritic chest pain. Complained of shortness of breath. He had a poor sleep past few nights because of coughing. In the ED he seemed to build to maintain his saturations but did have a mild tachycardia leukopenia and elevated lactate. Procalcitonin was negative. Flu screen was negative. Chest x-ray shows no infiltrates on the right. Denies any weight gain or increased edema in his legs. 09/17 Coughing still. Has some shortness of breath but is slowly improving. States the DuoNeb treatment helped. Overall feeling a little better. Poor sleep. Did have some diarrhea this morning. [place] a little chilled this morning 09/18 still "feels bad but better". cough nonproductive, dyspnea when walking to bathroom. COOK. 09/19 Patient still has cough productive of solorio sputum. And shortness of breath. Has headache and is sweaty on occasion. This morning when in A. fib RVR between rates of 140-160. IV Lopressor given without result patient put on diltiazem drip. Oxygen need increased during episode. 09/20 Earlier on 09/20-Little after midnight, the patient developed agitation. He pulled out his IVs. He began to experience hallucinations. He was on the CIWA protocol received lorazepam, which seemed to worsen his symptoms. He received a dose of Seroquel orally, however continued to have worsening behavior. He received Zyprexa IM x2. He required restraints for safety. Eventually Police Department was called for security and precision millwright were on scene as well to help manage the patient's behavior. In spite of the above therapies, the patient continued to experience worsening agitation and hallucinations and delirium. He was started on Precedex infusion without significant effect, which was stopped after 30 minutes due to the development of hypotension. Ketamine was considered, however patient's blood pressure was on the low side at that time. During this, Ambriz catheter was placed with about 300 mils of urine return, ruling out significant bladder discomfort as a cause of agitation. Blood gas showed no hypercarbia, did show hypoxia which was pre-existing. There are no apparent new complaints of pain prior to this onset. Due to worsening clinical status, decision was made to intubate. Dr. Hendrickson from the emergency department performed the intubation using glide scope. Patient received 2 mg of Versed with some sedative effect, post intubation required 2 mg further Versed prior to sedation via infusion. Daytime course 09/20-when intubation, the patient required significant doses of propofol and Versed to maintain adequate sedation. Blood pressure rebounded following intubation, then decreased with sedation. Eventually required further boluses and subsequently initiation of norepinephrine via a peripheral line. Labs from post intubation showed acute kidney injury, which had improved by the afternoon. Urine output picked up with improvement in blood pressure. Antibiotic coverage expanded to include vancomycin and Zosyn, continuing doxycycline for atypical coverage given his extensive and worsening bilateral i nfiltrates. 09/21 Has remained intubated, sedated with propofol and Versed. Still becomes agitated when sedation is lightened. No longer requiring pressors to maintain blood pressure while sedated. Chest x-ray is improved this morning. P/F remaining generally stable. Has started tube feeds for nutrition. 09/22 Patient's visited yesterday. She provided further history that the patient has significant intake of hard liquor, starting to drink in the morning, consuming all day long, arising at night to have further intake. Remains on diltiazem drip for A. fib rate control. Not requiring pressors for blood pressure while sedated. On propofol with adjunct midazolam for sedation. Still quite agitated whenever sedation is lightened. Also receiving chlordiazepoxide per tube for withdrawal symptoms. Ventilator stable, P/F ratio in the 120s. Radiograph stable. 09/23/2019 Patient remains sedated. He is requiring less Versed as an adjunct to the propofol. Was able to follow some commands earlier today them started becoming more agitated and trying to pull out lines and tubes through the restraints. Also receiving chlordiazepoxide via the tube for withdrawal symptoms. ABG this morning with PaO2 of 41, improved with PEEP increased to 15 and FiO2 to 0.60. Converted from A. fib to normal sinus rhythm overnight. 09/24 Patient remains intubated. Sedation is lightened, no longer on Versed infusion. Still requiring propofol, however, when lightened able to follow some dir ections, though still tends to want to pull on lines and tubes. Continues to receive chlordiazepoxide via an NG tube for withdrawal symptoms. Still with significant P/F ratio, remains on 60% FiO2. Updated his at bedside today. - Constitutional Vitals: Vital Signs Temp Pulse Resp BP Pulse Ox 96.6 F L 66 16 130/80 92 09/24/19 12:53 09/24/19 11:09 09/24/19 13:11 09/24/19 13:01 09/24/19 13:11 Period Temp Pulse Resp BP Sys/Bunch Pulse Ox Last 24 Hr 96.6 F-98.6 F 66-79 13-20 123-168/66-93 83-98 Intake and Output 09/23/19 09/24/19 09/24/19 21:59 05:59 13:59 Intake Total 1018 1888 1000 Output Total 2357 525 1472 Balance -1339 1363 -472 Weight 339 lb 3.2 oz Intake & Output: Intake & Output 09/23/19 09/24/19 09/24/19 21:59 05:59 13:59 Intake Total 1018 1888 1000 Output Total 2357 525 1472 Balance -1339 1363 -472 Weight 339 lb 3.2 oz Intake: IV 521 1039 869 Sodium Chloride 0.9% 250 ml @ 217 156 20 mls/hr IV .[id number] [facility] Rx#: [id number] Precedex 400 Mcg/100 ml 17 Dextrose 400 Mcg In Premix 1 Bag @ 0.2 MCG/KG/HR 7.693 mls/ hr IV .Q13H [facility] Rx#:[id number] Versed 50 mg In Sodium Chloride 54 1 0.9% 90 ml @ 0.02 MG/KG/HR 6. 007 mls/hr IV Q6H [facility] Rx#: [id number] Zosyn 3.375 gm In Dextrose 5% 50 50 100 in Water 50 ml @ 100 mls/hr IV Q6H [facility] Rx#:[id number] Diprivan 1,000 mg In Premix 1 200 332 252 Bag @ 5 MCG/KG/MIN 4.506 mls/hr IV .[id number] [facility] Rx#:[id number] Vancomycin 1,500 mg In Sodium 500 500 Chloride 0.9% 500 ml @ 333.3 mls/hr IV Q12H [facility] Rx#: [id number] Tube Feeding 467 759 131 GI Tube Flush 30 90 Output: Urine Catheter Amount 9003 525 1472 Other: Urine Appearance Clear Clear Uretheral (Ambriz) Clear Clear Clear Urine Color Light Nalini Light Nalini Uretheral (Ambriz) Light Nalini Light Nalini Light Nailni Urine Odor Normal Stool Size Moderate Stool Color Brown Stool Consistency Loose # of times incontinent of 1 Bowels Exam: General: , intubated, under light sedation. Chest: Diminished bilaterally, no wheezes or rhonchi. Cardiovascular: Regular, remains in NSR on telemetry. Abdomen: Obese, soft Neuro: Patient is sedated, moves all extremities, pupils equal Medical - PN: Obj Da - Labs CBC & Chem 7: 09/24/19 04:14 09/24/19 04:14 Labs: Abnormal Lab Results 09/24/19 09/24/19 09/23/19 04:14 04:14 04:00 RBC 3.53 L Hgb 10.8 L Hct 34.5 L RDW 16.6 H Plt Count MPV 10.9 H Lymph % (Auto) 13.6 L [place] % (Auto) 13.8 H Lymph # (Auto) 0.77 L [place] # (Auto) Sodium 146 H Potassium 2.9 L* BUN 29 H 27 H Glucose 113 H Calcium Total Protein 5.6 L 5.5 L Albumin Mycoplasma pneumon IgG 09/23/19 09/22/19 09/22/19 04:00 03:58 03:58 RBC 3.58 L 3.44 L Hgb 11.0 L 10.6 L Hct 34.3 L 32.6 L RDW 16.3 H 18.5 H Plt Count 125 L MPV 11.2 H Lymph % (Auto) 11.6 L 9.7 L [place] % (Auto) 17.8 H 12.5 H Lymph # (Auto) 0.74 L 0.5 L [place] # (Auto) 1.14 H Sodium Potassium BUN 23 H Glucose 108 H Calcium 8.5 L Total Protein 5.3 L Albumin 2.9 L Mycoplasma pneumon IgG 09/16/19 19:00 RBC Hgb Hct RDW Plt Count MPV Lymph % (Auto) [place] % (Auto) Lymph # (Auto) [place] # (Auto) Sodium Potassium BUN Glucose Calcium Total Protein Albumin Mycoplasma pneumon IgG 1.14 A Meds: Medications Acetaminophen (Tylenol) 650 mg PO Q6HP PRN PRN Reason: PAIN/FEVER > 101 Last Admin: 09/20/19 14:28 Dose: 650 mg Documented by: Hydrocodone Bitart/Acetaminophen ([place] 5/325mg) 1 tab PO Q4-6HP PRN; Protocol PRN Reason: Per Pain Protocol Last Admin: 09/23/19 00:46 Dose: 1 tab Documented by: Allopurinol (Zyloprim) 200 mg PO QDAY [facility] Last Admin: 09/24/19 09:09 Dose: 200 mg Documented by: Amiodarone HCl (Cordarone) 200 mg PO QDAY [facility] Last Admin: 09/24/19 09:09 Dose: 200 mg Documented by: Apixaban (Eliquis) 5 mg PO BID [facility] Last Admin: 09/24/19 09:09 Dose: 5 mg Documented by: Chlordiazepoxide HCl (Librium) 25 mg PO Q4HP PRN PRN Reason: Alcohol Withdrawal Last Admin: 09/24/19 09:15 Dose: 25 mg Documented by: Chlorhexidine Gluconate (Peridex) 15 ml SWABMOUTH BID [facility] Last Admin: 09/24/19 10:13 Dose: 15 ml Documented by: Furosemide (Lasix) 40 mg PO BID@0900,1500 [facility] Last Admin: 09/24/19 09:09 Dose: 40 mg Documented by: Gabapentin (Neurontin) 300 mg PT TID [facility] Last Admin: 09/24/19 09:08 Dose: 300 mg Documented by: Heparin Sodium (Porcine) (Heparin Flush) 2 ml IV Q12 [facility] Last Admin: 09/24/19 10:13 Dose: 2 ml Documented by: Heparin Sodium (Porcine) (Heparin Flush) 2 ml IV Q12 [facility] Last Admin: 09/24/19 09:51 Dose: Not Given Documented by: Potassium Chloride 40 meq/ (Dextrose) 520 mls @ 130 mls/hr IV UD PRN PRN Reason: Potassium < 3 Last Admin: 09/24/19 09:08 Dose: 130 mls/hr Documented by: Magnesium Sulfate (Magnesium Sulfate) 2 gm in 50 mls @ 50 mls/hr IV UD PRN PRN Reason: Magnesium </= 1.6 Last Infusion: 09/20/19 09:01 Dose: Infused Documented by: Propofol 1,000 mg/ Premix 100 mls @ 4.506 mls/hr IV .[id number] [facility]; Protocol Last Titration: 09/24/19 12:57 Dose: 30 mcg/kg/min, 27.033 mls/hr Documented by: Sodium Chloride (Sodium Chloride 0.9%) 250 mls @ 20 mls/hr IV .[id number] [facility] Last Infusion: 09/23/19 23:08 Dose: 0 mls/hr Documented by: Piperacillin Sod/Tazobactam (Sod 3.375 gm/ Dextrose) 50 mls @ 100 mls/hr IV Q6H [facility]; Protocol Stop: 09/25/19 06:01 Last Infusion: 09/24/19 12:41 Dose: Infused Documented by: Norepinephrine Bitartrate 16 (mg/ Sodium Chloride) 250 mls @ 9.375 mls/hr IV Q24HP PRN; Protocol PRN Reason: Hypotension Diltiazem HCl 125 mg/ Dextrose 125 mls @ 5 mls/hr IV Q8HP PRN; Protocol PRN Reason: Tachyarrhythmias Dexmedetomidine HCl 400 mcg/ (Premix) 100 mls @ 7.693 mls/hr IV .Q13H [facility]; Protocol Last Titration: 09/24/19 12:58 Dose: 0.2 mcg/kg/hr, 7.693 mls/hr Documented by: Ipratropium [place] (Atrovent) 2.5 ml NEB Q8H [facility] Last Admin: 09/24/19 10:53 Dose: 2.5 ml Documented by: Labetalol HCl (Trandate) 0 mg IV Q2HP PRN PRN Reason: Hypertension Last Admin: 09/21/19 08:35 Dose: 10 mg Documented by: Lactobacillus Rhamnosus (Culturelle) 1 cap PO BID [facility] Last Admin: 09/24/19 09:09 Dose: 1 cap Documented by: Levalbuterol HCl (Xopenex) 1.25 mg NEB Q4HP PRN PRN Reason: Shortness Of Breath Lorazepam (Ativan) 1 mg IV Q2HP PRN PRN Reason: Withdrawl Symptoms Last Admin: 09/24/19 01:56 Dose: 1 mg Documented by: Melatonin (Melatonin 3mg Tablet) 3 mg PO HSP PRN PRN Reason: Insomnia Methylprednisolone Sodium Succinate (Solu-Medrol) 40 mg IV DAILY [facility] Last Admin: 09/24/19 09:46 Dose: 40 mg Documented by: Mupirocin (Bactroban Oint 2%) 1 dose TOPICAL BID [facility] Last Admin: 09/24/19 10:13 Dose: 1 dose Documented by: Nystatin (Nystatin) 500,000 units SSP QID [facility] Last Admin: 09/24/19 09:08 Dose: 500,000 units Documented by: Ondansetron HCl (Zofran) 4 mg IV Q4HP PRN PRN Reason: Nausea And Vomiting Polyethylene Glycol (Miralax) 17 gm PO DAILYP PRN PRN Reason: Constipation Potassium Chloride (Kdur) 40 meq PO UD PRN PRN Reason: Potssium is 3-3.5 Last Admin: 09/22/19 11:57 Dose: 40 meq Documented by: Potassium Chloride (Kdur) 40 meq PO UD PRN PRN Reason: Potassium < 3 Potassium Chloride (Klor-Con) 20 meq PO BID [facility] Last Admin: 09/24/19 09:08 Dose: 20 meq Documented by: Senna (Senokot) 2 tab PO DAILYP PRN PRN Reason: Constipation Sertraline HCl (Zoloft) 200 mg PO QDAY [facility] Last Admin: 09/24/19 09:09 Dose: 200 mg Documented by: Simvastatin (Zocor) 40 mg PO QAM [facility] Last Admin: 09/24/19 09:09 Dose: 40 mg Documented by: Sodium Chloride (Saline Flush) 10 ml IV Q8 [facility] Last Admin: 09/24/19 05:38 Dose: 10 ml Documented by: Sodium Chloride (Saline Flush) 10 ml IV UD PRN PRN Reason: FLUSH Thiamine HCl (Vitamin B1) 100 mg PO DAILY [facility] Last Admin: 09/24/19 09:09 Dose: 100 mg Documented by: - Imaging and cardiology Chest x-ray Status: image reviewed by me Additional comments: IMPRESSION: 1. Dense consolidation atelectasis or infiltrate in the left lower lobe with small left pleural effusion - unchanged 2. Small patchy right basilar infiltrate or atelectasis - unchanged. 3. Mild cardiomegaly - unchanged Medical - PN: A/P - Time Spent With Patient Total time spent is greater than 50% in coordination of care (as documented) at patient's floor/unit and/or counseling patient: Greater than 35 minutes - Narrative A/P Narrative: A/P Delirium, agitation. With further history of significant daily alcohol consump tion, this presentation is consistent with severe alcohol withdrawal syndrome. Sedation requirements improving, Versed has been weaned off. Still requiring propofol. Symptoms began a little over 72 hours after admission. Further history from , notes heavy daily consumption of hard liquor, even arising at night for further consumption. -Begin Precedex, attempt to wean propofol further so as to allow for control of ventilator associated discomfort in attempting weaning parameters in the next 24 hours -Daily wake-up trials and reassessment -Continue CIWA protocol, as needed chlordiazepoxide and IV lorazepam for ongoing withdrawal symptoms Pneumonia. CT 09/19 showed extensive bilateral infiltrates, which worsened on radiographs after intubation. Is positive for human metapneumovirus. Chest x- ray starting to improve in regards to right infiltrate, worsening consolidation/atelectasis at the left base, stable on 09/24. Mycoplasma IgM negative, IgG positive consistent with prior infection. Doxycycline has been stopped. Sputum culture post intubation without pathogens isolated. Vancomycin and Zosyn initially for broad-spectrum coverage given progressive radiographic changes. Discontinue vancomycin. Discontinue Zosyn after 5 days -Follow daily chest films COPD with acute exacerbation and acute hypoxic respiratory failure. Initial concern for developing ARDS, PaO2/FiO2 is 74/0.5 = 148. Needed increased PEEP and FiO2 1/1, P/F 133. Radiograph clearer than at time of intubation, less concern for ARDS. Given dense atelectasis at left base, now well ventilated with increased tidal volumes cause concern for ARDS is lessening. Oxygen goal saturation 92 to 96% Weaning parameters when able to fully follow commands Continue with Solu-Medrol (dose reduced), bronchodilators -Monitor oxygen needs Shock. Resolved. Suspect secondary to medications for sedation, continues to require norepinephrine to maintain adequate mean arterial pressure. Less concern for sepsis, but remains on broadened antibacterials. -Norepinephrine as needed for blood pressure support while sedated. Acute kidney injury. In the setting of delirium and decreased oral intake as well as hypotension. Now resolved. Continue to monitor renal function Leukopenia, thrombocytopenia, suspected secondary to viral infection. Resolved. Monitor Atrial fibrillation. Resolved. A. fib with RVR, was requiring diltiazem drip as needed for control, now converted to NSR early a.m. 09/23. On Eliquis at baseline as well as amiodarone. Follows with Dr. Kenney. Changed to Xopenex as bronchodilator Continue amiodarone Resumed Eliquis now that PICC line is been placed Costochondritis h/o CVA HTN/HLD: BP meds held Obesity SILVIA intolerant to CPAP Depression: Continue home medications CKD: Monitor, avoid nephrotoxins Anemia, chronic: Monitor Depression: Continue home regimen Hypomag/phos/braden: Replete as needed PPx: home eliquis
--- NOTE | 2019-09-24 14:04 | Internal Med Progress Note ---
Medical - PN: Subj Patient information: Note initiated : 09/24/19 at 1:57 pm Service Date, if different from initiated Date: [] Patient: Gunner Bliss a 54 y/o M admitted on 09/16/19 for SOB/weakness. Chief Complaint: [] Interval history: 09/16 Mr. Blsis is a 54 year old M Who presents to the hospital for cough and congestion shortness of breath. Patient states about 4 days ago he developed flulike symptoms with headache body aches a cough productive of white sputum. He is complained of fevers and chills. He also has a pleuritic chest pain. Complained of shortness of breath. He had a poor sleep past few nights because of coughing. In the ED he seemed to build to maintain his saturations but did have a mild tachycardia leukopenia and elevated lactate. Procalcitonin was negative. Flu screen was negative. Chest x-ray shows no infiltrates on the right. Denies any weight gain or increased edema in his legs. 09/17 Coughing still. Has some shortness of breath but is slowly improving. States the DuoNeb treatment helped. Overall feeling a little better. Poor sleep. Did have some diarrhea this morning. [place] a little chilled this morning 09/18 still "feels bad but better". cough nonproductive, dyspnea when walking to bathroom. COOK. 09/19 Patient still has cough productive of solorio sputum. And shortness of breath. Has headache and is sweaty on occasion. This morning when in A. fib RVR between rates of 140-160. IV Lopressor given without result patient put on diltiazem drip. Oxygen need increased during episode. 09/20 Earlier on 09/20-Little after midnight, the patient developed agitation. He pulled out his IVs. He began to experience hallucinations. He was on the CIWA protocol received lorazepam, which seemed to worsen his symptoms. He received a dose of Seroquel orally, however continued to have worsening behavior. He received Zyprexa IM x2. He required restraints for safety. Eventually Police Department was called for security and shell plater were on scene as well to help manage the patient's behavior. In spite of the above therapies, the patient continued to experience worsening agitation and hallucinations and delirium. He was started on Precedex infusion without significant effect, which was stopped after 30 minutes due to the development of hypotension. Ketamine was considered, however patient's blood pressure was on the low side at that time. During this, Ambriz catheter was placed with about 300 mils of urine return, ruling out significant bladder discomfort as a cause of agitation. Blood gas showed no hypercarbia, did show hypoxia which was pre-existing. There are no apparent new complaints of pain prior to this onset. Due to worsening clinical status, decision was made to intubate. Dr. Hendrickson from the emergency department performed the intubation using glide scope. Patient received 2 mg of Versed with some sedative effect, post intubation required 2 mg further Versed prior to sedation via infusion. Daytime course 09/20-when intubation, the patient required significant doses of propofol and Versed to maintain adequate sedation. Blood pressure rebounded following intubation, then decreased with sedation. Eventually required further boluses and subsequently initiation of norepinephrine via a peripheral line. Labs from post intubation showed acute kidney injury, which had improved by the afternoon. Urine output picked up with improvement in blood pressure. Antibiotic coverage expanded to include vancomycin and Zosyn, continuing doxycycline for atypical coverage given his extensive and worsening bilateral infiltrates. 09/21 Has remained intubated, sedated with propofol and Versed. Still becomes agitated when sedation is lightened. No longer requiring pressors to maintain blood pressure while sedated. Chest x-ray is improved this morning. P/F remaining generally stable. Has started tube feeds for nutrition. 09/22 Patient's visited yesterday. She provided further history that the patient has significant intake of hard liquor, starting to drink in the morning, consuming all day long, arising at night to have further intake. Remains on diltiazem drip for A. fib rate control. Not requiring pressors for blood pressure while sedated. On propofol with adjunct midazolam for sedation. Still quite agitated whenever sedation is lightened. Also receiving chlordiazepoxide per tube for withdrawal symptoms. Ventilator stable, P/F ratio in the 120s. Radiograph stable. 09/23/2019 Patient remains sedated. He is requiring less Versed as an adjunct to the propofol. Was able to follow some commands earlier today them started becoming more agitated and trying to pull out lines and tubes through the restraints. Also receiving chlordiazepoxide via the tube for withdrawal symptoms. ABG this morning with PaO2 of 41, improved with PEEP increased to 15 and FiO2 to 0.60. Converted from A. fib to normal sinus rhythm overnight. 09/24 Patient remains intubated. Sedation is lightened, no longer on Versed infusion. Still requiring propofol, however, when lightened able to follow some directions, though still tends to want to pull on lines and tubes. Continues to receive chlordiazepoxide via an NG tube for withdrawal symptoms. Still with significant P/F ratio, remains on 60% FiO2. Updated his at bedside today. - Constitutional Vitals: Vital Signs Temp Pulse Resp BP Pulse Ox 96.6 F L 66 16 130/80 92 09/24/19 12:53 09/24/19 11:09 09/24/19 13:11 09/24/19 13:01 09/24/19 13:11 Period Temp Pulse Resp BP Sys/Bunch Pulse Ox Last 24 Hr 96.6 F-98.6 F 66-79 13-20 123-168/66-93 83-98 Intake and Output 09/23/19 09/24/19 09/24/19 21:59 05:59 13:59 Intake Total 1018 1888 1000 Output Total 2357 525 1472 Balance -1339 1363 -472 Weight 153.859 kg 153.859 kg Patient Weight 09/25/19 05:59 Weight 153.859 kg Intake & Output: Intake & Output 09/23/19 09/24/19 09/24/19 21:59 05:59 13:59 Intake Total 1018 1888 1000 Output Total 2357 525 1472 Balance -1339 1363 -472 Weight 153.859 kg 153.859 kg Intake: IV 521 1039 869 Sodium Chloride 0.9% 250 ml @ 217 156 20 mls/hr IV .[id number] MIRANDA Rx#: [id number] Precedex 400 Mcg/100 ml 17 Dextrose 400 Mcg In Premix 1 Bag @ 0.2 MCG/KG/HR 7.693 mls/ hr IV .Q13H MIRANDA Rx#:[id number] Versed 50 mg In Sodium Chloride 54 1 0.9% 90 ml @ 0.02 MG/KG/HR 6. 007 mls/hr IV Q6H MIRANDA Rx#: [id number] Zosyn 3.375 gm In Dextrose 5% 50 50 100 in Water 50 ml @ 100 mls/hr IV Q6H MIRANDA Rx#:[id number] Diprivan 1,000 mg In Premix 1 200 332 252 Bag @ 5 MCG/KG/MIN 4.506 mls/hr IV .[id number] MIRANDA Rx#:[id number] Vancomycin 1,500 mg In Sodium 500 500 Chloride 0.9% 500 ml @ 333.3 mls/hr IV Q12H MIRANDA Rx#: [id number] Tube Feeding 467 759 131 GI Tube Flush 30 90 Output: Urine Catheter Amount 5972 525 1472 Other: Urine Appearance Clear Clear Uretheral (Ambriz) Clear Clear Clear Urine Color Light Nalini Light Nalini Uretheral (Ambriz) Light Nalini Light Nalini Light Nalini Urine Odor Normal Stool Size Moderate Stool Color Brown Stool Consistency Loose # of times incontinent of 1 Bowels Exam: General: Intubated and sedated, No acute Distress, obese Eyes/N/T: EOMI, PERRL Head/Neck: neck supple, CV: RRR, No murmurs, normal s1/s2 Pulm: Managed b/l, no wheezing/rhonchi Abd: soft, nontender, +BS x4 Ext: no clubbing/cyanosis/edema Neuro: Intubated and sedated Skin: warm/dry Medical - PN: Obj Da - Labs CBC & Chem 7: 09/24/19 04:14 09/24/19 14:02 Labs: Abnormal Lab Results 09/24/19 09/24/19 09/23/19 04:14 04:14 04:00 RBC 3.53 L Hgb 10.8 L Hct 34.5 L RDW 16.6 H Plt Count MPV 10.9 H Lymph % (Auto) 13.6 L Moca % (Auto) 13.8 H Lymph # (Auto) 0.77 L Moca # (Auto) Sodium 146 H Potassium 2.9 L* BUN 29 H 27 H Glucose 113 H Calcium Total Protein 5.6 L 5.5 L Albumin Mycoplasma pneumon IgG 09/23/19 09/22/19 09/22/19 04:00 03:58 03:58 RBC 3.58 L 3.44 L Hgb 11.0 L 10.6 L Hct 34.3 L 32.6 L RDW 16.3 H 18.5 H Plt Count 125 L MPV 11.2 H Lymph % (Auto) 11.6 L 9.7 L Moca % (Auto) 17.8 H 12.5 H Lymph # (Auto) 0.74 L 0.5 L Moca # (Auto) 1.14 H Sodium Potassium BUN 23 H Glucose 108 H Calcium 8.5 L Total Protein 5.3 L Albumin 2.9 L Mycoplasma pneumon IgG 09/16/19 19:00 RBC Hgb Hct RDW Plt Count MPV Lymph % (Auto) Moca % (Auto) Lymph # (Auto) Moca # (Auto) Sodium Potassium BUN Glucose Calcium Total Protein Albumin Mycoplasma pneumon IgG 1.14 A Meds: Medications Acetaminophen (Tylenol) 650 mg PO Q6HP PRN PRN Reason: PAIN/FEVER > 101 Last Admin: 09/20/19 14:28 Dose: 650 mg Documented by: Hydrocodone Bitart/Acetaminophen ([place] 5/325mg) 1 tab PO Q4-6HP PRN; Protocol PRN Reason: Per Pain Protocol Last Admin: 09/23/19 00:46 Dose: 1 tab Documented by: Allopurinol (Zyloprim) 200 mg PO QDAY [facility] Last Admin: 09/24/19 09:09 Dose: 200 mg Documented by: Amiodarone HCl (Cordarone) 200 mg PO QDAY [facility] Last Admin: 09/24/19 09:09 Dose: 200 mg Documented by: Apixaban (Eliquis) 5 mg PO BID [facility] Last Admin: 09/24/19 09:09 Dose: 5 mg Documented by: Chlordiazepoxide HCl (Librium) 25 mg PO Q4HP PRN PRN Reason: Alcohol Withdrawal Last Admin: 09/24/19 09:15 Dose: 25 mg Documented by: Chlorhexidine Gluconate (Peridex) 15 ml SWABMOUTH BID [facility] Last Admin: 09/24/19 10:13 Dose: 15 ml Documented by: Furosemide (Lasix) 40 mg PO BID@0900,1500 [facility] Last Admin: 09/24/19 09:09 Dose: 40 mg Documented by: Gabapentin (Neurontin) 300 mg PT TID [facility] Last Admin: 09/24/19 09:08 Dose: 300 mg Documented by: Heparin Sodium (Porcine) (Heparin Flush) 2 ml IV Q12 [facility] Last Admin: 09/24/19 10:13 Dose: 2 ml Documented by: Heparin Sodium (Porcine) (Heparin Flush) 2 ml IV Q12 [facility] Last Admin: 09/24/19 09:51 Dose: Not Given Documented by: Potassium Chloride 40 meq/ (Dextrose) 520 mls @ 130 mls/hr IV UD PRN PRN Reason: Potassium < 3 Last Admin: 09/24/19 09:08 Dose: 130 mls/hr Documented by: Magnesium Sulfate (Magnesium Sulfate) 2 gm in 50 mls @ 50 mls/hr IV UD PRN PRN Reason: Magnesium </= 1.6 Last Infusion: 09/20/19 09:01 Dose: Infused Documented by: Propofol 1,000 mg/ Premix 100 mls @ 4.506 mls/hr IV .[id number] MIRANDA; Protocol Last Titration: 09/24/19 12:57 Dose: 30 mcg/kg/min, 27.033 mls/hr Documented by: Sodium Chloride (Sodium Chloride 0.9%) 250 mls @ 20 mls/hr IV .[id number] MIRANDA Last Infusion: 09/23/19 23:08 Dose: 0 mls/hr Documented by: Piperacillin Sod/Tazobactam (Sod 3.375 gm/ Dextrose) 50 mls @ 100 mls/hr IV Q6H MIRANDA; Protocol Stop: 09/25/19 06:01 Last Infusion: 09/24/19 12:41 Dose: Infused Documented by: Norepinephrine Bitartrate 16 (mg/ Sodium Chloride) 250 mls @ 9.375 mls/hr IV Q24HP PRN; Protocol PRN Reason: Hypotension Diltiazem HCl 125 mg/ Dextrose 125 mls @ 5 mls/hr IV Q8HP PRN; Protocol PRN Reason: Tachyarrhythmias Dexmedetomidine HCl 400 mcg/ (Premix) 100 mls @ 7.693 mls/hr IV .Q13H MIRANDA; Protocol Last Titration: 09/24/19 12:58 Dose: 0.2 mcg/kg/hr, 7.693 mls/hr Documented by: Ipratropium [place] (Atrovent) 2.5 ml NEB Q8H MIRANDA Last Admin: 09/24/19 10:53 Dose: 2.5 ml Documented by: Labetalol HCl (Trandate) 0 mg IV Q2HP PRN PRN Reason: Hypertension Last Admin: 09/21/19 08:35 Dose: 10 mg Documented by: Lactobacillus Rhamnosus (Culturelle) 1 cap PO BID MIRANDA Last Admin: 09/24/19 09:09 Dose: 1 cap Documented by: Levalbuterol HCl (Xopenex) 1.25 mg NEB Q4HP PRN PRN Reason: Shortness Of Breath Lorazepam (Ativan) 1 mg IV Q2HP PRN PRN Reason: Withdrawl Symptoms Last Admin: 09/24/19 01:56 Dose: 1 mg Documented by: Melatonin (Melatonin 3mg Tablet) 3 mg PO HSP PRN PRN Reason: Insomnia Methylprednisolone Sodium Succinate (Solu-Medrol) 40 mg IV DAILY [facility] Last Admin: 09/24/19 09:46 Dose: 40 mg Documented by: Mupirocin (Bactroban Oint 2%) 1 dose TOPICAL BID [facility] Last Admin: 09/24/19 10:13 Dose: 1 dose Documented by: Nystatin (Nystatin) 500,000 units SSP QID [facility] Last Admin: 09/24/19 13:26 Dose: 500,000 units Documented by: Ondansetron HCl (Zofran) 4 mg IV Q4HP PRN PRN Reason: Nausea And Vomiting Polyethylene Glycol (Miralax) 17 gm PO DAILYP PRN PRN Reason: Constipation Potassium Chloride (Kdur) 40 meq PO UD PRN PRN Reason: Potssium is 3-3.5 Last Admin: 09/22/19 11:57 Dose: 40 meq Documented by: Potassium Chloride (Kdur) 40 meq PO UD PRN PRN Reason: Potassium < 3 Potassium Chloride (Klor-Con) 20 meq PO BID [facility] Last Admin: 09/24/19 09:08 Dose: 20 meq Documented by: Senna (Senokot) 2 tab PO DAILYP PRN PRN Reason: Constipation Sertraline HCl (Zoloft) 200 mg PO QDAY [facility] Last Admin: 09/24/19 09:09 Dose: 200 mg Documented by: Simvastatin (Zocor) 40 mg PO QAM [facility] Last Admin: 09/24/19 09:09 Dose: 40 mg Documented by: Sodium Chloride (Saline Flush) 10 ml IV Q8 [facility] Last Admin: 09/24/19 13:26 Dose: 10 ml Documented by: Sodium Chloride (Saline Flush) 10 ml IV UD PRN PRN Reason: FLUSH Thiamine HCl (Vitamin B1) 100 mg PO DAILY [facility] Last Admin: 09/24/19 09:09 Dose: 100 mg Documented by: Medical - PN: A/P - Time Spent With Patient Total time spent is greater than 50% in coordination of care (as documented) at patient's floor/unit and/or counseling patient: - Narrative A/P Narrative: A: *ETOH W/D: With further history of significant daily alcohol consumption, this presentation is consistent with severe alcohol withdrawal syndrome. Sedation requirements improving, Versed has been weaned off. Still requiring propofol. Symptoms began a little over 72 hours after admission. Further history from , notes heavy daily consumption of hard liquor, even arising at night for further consumption. *Encephalopathy: 2/2 above *Required Intubation for Above: during event on he had increasing O2 needs -Intubated 09/20 *Pneumonia: likely viral (Human Metapneumovirus +) vs Bacterial. Initial concern for developing ARDS, PaO2/FiO2 is 74/0.5 = 148. Needed increased PEEP and FiO2 1/1, P/F 133. Radiograph clearer than at time of intubation, less concern for ARDS. -MRSA screen (+), Strep Ur Ag & Myco neg, PCT/CRP neg *AECOPD (not on home O2): *Shock: Resolved. Suspect 2/2 medications for sedation, continues to require norepinephrine to maintain adequate mean arterial pressure. Less concern for sepsis, but remains on broadened antibacterials. *LAWSON: resovled *Lactic acidosis: resolved *SIRS: improving *Leukopenia/Thrombocytopenia: 2/2 above, stable *Afib RVR: On amiodarone and Lopressor and Eliquis. -follows with Dr. Kenney *h/o CVA: *HTN/HLD: *Obesity: *SILVIA intolerant to CPAP: *Depression: *CKD: *Anemia, chronic: *Depression: *Hypomag/phos/braden: P: -Begin Precedex, wean propofol further to allow for control of ventilator associated discomfort in attempting weaning parameters in the next 24 hours -Daily wake-up trials and reassessment -Continue CIWA protocol, as needed chlordiazepoxide and IV lorazepam for ongoing withdrawal symptoms -Discontinue vancomycin, Discontinue Zosyn after 5 days -Follow daily chest films Weaning parameters when able to fully follow commands Continue with Solu-Medrol (dose reduced), bronchodilators -Monitor oxygen needs -wean vasopressors -cont sharon Amio/BB -Switch albuterol to Xopenex, IS/Acapella -electrolyte replacement -pt/ot -ppx: home eliquis
[2019-09-24] MEDS ORDERED: ALBUMIN HUMAN 12.5 GM/50 ML BAG IV ONE (16:59)
[2019-09-24] MEDS ORDERED: FUROSEMIDE 20 MG/2 ML VIAL IV ONE (16:59)
[2019-09-24] MEDS ORDERED: DEXMEDETOMIDINE 100 ML IV ONE (19:55)
[2019-09-25] MEDS: IPRATROPIUM 2.5 ML AMPUL.NEB NEB SCH ×2 (01:45→13:26)
[2019-09-25] MEDS: PROPOFOL 1,000 MG in PREMIX 1 BAG IV SCH (01:49)
[2019-09-25] MEDS: DEXMEDETOMIDINE 400 MCG in PREMIX 1 BAG IV SCH ×3 (02:29→11:48)
[2019-09-25] MEDS: LABETALOL 5 MG/ML ML IV PRN ×3 (03:16→05:52)
[2019-09-25] MEDS: PIPERACILLIN SODIUM/TAZOBACTAM 3.375 GM in DEXTROSE 5% IN WATER 50 ML IV SCH (05:42)
[2019-09-25] MEDS: 0.9 % SODIUM CHLORIDE 10 ML SYRINGE IV SCH ×2 (06:29→09:51)
--- NOTE | 2019-09-25 06:50 | XRay Report ---
CLINICAL INFORMATION: Mechanically Ventilated COMPARISON: 09/24/2019 FINDINGS: Mild cardiomegaly for the is unchanged. Pulmonary vasculature unremarkable Lines and tubes remain in stable satisfactory position. Dense consolidation left lower lobe with small effusion again noted. Small region of atelectasis right base improved IMPRESSION: Dense consolidation of the left lower lobe likely representing atelectasis and small effusion - unchanged Minor atelectasis right base - improved Mild cardiomegaly - stable Interpreted and Authenticated by: Evin Huang 09/25/19
[2019-09-25 06:53] LABS: Basophils # (Auto) 0.01 K/mcL (0.00-0.30); Basophils % (Auto) 0.1 % (0.0-2.0); Eosinophils # (Auto) 0.05 K/mcL (0.00-0.70); Eosinophils % (Auto) 0.7 % (0.0-7.0); Hematocrit 37.4 % (40.1-51.0); Hemoglobin 11.6 g/dL (13.7-17.5); Lymphocytes # (Auto) 0.87 K/mcL (1.50-4.80); Mean Cell Volume 96.6 fL (80.0-100.0); Mean Platelet Volume 10.7 fL (7.4-10.4); Monocytes # (Auto) 0.95 K/mcL (0.10-0.90); Monocytes % (Auto) 14.2 % (1.0-12.0); Platelet Count 200 K/mcL (140-440); RBC 3.87 M/mcL (4.63-6.08); WBC 6.7 K/mcL (4.50-11.00)
[2019-09-25 07:11] LABS: ALT/SGPT 15 U/l (0-40); AST/SGOT 15 U/l (0-37); Albumin 3.5 gm/dL (3.2-5.2); Albumin/Globulin Ratio 1.3 (1.0-2.3); Alkaline Phosphatase 64 U/L (39-117); Bilirubin,Direct < 0.2 mg/dL (0.0-0.3); Bilirubin,Total 0.3 mg/dL (0.0-1.0); Blood Urea Nitrogen 26 mg/dl (6-20); Calcium 9.4 mg/dl (8.6-10.4); Carbon Dioxide 30 mmol/L (22-30); Chloride 102 mmol/L (96-108); Globulin 2.7 gm/dL (2.2-3.7); Glomerular Filtration Rate 95; Glucose 107 mg/dL (70-105); Lactate Dehydrogenase 185 U/L (94-250); Phosphorous 2.9 mg/dL (2.7-4.5); Triglycerides 74 mg/dl (<150); Uric Acid 2.8 mg/dL (2.5-8.0)
--- NOTE | 2019-09-25 07:26 | Internal Med Progress Note ---
Medical - PN: Subj Patient information: Note initiated : 09/25/19 at 7:26 am Service Date, if different from initiated Date: [] Patient: Gunner Bliss a 54 y/o M admitted on 09/16/19 for SOB/weakness. Chief Complaint: [] Interval history: 09/16 Mr. Bliss is a 54 year old M Who presents to the hospital for cough and congestion shortness of breath. Patient states about 4 days ago he developed flulike symptoms with headache body aches a cough productive of white sputum. He is complained of fevers and chills. He also has a pleuritic chest pain. Complained of shortness of breath. He had a poor sleep past few nights because of coughing. In the ED he seemed to build to maintain his saturations but did have a mild tachycardia leukopenia and elevated lactate. Procalcitonin was negative. Flu screen was negative. Chest x-ray shows no infiltrates on the right. Denies any weight gain or increased edema in his legs. 09/17 Coughing still. Has some shortness of breath but is slowly improving. States the DuoNeb treatment helped. Overall feeling a little better. Poor sleep. Did have some diarrhea this morning. Cosby a little chilled this morning 09/18 still "feels bad but better". cough nonproductive, dyspnea when walking to bathroom. COOK. 09/19 Patient still has cough productive of solorio sputum. And shortness of breath. Has headache and is sweaty on occasion. This morning when in A. fib RVR between rates of 140-160. IV Lopressor given without result patient put on diltiazem drip. Oxygen need increased during episode. 09/20 Earlier on 09/20-Little after midnight, the patient developed agitation. He pulled out his IVs. He began to experience hallucinations. He was on the CIWA protocol received lorazepam, which seemed to worsen his symptoms. He received a dose of Seroquel orally, however continued to have worsening behavior. He received Zyprexa IM x2. He required restraints for safety. Eventually Police Department was called for security and lap machine tender were on scene as well to help manage the patient's behavior. In spite of the above therapies, the patient continued to experience worsening agitation and hallucinations and delirium. He was started on Precedex infusion without significant effect, which was stopped after 30 minutes due to the development of hypotension. Ketamine was considered, however patient's blood pressure was on the low side at that time. During this, Ambriz catheter was placed with about 300 mils of urine return, ruling out significant bladder discomfort as a cause of agitation. Blood gas showed no hypercarbia, did show hypoxia which was pre-existing. There are no apparent new complaints of pain prior to this onset. Due to worsening clinical status, decision was made to intubate. Dr. Hendrickson from the emergency department performed the intubation using glide scope. Patient received 2 mg of Versed with some sedative effect, post intubation required 2 mg further Versed prior to sedation via infusion. Daytime course 09/20-when intubation, the patient required significant doses of propofol and Versed to maintain adequate sedation. Blood pressure rebounded following intubation, then decreased with sedation. Eventually required further boluses and subsequently initiation of norepinephrine via a peripheral line. Labs from post intubation showed acute kidney injury, which had improved by the afternoon. Urine output picked up with improvement in blood pressure. Antibiotic coverage expanded to include vancomycin and Zosyn, continuing doxycycline for atypical coverage given his extensive and worsening bilateral infiltrates. 09/21 Has remained intubated, sedated with propofol and Versed. Still becomes agitated when sedation is lightened. No longer requiring pressors to maintain blood pressure while sedated. Chest x-ray is improved this morning. P/F remaining generally stable. Has started tube feeds for nutrition. 09/22 Patient's visited yesterday. She provided further history that the patient has significant intake of hard liquor, starting to drink in the morning, consuming all day long, arising at night to have further intake. Remains on diltiazem drip for A. fib rate control. Not requiring pressors for blood pressure while sedated. On propofol with adjunct midazolam for sedation. Still quite agitated whenever sedation is lightened. Also receiving chlordiazepoxide per tube for withdrawal symptoms. Ventilator stable, P/F ratio in the 120s. Radiograph stable. 09/23/2019 Patient remains sedated. He is requiring less Versed as an adjunct to the propofol. Was able to follow some commands earlier today them started becoming more agitated and trying to pull out lines and tubes through the restraints. Also receiving chlordiazepoxide via the tube for withdrawal symptoms. ABG this morning with PaO2 of 41, improved with PEEP increased to 15 and FiO2 to 0.60. Converted from A. fib to normal sinus rhythm overnight. 09/24 Patient remains intubated. Sedation is lightened, no longer on Versed infusion. Still requiring propofol, however, when lightened able to follow some directions, though still tends to want to pull on lines and tubes. Continues to receive chlordiazepoxide via an NG tube for withdrawal symptoms. Still with significant P/F ratio, remains on 60% FiO2. Updated his at bedside today. 09/25 FiO2 still 60% agreeable to wean down his PEEP down to 10, unsuccessful in tr pedro to wean down to 8. Chest x-ray unchanged. A 5 on the ventilator with minimal improvement. Patient likely needs to be transferred. He is awake and alert and following directions. Review of systems unable to obtain patient on vent - Constitutional Vitals: Vital Signs Temp Pulse Resp BP Pulse Ox 96.8 F L 66 13 156/103 90 09/25/19 07:01 09/24/19 11:09 09/25/19 06:43 09/25/19 07:01 09/25/19 07:01 Period Temp Pulse Resp BP Sys/Bunch Pulse Ox Last 24 Hr 96.5 F-97.6 F 66-67 12-18 130-201/69-107 83-98 Intake and Output 09/24/19 09/25/19 09/25/19 21:59 05:59 13:59 Intake Total 667 972 Output Total 2583 570 65 Balance -1916 402 -65 Weight 152.135 kg Intake & Output: Intake & Output 09/24/19 09/25/19 09/25/19 21:59 05:59 13:59 Intake Total 667 972 Output Total 2583 570 65 Balance -1916 402 -65 Weight 152.135 kg Intake: IV 219 149 Sodium Chloride 0.9% 250 ml @ 0 20 mls/hr IV .[id number] [facility] Rx#: [id number] Precedex 400 Mcg/100 ml 70 99 Dextrose 400 Mcg In Premix 1 Bag @ 0.2 MCG/KG/HR 7.693 mls/ hr IV .Q13H [facility] Rx#:[id number] Zosyn 3.375 gm In Dextrose 5% 50 50 in Water 50 ml @ 100 mls/hr IV Q6H [facility] Rx#:[id number] Diprivan 1,000 mg In Premix 1 49 Bag @ 5 MCG/KG/MIN 4.506 mls/hr IV .[id number] [facility] Rx#:[id number] Tube Feeding 388 733 GI Tube Flush 60 90 Output: Urine Catheter Amount 8826 570 65 Other: Urine Appearance Clear Clear Clear Uretheral (Ambriz) Clear Clear Clear Urine Color Bright Yellow Bright Yellow Bright Yellow Uretheral (Ambriz) Straw Bright Yellow Bright Yellow Urine Odor Normal Normal Uretheral (Ambriz) Normal Normal Stool Size Moderate Stool Color Brown Black Stool Consistency Loose Exam: General: Intubated and sedated, No acute Distress, obese Eyes/N/T: EOMI, PERRL Head/Neck: neck supple, CV: RRR, No murmurs, normal s1/s2 Pulm: diminished b/l R>L, no wheezing/rhonchi Abd: soft, nontender, +BS x4 Ext: no clubbing/cyanosis/edema Neuro: Intubated and sedated Skin: warm/dry Medical - PN: Obj Da - Labs CBC & Chem 7: 09/25/19 05:43 09/25/19 05:43 Labs: Abnormal Lab Results 09/25/19 09/25/19 09/24/19 05:43 05:43 04:14 RBC 3.87 L Hgb 11.6 L Hct 37.4 L RDW 16.0 H MPV 10.7 H Lymph % (Auto) 13.0 L Walton % (Auto) 14.2 H Lymph # (Auto) 0.87 L [place] # (Auto) 0.95 H Sodium 146 H Potassium 2.9 L* BUN 26 H 29 H Glucose 107 H 113 H Total Protein 5.6 L Mycoplasma pneumon IgG 09/24/19 09/23/19 09/23/19 04:14 04:00 04:00 RBC 3.53 L 3.58 L Hgb 10.8 L 11.0 L Hct 34.5 L 34.3 L RDW 16.6 H 16.3 H MPV 10.9 H 11.2 H Lymph % (Auto) 13.6 L 11.6 L [place] % (Auto) 13.8 H 17.8 H Lymph # (Auto) 0.77 L 0.74 L [place] # (Auto) 1.14 H Sodium Potassium BUN 27 H Glucose Total Protein 5.5 L Mycoplasma pneumon IgG 09/16/19 19:00 RBC Hgb Hct RDW MPV Lymph % (Auto) Walton % (Auto) Lymph # (Auto) [place] # (Auto) Sodium Potassium BUN Glucose Total Protein Mycoplasma pneumon IgG 1.14 A Meds: Medications Acetaminophen (Tylenol) 650 mg PO Q6HP PRN PRN Reason: PAIN/FEVER > 101 Last Admin: 09/20/19 14:28 Dose: 650 mg Documented by: Hydrocodone Bitart/Acetaminophen ([place] 5/325mg) 1 tab PO Q4-6HP PRN; Protocol PRN Reason: Per Pain Protocol Last Admin: 09/23/19 00:46 Dose: 1 tab Documented by: Allopurinol (Zyloprim) 200 mg PO QDAY [facility] Last Admin: 09/24/19 09:09 Dose: 200 mg Documented by: Amiodarone HCl (Cordarone) 200 mg PO QDAY [facility] Last Admin: 09/24/19 09:09 Dose: 200 mg Documented by: Apixaban (Eliquis) 5 mg PO BID [facility] Last Admin: 09/24/19 20:21 Dose: 5 mg Documented by: Chlordiazepoxide HCl (Librium) 25 mg PO Q4HP PRN PRN Reason: Alcohol Withdrawal Last Admin: 09/24/19 09:15 Dose: 25 mg Documented by: Chlorhexidine Gluconate (Peridex) 15 ml SWABMOUTH BID [facility] Last Admin: 09/24/19 20:22 Dose: 15 ml Documented by: Diagnostic Test (Pha) (Accu-Chek) 1 each FS Q6 [facility] Last Admin: 09/25/19 05:54 Dose: 1 each Documented by: Furosemide (Lasix) 40 mg PO BID@0900,1500 [facility] Last Admin: 09/24/19 15:24 Dose: 40 mg Documented by: Gabapentin (Neurontin) 300 mg PT TID [facility] Last Admin: 09/24/19 20:21 Dose: 300 mg Documented by: Heparin Sodium (Porcine) (Heparin Flush) 2 ml IV Q12 [facility] Last Admin: 09/24/19 20:21 Dose: 2 ml Documented by: Heparin Sodium (Porcine) (Heparin Flush) 2 ml IV Q12 [facility] Last Admin: 09/24/19 20:22 Dose: Not Given Documented by: Potassium Chloride 40 meq/ (Dextrose) 520 mls @ 130 mls/hr IV UD PRN PRN Reason: Potassium < 3 Last Infusion: 09/24/19 13:08 Dose: Infused Documented by: Magnesium Sulfate (Magnesium Sulfate) 2 gm in 50 mls @ 50 mls/hr IV UD PRN PRN Reason: Magnesium </= 1.6 Last Infusion: 09/20/19 09:01 Dose: Infused Documented by: Propofol 1,000 mg/ Premix 100 mls @ 4.506 mls/hr IV .[id number] [facility]; Protocol Last Admin: 09/25/19 01:49 Dose: Not Given Documented by: Sodium Chloride (Sodium Chloride 0.9%) 250 mls @ 20 mls/hr IV .[id number] [facility] Last Admin: 09/24/19 15:13 Dose: 15 mls/hr Documented by: Norepinephrine Bitartrate 16 (mg/ Sodium Chloride) 250 mls @ 9.375 mls/hr IV Q24HP PRN; Protocol PRN Reason: Hypotension Diltiazem HCl 125 mg/ Dextrose 125 mls @ 5 mls/hr IV Q8HP PRN; Protocol PRN Reason: Tachyarrhythmias Dexmedetomidine HCl 400 mcg/ (Premix) 100 mls @ 7.693 mls/hr IV .Q13H [facility]; Protocol Last Admin: 09/25/19 02:29 Dose: 0.5 mcg/kg/hr, 19.232 mls/hr Documented by: Ipratropium [place] (Atrovent) 2.5 ml NEB Q8H [facility] Last Admin: 09/25/19 01:45 Dose: 2.5 ml Documented by: Labetalol HCl (Trandate) 0 mg IV Q2HP PRN PRN Reason: Hypertension Last Admin: 09/25/19 05:52 Dose: 20 mg Documented by: Lactobacillus Rhamnosus (Culturelle) 1 cap PO BID [facility] Last Admin: 09/24/19 20:21 Dose: 1 cap Documented by: Levalbuterol HCl (Xopenex) 1.25 mg NEB Q4HP PRN PRN Reason: Shortness Of Breath Lorazepam (Ativan) 1 mg IV Q2HP PRN PRN Reason: Withdrawl Symptoms Last Admin: 09/24/19 01:56 Dose: 1 mg Documented by: Melatonin (Melatonin 3mg Tablet) 3 mg PO HSP PRN PRN Reason: Insomnia Methylprednisolone Sodium Succinate (Solu-Medrol) 40 mg IV DAILY [facility] Last Admin: 09/24/19 09:46 Dose: 40 mg Documented by: Mupirocin (Bactroban Oint 2%) 1 dose TOPICAL BID [facility] Last Admin: 09/24/19 20:22 Dose: 1 dose Documented by: Nystatin (Nystatin) 500,000 units SSP QID [facility] Last Admin: 09/24/19 20:20 Dose: 500,000 units Documented by: Ondansetron HCl (Zofran) 4 mg IV Q4HP PRN PRN Reason: Nausea And Vomiting Polyethylene Glycol (Miralax) 17 gm PO DAILYP PRN PRN Reason: Constipation Potassium Chloride (Kdur) 40 meq PO UD PRN PRN Reason: Potssium is 3-3.5 Last Admin: 09/22/19 11:57 Dose: 40 meq Documented by: Potassium Chloride (Kdur) 40 meq PO UD PRN PRN Reason: Potassium < 3 Potassium Chloride (Klor-Con) 20 meq PO BID [facility] Last Admin: 09/24/19 20:21 Dose: 20 meq Documented by: Senna (Senokot) 2 tab PO DAILYP PRN PRN Reason: Constipation Sertraline HCl (Zoloft) 200 mg PO QDAY [facility] Last Admin: 09/24/19 09:09 Dose: 200 mg Documented by: Simvastatin (Zocor) 40 mg PO QAM [facility] Last Admin: 09/24/19 09:09 Dose: 40 mg Documented by: Sodium Chloride (Saline Flush) 10 ml IV Q8 [facility] Last Admin: 09/25/19 06:29 Dose: 10 ml Documented by: Sodium Chloride (Saline Flush) 10 ml IV UD PRN PRN Reason: FLUSH Thiamine HCl (Vitamin B1) 100 mg PO DAILY [facility] Last Admin: 09/24/19 09:09 Dose: 100 mg Documented by: Medical - PN: A/P - Time Spent With Patient Total time spent is greater than 50% in coordination of care (as documented) at patient's floor/unit and/or counseling patient: - Narrative A/P Narrative: A: *ETOH W/D: With further history of significant daily alcohol consumption, this presentation is consistent with severe alcohol withdrawal syndrome. Symptoms b [place] a little over 72 hours after admission. Further history from , notes heavy daily consumption of hard liquor, even arising at night for further consumption. REsolved *Encephalopathy: 2/2 above, Improved *Required Intubation for Above: during event on he had increasing O2 needs -Intubated 09/20 *Pneumonia: likely initially viral (Human Metapneumovirus +). concern for ARDS -MRSA screen (+), Strep Ur Ag & Myco neg, PCT/CRP neg *Acute Hypoxic Resp [place]: *AECOPD (not on home O2): *LAWSON: resovled *Lactic acidosis: resolved *SIRS: improved *Leukopenia/Thrombocytopenia: 2/2 above, stable *Afib RVR: On amiodarone and Lopressor and Eliquis. -follows with Dr. Kenney *h/o CVA: *HTN/HLD: *Obesity: *SILVIA intolerant to CPAP: *Depression: *CKD: *Anemia, chronic: *Depression: *Hypomag/phos/braden: P: -Begin Precedex, wean propofol further to allow for control of ventilator associated discomfort in attempting weaning parameters in the next 24 hours -Daily wake-up trials and reassessment -Continue CIWA protocol, as needed chlordiazepoxide and IV lorazepam for ongoing withdrawal symptoms -Discontinued vancomycin, Zosyn also stopped today, was on abx for a week -May need transfer to higher level of care Continue with Solu-Medrol (wean), bronchodilators -Monitor oxygen needs -cont sharon Amio/BB -Switch albuterol to Xopenex, IS/Acapella -electrolyte replacement -pt/ot -ppx: home eliquis
[2019-09-25] MEDS ORDERED: POTASSIUM CHLORIDE 20 MEQ in DEXTROSE 5% IN WATER 250 ML IV ONE (07:29)
[2019-09-25] MEDS ORDERED: POTASSIUM CHLORIDE 20 MEQ/15 ML ML PT ONE (07:29)
[2019-09-25] MEDS ORDERED: DEXMEDETOMIDINE IV ONE (07:51)
[2019-09-25] MEDS: POTASSIUM CHLORIDE 40 MEQ in DEXTROSE 5% IN WATER 500 ML IV PRN (08:08)
[2019-09-25] MEDS: NYSTATIN 500,000 UNITS/5 ML ORAL.SUSP SSP SCH (09:45)
[2019-09-25] MEDS: methylPREDNISolone SOD SUCC 40 MG/ML VIAL IV SCH (09:45)
[2019-09-25] MEDS: 0.9 % SODIUM CHLORIDE 250 ML IV SCH (09:45)
[2019-09-25] MEDS: AMIODARONE HCL 200 MG TABLET PO SCH (09:46)
[2019-09-25] MEDS: THIAMINE 100 MG TABLET PO SCH (09:46)
[2019-09-25] MEDS: ALLOPURINOL 100 MG TABLET PO SCH (09:47)
[2019-09-25] MEDS: GABAPENTIN 300 MG CAPSULE PT SCH (09:47)
[2019-09-25] MEDS: POTASSIUM CHLORIDE 20 MEQ PACKET PO SCH (09:48)
[2019-09-25] MEDS: FUROSEMIDE 40 MG TABLET PO SCH (09:48)
[2019-09-25] MEDS: CHLORHEXIDINE GLUCONATE 1 ML ORAL.SOL SWABMOUTH SCH (09:48)
[2019-09-25] MEDS: MUPIROCIN OINT 2% 22GM TOPICAL SCH (09:51)
[2019-09-25] MEDS: LACTOBACILLUS 1 CAPSULE PO SCH (09:53)
[2019-09-25] MEDS: APIXABAN 5 MG TABLET PO SCH (09:53)
[2019-09-25] MEDS: SERTRALINE 100 MG TABLET PO SCH (09:53)
[2019-09-25] MEDS: SIMVASTATIN 40 MG TABLET PO SCH (09:53)
--- NOTE | 2019-09-25 10:53 | Transfer Summary ---
Transfer Discharge Sum: Prov Patient information: Note initiated : 09/25/19 at 10:48 am Service Date, if different from initiated Date: [] Patient: Gunner Bliss 54 y/o M admitted on 09/16/19 for SOB/weakness. Chief Complaint: [] Date of admission: 09/16/19 22:54 Discharge Date: 09/25/19 Primary care physician: Evin Elliott Consults: 09/16/19 Consult to Physician [CONS] Stat Comment: Consulting Provider: Ismael Dubon Reason For Exam: Physician to Consult Transfer Discharge Sum: Diag - Discharge Diagnosis (1) Acute and chronic respiratory failure with hypoxia Status: Acute Transfer Discharge Sum: Med - Medications Active and Home Medications: Home Medications cyanocobalamin (vitamin B-12) 2,000 mcg tablet,extended release 2,000 mcg PO QDAY 08/26/15 [History Confirmed 09/17/19] magnesium oxide 400 mg PO DAILY cap 08/26/15 [History Confirmed 09/17/19] cholecalciferol (vitamin D3) 10,000 unit capsule 10,000 unit PO QDAY #1 cap 09/20/15 [Rx Confirmed 09/17/19] thiamine HCl (vitamin B1) 100 mg tablet 100 mg PO QDAY 06/05/17 [History Confirmed 09/17/19] apixaban 5 mg tablet 5 mg PO BID 90 Days #180 tab 04/30/18 [Rx Confirmed 09/17/19] allopurinol 100 mg tablet 200 mg PO QDAY #180 tab 12/17/18 [Rx Confirmed 09/17/19] metoprolol tartrate 50 mg tablet 50 mg PO BID #180 tab 12/17/18 [Rx Confirmed 09/17/19] amiodarone 200 mg tablet 200 mg PO QDAY #90 tab 04/23/19 [Rx Confirmed 09/17/19] sertraline 100 mg tablet 200 mg PO QDAY #60 tab 04/30/19 [Rx Confirmed 09/17/19] simvastatin 40 mg tablet 40 mg PO QAM #90 tab 07/16/19 [Rx Confirmed 09/17/19] furosemide 40 mg tablet 40 mg PO BID #180 tab 09/03/19 [Rx Confirmed 09/17/19] Gabapentin [Neurontin] 300 mg PO BID 09/17/19 [History Confirmed 09/17/19] Active Medications Acetaminophen (Tylenol) 650 mg PO Q6HP PRN PRN Reason: PAIN/FEVER > 101 Last Admin: 09/20/19 14:28 Dose: 650 mg Documented by: Hydrocodone Bitart/Acetaminophen ([place] 5/325mg) 1 tab PO Q4-6HP PRN; Protocol PRN Reason: Per Pain Protocol Last Admin: 09/23/19 00:46 Dose: 1 tab Documented by: Allopurinol (Zyloprim) 200 mg PO QDAY [facility] Last Admin: 09/25/19 09:47 Dose: 200 mg Documented by: Amiodarone HCl (Cordarone) 200 mg PO QDAY [facility] Last Admin: 09/25/19 09:46 Dose: 200 mg Documented by: Apixaban (Eliquis) 5 mg PO BID [facility] Last Admin: 09/25/19 09:53 Dose: 5 mg Documented by: Chlordiazepoxide HCl (Librium) 25 mg PO Q4HP PRN PRN Reason: Alcohol Withdrawal Last Admin: 09/24/19 09:15 Dose: 25 mg Documented by: Chlorhexidine Gluconate (Peridex) 15 ml SWABMOUTH BID [facility] Last Admin: 09/25/19 09:48 Dose: 15 ml Documented by: Diagnostic Test (Pha) (Accu-Chek) 1 each FS Q6 [facility] Last Admin: 09/25/19 05:54 Dose: 1 each Documented by: Furosemide (Lasix) 40 mg PO BID@0900,1500 [facility] Last Admin: 09/25/19 09:48 Dose: 40 mg Documented by: Gabapentin (Neurontin) 300 mg PT TID [facility] Last Admin: 09/25/19 09:47 Dose: 300 mg Documented by: Heparin Sodium (Porcine) (Heparin Flush) 2 ml IV Q12 [facility] Last Admin: 09/25/19 10:03 Dose: 2 ml Documented by: Heparin Sodium (Porcine) (Heparin Flush) 2 ml IV Q12 [facility] Last Admin: 09/25/19 10:03 Dose: Not Given Documented by: Potassium Chloride 40 meq/ (Dextrose) 520 mls @ 130 mls/hr IV UD PRN PRN Reason: Potassium < 3 Last Admin: 09/25/19 08:08 Dose: 130 mls/hr Documented by: Magnesium Sulfate (Magnesium Sulfate) 2 gm in 50 mls @ 50 mls/hr IV UD PRN PRN Reason: Magnesium </= 1.6 Last Infusion: 09/20/19 09:01 Dose: Infused Documented by: Propofol 1,000 mg/ Premix 100 mls @ 4.506 mls/hr IV .[id number] [facility]; Protocol Last Admin: 09/25/19 01:49 Dose: Not Given Documented by: Sodium Chloride (Sodium Chloride 0.9%) 250 mls @ 20 mls/hr IV .[id number] [facility] Last Admin: 09/25/19 09:45 Dose: 15 mls/hr Documented by: Norepinephrine Bitartrate 16 (mg/ Sodium Chloride) 250 mls @ 9.375 mls/hr IV Q24HP PRN; Protocol PRN Reason: Hypotension Diltiazem HCl 125 mg/ Dextrose 125 mls @ 5 mls/hr IV Q8HP PRN; Protocol PRN Reason: Tachyarrhythmias Dexmedetomidine HCl 400 mcg/ (Premix) 100 mls @ 7.693 mls/hr IV .Q13H [facility]; Protocol Last Admin: 09/25/19 08:08 Dose: 0.5 mcg/kg/hr, 19.232 mls/hr Documented by: Ipratropium Jamison (Atrovent) 2.5 ml NEB Q8H [facility] Last Admin: 09/25/19 01:45 Dose: 2.5 ml Documented by: Labetalol HCl (Trandate) 0 mg IV Q2HP PRN PRN Reason: Hypertension Last Admin: 09/25/19 05:52 Dose: 20 mg Documented by: Lactobacillus Rhamnosus (Culturelle) 1 cap PO BID [facility] Last Admin: 09/25/19 09:53 Dose: 1 cap Documented by: Levalbuterol HCl (Xopenex) 1.25 mg NEB Q4HP PRN PRN Reason: Shortness Of Breath Lorazepam (Ativan) 1 mg IV Q2HP PRN PRN Reason: Withdrawl Symptoms Last Admin: 09/24/19 01:56 Dose: 1 mg Documented by: Melatonin (Melatonin 3mg Tablet) 3 mg PO HSP PRN PRN Reason: Insomnia Methylprednisolone Sodium Succinate (Solu-Medrol) 40 mg IV DAILY [facility] Last Admin: 09/25/19 09:45 Dose: 40 mg Documented by: Mupirocin (Bactroban Oint 2%) 1 dose TOPICAL BID [facility] Last Admin: 09/25/19 09:51 Dose: 1 dose Documented by: Nystatin (Nystatin) 500,000 units SSP QID [facility] Last Admin: 09/25/19 09:45 Dose: 500,000 units Documented by: Ondansetron HCl (Zofran) 4 mg IV Q4HP PRN PRN Reason: Nausea And Vomiting Polyethylene Glycol (Miralax) 17 gm PO DAILYP PRN PRN Reason: Constipation Potassium Chloride (Kdur) 40 meq PO UD PRN PRN Reason: Potssium is 3-3.5 Last Admin: 09/22/19 11:57 Dose: 40 meq Documented by: Potassium Chloride (Kdur) 40 meq PO UD PRN PRN Reason: Potassium < 3 Potassium Chloride (Klor-Con) 20 meq PO BID [facility] Last Admin: 09/25/19 09:48 Dose: 20 meq Documented by: Senna (Senokot) 2 tab PO DAILYP PRN PRN Reason: Constipation Sertraline HCl (Zoloft) 200 mg PO QDAY [facility] Last Admin: 09/25/19 09:53 Dose: 200 mg Documented by: Simvastatin (Zocor) 40 mg PO QAM [facility] Last Admin: 09/25/19 09:53 Dose: 40 mg Documented by: Sodium Chloride (Saline Flush) 10 ml IV Q8 [facility] Last Admin: 09/25/19 09:51 Dose: 10 ml Documented by: Sodium Chloride (Saline Flush) 10 ml IV UD PRN PRN Reason: FLUSH Thiamine HCl (Vitamin B1) 100 mg PO DAILY [facility] Last Admin: 09/25/19 09:46 Dose: 100 mg Documented by: Transfer Discharge Sum: Hosp Hospital course: Mr. Bliss is a 54 year old M 09/16 Mr. Bliss is a 54 year old M Who presents to the hospital for cough and congestion shortness of breath. Patient states about 4 days ago he developed flulike symptoms with headache body aches a cough productive of white sputum. He is complained of fevers and chills. He also has a pleuritic chest pain. Complained of shortness of breath. He had a poor sleep past few nights because of coughing. In the ED he seemed to build to maintain his saturations but did have a mild tachycardia leukopenia and elevated lactate. Procalcitonin was negative. Flu screen was negative. Chest x-ray shows no infiltrates on the right. Denies any weight gain or increased edema in his legs. 09/17 Coughing still. Has some shortness of breath but is slowly improving. States the DuoNeb treatment helped. Overall feeling a little better. Poor sleep. Did have some diarrhea this morning. [place] a little chilled this morning 09/18 still "feels bad but better". cough nonproductive, dyspnea when walking to bathroom. COOK. 09/19 Patient still has cough productive of solorio sputum. And shortness of breath. Has headache and is sweaty on occasion. This morning when in A. fib RVR between rates of 140-160. IV Lopressor given without result patient put on diltiazem drip. Oxygen need increased during episode. 09/20 Earlier on 09/20-Little after midnight, the patient developed agitation. He pulled out his IVs. He began to experience hallucinations. He was on the CIWA protocol received lorazepam, which seemed to worsen his symptoms. He received a dose of Seroquel orally, however continued to have worsening behavior. He received Zyprexa IM x2. He required restraints for safety. Eventually Police Department was called for security and resaw carriage operator were on scene as well to help manage the patient's behavior. In spite of the above therapies, the patient continued to experience worsening agitation and hallucinations and delirium. He was started on Precedex infusion without significant effect, which was stopped after 30 minutes due to the development of hypotension. Ketamine was considered, however patient's blood pressure was on the low side at that time. During this, Ambriz catheter was placed with about 300 mils of urine return, ruling out significant bladder discomfort as a cause of agitation. Blood gas showed no hypercarbia, did show hypoxia which was pre-existing. There are no apparent new complaints of pain prior to this onset. Due to worsening clinical status, decision was made to intubate. Dr. Hendrickson from the emergency department performed the intubation using glide scope. Patient received 2 mg of Versed with some sedative effect, post intubation required 2 mg further Versed prior to sedation via infusion. Daytime course 09/20-when intubation, the patient required significant doses of propofol and Versed to maintain adequate sedation. Blood pressure rebounded following intubation, then decreased with sedation. Eventually required further boluses and subsequently initiation of norepinephrine via a peripheral line. Labs from post intubation showed acute kidney injury, which had improved by the afternoon. Urine output picked up with improvement in blood pressure. Antibiotic coverage expanded to include vancomycin and Zosyn, continuing doxycycline for atypical coverage given his extensive and worsening bilateral infiltrates. 09/21 Has remained intubated, sedated with propofol and Versed. Still becomes agitated when sedation is lightened. No longer requiring pressors to maintain blood pressure while sedated. Chest x-ray is improved this morning. P/F remaining generally stable. Has started tube feeds for nutrition. 09/22 Patient's visited yesterday. She provided further history that the patient has significant intake of hard liquor, starting to drink in the morning, consuming all day long, arising at night to have further intake. Remains on diltiazem drip for A. fib rate control. Not requiring pressors for blood pressu re while sedated. On propofol with adjunct midazolam for sedation. Still quite agitated whenever sedation is lightened. Also receiving chlordiazepoxide per tube for withdrawal symptoms. Ventilator stable, P/F ratio in the 120s. Radiograph stable. 09/23/2019 Patient remains sedated. He is requiring less Versed as an adjunct to the propofol. Was able to follow some commands earlier today them started becoming more agitated and trying to pull out lines and tubes through the restraints. Also receiving chlordiazepoxide via the tube for withdrawal symptoms. ABG this morning with PaO2 of 41, improved with PEEP increased to 15 and FiO2 to 0.60. Converted from A. fib to normal sinus rhythm overnight. 09/24 Patient remains intubated. Sedation is lightened, no longer on Versed infusion. Still requiring propofol, however, when lightened able to follow some directions, though still tends to want to pull on lines and tubes. Continues to receive chlordiazepoxide via an NG tube for withdrawal symptoms. Still with significant P/F ratio, remains on 60% FiO2. Updated his at bedside today. 09/25 FiO2 still 60% agreeable to wean down his PEEP down to 10, unsuccessful in trying to wean down to 8. Chest x-ray unchanged. A 5 on the ventilator with minimal improvement. Patient likely needs to be transferred to higher level of care He is awake and alert and following directions. Discussed the case with linter drier operator, Dr. George, who has graciously accepted the patient. A: *ETOH W/D: With further history of significant daily alcohol consumption, this presentation is consistent with severe alcohol withdrawal syndrome. Symptoms began a little over 72 hours after admission. Further history from , notes heavy daily consumption of hard liquor, even arising at night for further consumption. REsolved *Encephalopathy: 2/2 above, Improved *Required Intubation during etoh w/d episode: during event on he had increasing O2 needs -Intubated 09/20 *Pneumonia: likely initially viral (Human Metapneumovirus +). concern for ARDS -MRSA screen (+), Strep Ur Ag & Myco neg, PCT/CRP neg *Acute Hypoxic Resp Falure: *AECOPD (not on home O2): *LAWSON: resovled *Lactic acidosis: resolved *SIRS: improved *Leukopenia/Thrombocytopenia: 2/2 above, stable *Afib RVR: On amiodarone and Lopressor and Eliquis. -follows with Dr. Kenney *h/o CVA: *HTN/HLD: *Obesity: *SILVIA intolerant to CPAP: *Depression: *CKD: *Anemia, chronic: *Depression: *Hypomag/phos/braden: - Time Spent with Patient Total time spent providing and/or coordinating transfer services: Greater than 30 minutes Transfer Discharge Sum: Exam - Constitutional Vitals: Vital Signs Temp Pulse Resp Resp BP Pulse Ox Pulse Ox 09/25/19 08:01 97.8 F 158/105 91 09/25/19 07:25 13 93 09/25/19 07:01 96.8 F L 156/103 90 09/25/19 06:43 13 90 09/25/19 06:10 90 09/25/19 06:01 190/106 91 09/25/19 05:57 190/107 91 09/25/19 05:34 90 09/25/19 05:02 193/106 88 L 09/25/19 05:00 13 90 09/25/19 04:29 193/96 90 09/25/19 04:27 89 L 09/25/19 04:02 201/100 88 L 09/25/19 03:58 200/106 88 L 09/25/19 03:42 196/98 89 L 09/25/19 03:18 189/101 92 09/25/19 03:06 92 09/25/19 03:01 190/97 92 09/25/19 03:00 12 92 09/25/19 02:34 98 09/25/19 02:00 13 176/99 91 09/25/19 01:00 13 179/103 91 92 09/25/19 00:41 15 92 09/25/19 00:00 162/90 92 09/24/19 23:59 97.2 F 162/90 92 09/24/19 23:45 159/93 93 09/24/19 23:20 156/93 93 09/24/19 23:10 14 92 09/24/19 22:23 92 09/24/19 22:22 92 09/24/19 22:00 159/93 09/24/19 21:15 15 95 09/24/19 21:01 146/81 94 09/24/19 20:10 95 09/24/19 20:00 96.6 F L 12 158/98 96 09/24/19 19:01 153/89 96 09/24/19 18:40 13 97 09/24/19 18:00 96.5 F L 132/80 94 09/24/19 17:03 13 94 09/24/19 17:00 139/81 94 09/24/19 16:00 148/89 96 09/24/19 15:26 15 95 09/24/19 15:21 15 95 09/24/19 15:00 133/81 95 09/24/19 14:01 130/80 93 09/24/19 14:00 13 94 09/24/19 13:11 16 92 09/24/19 13:01 130/80 90 09/24/19 12:53 96.6 F L 131/77 90 09/24/19 12:01 132/69 94 09/24/19 11:09 66 13 94 09/24/19 11:01 137/75 95 09/24/19 10:55 67 13 Intake and Output 09/24/19 09/25/19 09/25/19 21:59 05:59 13:59 Intake Total 667 972 430 Output Total 2583 570 100 Balance -1916 402 330 Intake: IV 219 149 400 Sodium Chloride 0.9% 250 ml @ 0 250 20 mls/hr IV .[id number] [facility] Rx#: [id number] Precedex 400 Mcg/100 ml 70 99 100 Dextrose 400 Mcg In Premix 1 Bag @ 0.2 MCG/KG/HR 7.693 mls/ hr IV .Q13H [facility] Rx#:[id number] Zosyn 3.375 gm In Dextrose 5% 50 50 50 in Water 50 ml @ 100 mls/hr IV Q6H [facility] Rx#:[id number] Diprivan 1,000 mg In Premix 1 49 Bag @ 5 MCG/KG/MIN 4.506 mls/hr IV .[id number] [facility] Rx#:[id number] Tube Feeding 388 733 0 GI Tube Flush 60 90 30 Output: Urine Catheter Amount 2583 570 100 Other: Urine Appearance Clear Clear Clear Uretheral (Ambriz) Clear Clear Clear Urine Color Bright Yellow Bright Yellow Bright Yellow Uretheral (Ambriz) Straw Bright Yellow Bright Yellow Urine Odor Normal Normal Uretheral (Ambriz) Normal Normal Stool Size Moderate Stool Color Brown Black Stool Consistency Loose Weight 152.135 kg Transfer Discharge Sum: Data Procedures and tests throughout hospitalization: Pending Orders 09/16/19 Consult to Physician [CONS] Stat 09/16/19 22:20 Resuscitation Status Routine 09/16/19 23:00 Admit as Inpatient Routine Ambulate-Progressive BID CIWA Protocol .ROUTINE panel monitor CONT Elevate head of bed .ROUTINE IV Insertion/Management QSHIFT Intake and Output Q1H Notify Provider .routine Notify Provider PRN Weight Monitoring [address] RD to Adjust Diet/Supplements as Needed Routine Occupational Therapy Eval & Tx DAILY Physical Therapy Eval & Tx QD-BID Incentive Spirometry Assess/Tx Q1HWA Nebulizer management .Routine PEP Therapy/Acapella .ROUTINE Pulse Oximetry .ROUTINE 09/18/19 09:00 Chlorhexidine bathing DAILY 09/18/19 09:11 TEDS [Anti-Embolism Devices] DAILY 09/18/19 13:15 Oxygen Order .Routine 09/18/19 19:07 Communication order NOW 09/18/19 22:43 Contact precautions CONT Droplet precautions CONT 09/19/19 08:40 Nebulizer management .Routine 09/20/19 05:00 Elevate head of bed DAILY GI Tube Management Q4H Hand Hygiene DAILY Notify Provider PRN Oral hygiene BID Ventilator Sedation Score-Int Q2 Ventilator Management 01,03,05 Vent Weaning Routine 09/20/19 05:36 Ambriz [Indwelling Urinary Catheter] CONT 09/20/19 05:47 Acetaminophen [Tylenol] 650 mg PO Q6HP PRN HYDROcodone/APAP 5/325MG [[place] 5/325Mg] 1 tab PO Q4-6HP PRN Labetalol [Trandate] See Dose Instructions IV Q2HP PRN Levalbuterol [Xopenex] 1.25 mg NEB Q4HP PRN Magnesium Sulfate 2 gm in 50 ml IV UD Melatonin [Melatonin 3Mg Tablet] 3 mg PO HSP PRN Ondansetron [Zofran] 4 mg IV Q4HP PRN Polyethylene Glycol 3350 [Miralax] 17 gm PO DAILYP PRN Potassium Chloride 40 meq Dextrose 5% in Water 500 ml IV UD Potassium Chloride [Kdur] 40 meq PO UD PRN Potassium Chloride [Kdur] 40 meq PO UD PRN Premix 1 bag Propofol [Diprivan] 1,000 mg IV 5 mcg/kg/min Sennosides [Senokot] 2 tab PO DAILYP PRN 09/20/19 06:00 0.9 % Sodium Chloride [Saline Flush] 10 ml IV Q8 09/20/19 07:15 0.9 % Sodium Chloride [Sodium Chloride 0.9%] 250 ml IV 20 mls/hr 09/20/19 09:00 Allopurinol [Zyloprim] 200 mg PO QDAY Amiodarone HCl [Cordarone] 200 mg PO QDAY Chlorhexidine Gluconate [Peridex] 15 ml SWABMOUTH BID Furosemide [Lasix] 40 mg PO BID@0900,1500 Ipratropium [Atrovent] 2.5 ml NEB Q8H Lactobacillus [Culturelle] 1 cap PO BID Mupirocin Oint 2% [Bactroban Oint 2%] 1 dose TOPICAL BID Potassium Chloride [Klor-Con] 20 meq PO BID Sertraline [Zoloft] 200 mg PO QDAY Simvastatin [Zocor] 40 mg PO QAM Thiamine [Vitamin B1] 100 mg PO DAILY 09/20/19 11:22 NPO Diet (NOW) 09/20/19 17:16 Wound Nurse Referral .Routine 09/21/19 07:00 ABG (RT) DAILY 09/21/19 09:00 Gabapentin [Neurontin] 300 mg PT TID 09/21/19 09:37 PICC Line .ROUTINE 09/21/19 09:47 Consent for Procedure NOW Heat Therapy Device Management DAILY PICC Dressing Change PRN 0.9 % Sodium Chloride [Saline Flush] 10 ml IV UD PRN 09/21/19 09:48 PICC Dressing Change PRN 09/21/19 11:06 Aspiration precautions CONT Cooler Tender Referral CONT Measure gastric residual .ROUTINE Tube Feeding Instructions .ROUTINE 09/21/19 21:00 Heparin Flush 2 ml IV Q12 Heparin Flush 2 ml IV Q12 09/21/19 21:02 chlordiazePOXIDE [Librium] 25 mg PO Q4HP PRN 09/21/19 22:00 Communication order NOW 09/21/19 23:18 Restraints Q30M 09/22/19 09:00 Apixaban [Eliquis] 5 mg PO BID Nystatin 500,000 units SSP QID methylPREDNISolone SOD SUCC [Solu-MEDROL] 40 mg IV DAILY 09/22/19 09:30 Norepinephrine Bitartrate [Levophed] 16 mg 0.9 % Sodium Chloride [Sodium Chloride 0.9%] 234 ml IV Q24HP 09/23/19 11:14 LORazepam [Ativan] 1 mg IV Q2HP PRN 09/24/19 08:30 Diltiazem [Cardizem] 125 mg Dextrose 5% in Water 100 ml IV Q8HP 09/24/19 10:15 Premix 1 bag Dexmedetomidine [Precedex 400 Mcg/100 ml Dextrose] 400 mcg IV 0.2 mcg/kg/hr 09/24/19 20:00 Accu-Chek 1 each FS Q6 09/24/19 21:00 restraints [Restraint: (Non-violent) Daily] DAILY 09/26/19 04:00 Inpatient Panel DAILY 09/27/19 09:48 PICC Dressing Change Q7D Transfer Discharge Sum: A/P - Problem Maintenance (1) Acute and chronic respiratory failure with hypoxia Status: Acute - Plan Disposition: Home, Self-Care
== END 2019-09-25 12:15 | disposition short-term general hospital (02) | DRG 207 ==
LOC: ED 17:35 → SUATTDRO 22:54 → ICU 22:54
PROVIDERS: ADMIT Internal Medicine; ATTEND Internal Medicine